=== PATIENT | male | born 1945 | race Caucasian/White ===

== ENCOUNTER 2022-04-07 17:57 | Inpatient (IN) | payer OTHER, SELFPAY ==
--- NOTE | ~2022-04-07 | XR_ITS ---
EXAMINATION: XR CHEST CLINICAL INFORMATION: 76-year-old male with dyspnea COMPARISON: None TECHNIQUE: Frontal view of the chest was obtained. FINDINGS: There is low lung volume bilaterally with mild vascular redistribution. Cardiomediastinal silhouette is normal. There is no pleural effusion or consolidation. XR/XR chest 1V IMPRESSION: Mild CHF
--- NOTE | ~2022-04-07 | XR_ITS ---
EXAMINATION: XR CHEST CLINICAL INFORMATION: NG tube placement. Covid positive. COMPARISON: 04/07/2022 TECHNIQUE: Frontal view of the chest was obtained. FINDINGS: Enteric tube extends into the stomach. Cardiac leads overlie the chest. The lungs are well expanded. There is no focal consolidation, edema, or effusion. No pneumothorax. The cardiomediastinal silhouette is within normal limits of size with a calcified aorta. No acute osseous abnormality. XR/XR chest 1V IMPRESSION: Enteric tube extending into the stomach.
--- NOTE | ~2022-04-07 | CT_ITS ---
EXAMINATION: CT ABDOMEN AND PELVIS WITHOUT CONTRAST CLINICAL INFORMATION: Vomiting COMPARISON: None TECHNIQUE: Multidetector volumetric imaging was performed from the superior aspect of the liver through the pubic symphysis. Sagittal and coronal reformatted images were obtained on the technologist's workstation. This CT examination was performed using dose optimization techniques as appropriate, variously including the following: *Automated exposure control *Adjustment of mA and/or kV according to patient size (this includes techniques or standardized protocols for targeted exams where dose is matched to indication/reason for exam; i.e. extremities or head) *Use of iterative reconstruction technique DLP: 1797 mGy-cm FINDINGS: LUNG BASES: Bibasilar atelectasis. The visualized cardiac structures are unremarkable. Bilateral gynecomastia. LIVER, GALLBLADDER, AND BILIARY TREE: The liver is normal in size, shape, and attenuation. No focal hepatic lesion or biliary ductal dilatation is present. Multiple stones layering in the gallbladder lumen. No wall thickening or inflammatory change. PANCREAS: Unremarkable. SPLEEN: Unremarkable. ADRENAL GLANDS: Unremarkable. KIDNEYS AND URETERS: The kidneys are normal in size, shape, and attenuation. No hydronephrosis, hydroureter, or calculi seen. No perinephric stranding. Excretion of contrast bilaterally. BLADDER: Contrast filled. No wall thickening. GASTROINTESTINAL TRACT: Distended stomach no wall thickening. Normal caliber small bowel. No obstruction. There is extensive colonic diverticulosis without diverticulitis. No colonic wall thickening. No free air or free fluid. There is mild stranding of the fat in the perirectal region. ABDOMINAL WALL: No significant hernia is appreciated. LYMPH NODES: No lymphadenopathy. There is appearance of a lizbeth mesentery . VASCULAR: Normal caliber aorta with moderate atherosclerotic calcification. Duplicated IVC. PELVIC VISCERA: The prostate and seminal vesicles are unremarkable. OSSEOUS STRUCTURES: No acute or suspicious osseous abnormality. Moderate degenerative changes throughout the spine. Mild degenerative changes of the hips. CT/CT abdomen pelvis wo con IMPRESSION: No bowel obstruction. The stomach is significantly distended. Cholelithiasis without evidence of cholecystitis. Appearance of a lizbeth mesentery . Typically this is not of clinical significance, but 6 month follow-up abdominal CT could be performed to evaluate for stability. Fleischner guidelines were followed.
--- NOTE | ~2022-04-07 | CT_ITS ---
EXAMINATION: CT ANGIOGRAM OF THE CHEST WITH AND WITHOUT CONTRAST (CT PULMONARY ANGIOGRAM FOR PE) CLINICAL INFORMATION: hypoxia, COVID + elevated ddimer COMPARISON: None TECHNIQUE: Prior to contrast administration, noncontrast localization images were obtained. Subsequently, multidetector volumetric imaging was performed from the thoracic inlet to below the diaphragms following the administration of 75 mL Omnipaque 350 intravenous contrast. No contrast reaction reported Sagittal, coronal, and MIP oblique sagittal reformatted images were obtained on the CT workstation, uploaded to PACS, and reviewed. This CT examination was performed using dose optimization techniques as appropriate, variously including the following: *Automated exposure control *Adjustment of mA and/or kV according to patient size (this includes techniques or standardized protocols for targeted exams where dose is matched to indication/reason for exam; i.e. extremities or head) *Use of iterative reconstruction technique Total exam dose-length product 666 mGy-cm FINDINGS: QUALITY OF STUDY/CONTRAST BOLUS: Suboptimal. PULMONARY ARTERIES: There is extensive respiratory motion artifact and contrast under filling of the segmental and subsegmental pulmonary arteries particularly to the lower lobes. No central pulmonary embolus seen. THORACIC AORTA: No aneurysm or dissection. LUNG: Patchy areas of nodular groundglass opacity are seen in the right lower lobe. Mild bibasilar atelectasis. Bilateral lower lobe bronchial wall thickening. No dense focal consolidation. PLEURA: No pleural effusion or pneumothorax. MEDIASTINUM: Borderline cardiomegaly. Three-vessel coronary artery calcification. No hilar or mediastinal lymphadenopathy. No evidence of septal bowing or right heart strain. CHEST WALL/AXILLA: Bilateral gynecomastia. No axillary or internal mammary lymphadenopathy. OSSEOUS STRUCTURES: No acute or suspicious osseous abnormality. UPPER ABDOMEN: Gallstones. No adrenal mass. Significantly distended stomach. No reflux of contrast into the hepatic veins to suggest elevated right heart pressures. CT/CT angio chest PE protocol IMPRESSION: Limited study. No central pulmonary embolus. The stomach is only partially imaged but appears significantly dilated.
--- NOTE | 2022-04-07 18:13 | ED.NAVMDI ---
HPI - Nausea/Vomiting/Diarrhea General Chief complaint: General Medical Stated complaint: Nausea Vomiting covid+ Time Seen by Provider: 04/07/22 18:13 Source: patient Mode of arrival: EMS Limitations: no limitations History of Present Illness HPI Narrative: 76 yo male with hx of anemia, alcoholism, HTN, obesity, unsteady gait, CKD, COVID + as of saturday he is vaccinated - reports vomiting since yesterday he denies chest pain/shortness of breath. He has no abdominal pain or diarrhea. He states he otherwise feels fine. EMS notes his O2 sats were 88% en route. No treatments for COVID at this time. MD elicited complaint: nausea and vomiting Onset (ago): day(s) (2) Description of vomiting: food contents, watery, bilious and other (patient possibly had coffee ground emesis per SNF but EMS is not sure and did not witness this.) Associated nausea: Yes Associated abdominal pain: No Location of pain: none Severity: mild Exacerbating factors: eating Relieving factors: none Context: sick contacts and other (dx with COVID on saturday ) Associated symptoms: loss of appetite, malaise and nausea/vomiting Treatment prior to arrival: other (zofran at SNF and with EMS) Related Data Allergies Allergy/AdvReac Type Severity Reaction Status Date / Time No Known Allergies Allergy Verified 04/07/22 18:25 Review of Systems Review of Systems: Constitutional : No Weight loss, No Fever, No Chills, pos fatigue, pos malaise ENT/Mouth : No sore throat, No Rhinorrhea Eyes: No Swelling, No Redness Cardiovascular : No Chest Pain, No SOB, NoEdema Respiratory : No Cough, No Sputum, No Wheezing Gastrointestinal : Positive Nausea, Positive Vomiting, no Diarrhea, no abdominal Pain, No Hematochezia, No Melena Genitourinary : No Dysuria, No Urinary Frequency, No Hematuria, No Urgency Musculoskeletal : No joint pain, No Myalgias, No Joint Swelling Skin : No Skin Lesions, No rash Neuro : pos Weakness, No Numbness, No Dizziness, No Headache Psych : No Anxiety/Panic, No Depression Heme/Lymph: No Bruising, No Lymphadenopathy Endocrine : No Polyuria, No Polydipsia All other systems reviewed and are negative. Gastrointestinal: Gastrointestinal: Reports nausea PMFSH Past Medical History Attestation statement: The following information was validated with the patient. Medical History Alcoholism Anemia CKD (chronic kidney disease) HTN (hypertension) Unsteady gait Social History Social History (Updated 04/07/22 @ 18:38 by Amy Durand DO) Patient Tobacco Use Status: Never used Tobacco Advance Directives: No Advance Directives Information Provided: No Physical Exam Vital Signs: Vital Signs: Last Vital Signs Temp 98.5 F 04/07/22 22:58 Pulse 77 04/07/22 22:58 Resp 16 04/07/22 22:58 BP 140/56 H 04/07/22 22:58 Pulse Ox 91 L 04/07/22 22:58 O2 Del Method 04/07/22 22:58 O2 Flow Rate 2 04/07/22 22:58 BMI result Body Mass Index 48.4 Appearance: Alert. Oriented X3. No acute distress. Eyes: Pupils equal, round and reactive to light. ENT: Pharynx normal. Neck: Normal inspection. Neck supple. CVS: Normal heart rate and rhythm. Pulses normal. Respiratory: No respiratory distress. Breath sounds diminished at the bases bilaterally Abdomen: Soft and non-tender. Obese Skin: Skin warm and dry. pale skin color. Extremities:bilateral pitting 2+ lower extremity edema. No calf ttp. Dry thickened skin on toes yellow Neuro: Oriented X 3. No motor deficit. No sensory deficit. Course Course Course Narrative: ddimer elevated CTA for PE ordered given hypoxia, obesity and COVID + IV lasix ordered - has CXR edema and peripheral edema stomach distended - CT scan ordered marked stomach distention will order NG tube given persistent NV - will need admission MDM - Nausea/Vomiting/Diarrhea MDM Narrative Medical decision making narrative: 76 yo male with hx of anemia, alcoholism, HTN, obesity, unsteady gait, CKD, COVID + here with c/o nausea and vomiting since yesterday he denies abdominal pain. He also denies CP/SOB. At this time he is hypoxic. Will obtain basic labs, cultures, lactic acid, EKG, CXR for pneumonia, ddimer/troponin. IV pepcid in case there was some mild coffee ground emesis, given hypoxia will also start on dexamethasone. Anticipate admission given hypoxia. Lab Data Result diagrams: 04/07/22 19:52 04/07/22 19:52 Labs: Lab Results 04/07/22 04/07/22 04/07/22 Range/Units 19:52 19:52 19:52 WBC 13.0 H (4.8-10.8) X10*3/uL RBC 5.83 H (4.60-5.80) X10*6/uL Hgb 16.4 (14.0-18.0) g/dl Hct 50.9 (42.0-52.0) % MCV 87.3 (80.0-98.0) fL MCH 28.1 (27.0-33.0) pg MCHC 32.2 (31.0-36.0) g/dl RDW 13.7 (11.0-16.0) % Plt Count 191 (160-400) X10*3/uL MPV 9.4 (9.4-12.4) fL Immature Gran % (Auto) 0.5 H (0.0-0.4) % Neut % (Auto) 88.3 H (45-73) % Lymph % (Auto) 3.5 L (20-40) % [place] % (Auto) 7.5 (2-11) % Eos % (Auto) 0.0 (0-4) % Baso % (Auto) 0.2 (0-2) % Lymph # (Auto) 0.5 L (1.2-4.9) X10*3/uL [place] # (Auto) 1.0 (0.1-1.2) X10*3/uL Eos # (Auto) 0.0 (0.0-0.4) X10*3/uL Baso # (Auto) 0.0 (0.0-0.2) X10*3/uL Abs Immat Gran (auto) 0.06 H (0.00-0.03) X10*3/uL Absolute Neuts (auto) 11.5 H (2.0-8.3) x10*3/uL Absolute Nucleated RBC 0.000 (0.0-0.012) X10*3/uL Nucleated RBC % (auto) 0.0 (0.0-0.2) /100WBC Smear Tech's Comments VERIFIED PT (10.0-13.1) SEC INR (0.9-1.1) D-Dimer High Sensitivty NG/ML VBG pH (7.32-7.43) VBG pCO2 mmHg VBG pO2 mmHg VBG HCO3 (22-26) mmol/L VBG O2 Saturation % VBG Base Excess mmol/L Sodium 143 (135-145) mmol/L Potassium 3.7 (3.3-5.1) mmol/L Chloride 93 L (96-108) mmol/L Carbon Dioxide 36 H (22-29) mmol/L Anion Gap 18 (12-20) BUN 17 H (9-16) mg/dL Creatinine 0.78 (0.5-1.4) mg/dL Estim Creat Clear Calc 130.8 Estimated GFR > 60 Random Glucose 172 H (60-115) mg/dL Lactic Acid (0.5-2.0) mmol/L Calcium 9.3 (8.4-10.2) mg/dL Magnesium 1.9 (1.6-2.6) mg/dL Total Bilirubin 0.6 (0.0-1.0) mg/dL Direct Bilirubin 0.3 (0.0-0.5) mg/dL AST 18 (5-37) U/L ALT 15 (0-40) U/L Alkaline Phosphatase 86 (39-117) U/L Lactate Dehydrogenase 192 (118-273) U/L Total Creatine Kinase 94 (38-174) U/L Troponin I High Sens 4.7 (<3.5-35.0) ng/L C-Reactive Protein 4.34 H (< or = 0.50) mg/dL B-Natriuretic Peptide 22 (<100) pg/mL Total Protein 7.9 (6.5-8.0) g/dL Albumin 3.9 (3.5-5.0) g/dL Lipase 24 (8-78) U/L Procalcitonin ng/mL COVID-19 ([facility]) (Negative) COVID-19 Clin Com 04/07/22 04/07/22 04/07/22 Range/Units 19:52 19:52 19:52 WBC (4.8-10.8) X10*3/uL RBC (4.60-5.80) X10*6/uL Hgb (14.0-18.0) g/dl Hct (42.0-52.0) % MCV (80.0-98.0) fL MCH (27.0-33.0) pg MCHC (31.0-36.0) g/dl RDW (11.0-16.0) % Plt Count (160-400) X10*3/uL MPV (9.4-12.4) fL Immature Gran % (Auto) (0.0-0.4) % Neut % (Auto) (45-73) % Lymph % (Auto) (20-40) % [place] % (Auto) (2-11) % Eos % (Auto) (0-4) % Baso % (Auto) (0-2) % Lymph # (Auto) (1.2-4.9) X10*3/uL [place] # (Auto) (0.1-1.2) X10*3/uL Eos # (Auto) (0.0-0.4) X10*3/uL Baso # (Auto) (0.0-0.2) X10*3/uL Abs Immat Gran (auto) (0.00-0.03) X10*3/uL Absolute Neuts (auto) (2.0-8.3) x10*3/uL Absolute Nucleated RBC (0.0-0.012) X10*3/uL Nucleated RBC % (auto) (0.0-0.2) /100WBC Smear Tech's Comments PT 11.8 (10.0-13.1) SEC INR 1.0 (0.9-1.1) D-Dimer High Sensitivty 441 NG/ML VBG pH (7.32-7.43) VBG pCO2 mmHg VBG pO2 mmHg VBG HCO3 (22-26) mmol/L VBG O2 Saturation % VBG Base Excess mmol/L Sodium (135-145) mmol/L Potassium (3.3-5.1) mmol/L Chloride (96-108) mmol/L Carbon Dioxide (22-29) mmol/L Anion Gap (12-20) BUN (9-16) mg/dL Creatinine (0.5-1.4) mg/dL Estim Creat Clear Calc Estimated GFR Random Glucose (60-115) mg/dL Lactic Acid 1.7 (0.5-2.0) mmol/L Calcium (8.4-10.2) mg/dL Magnesium (1.6-2.6) mg/dL Total Bilirubin (0.0-1.0) mg/dL Direct Bilirubin (0.0-0.5) mg/dL AST (5-37) U/L ALT (0-40) U/L Alkaline Phosphatase (39-117) U/L Lactate Dehydrogenase (118-273) U/L Total Creatine Kinase (38-174) U/L Troponin I High Sens (<3.5-35.0) ng/L C-Reactive Protein (< or = 0.50) mg/dL B-Natriuretic Peptide (<100) pg/mL Total Protein (6.5-8.0) g/dL Albumin (3.5-5.0) g/dL Lipase (8-78) U/L Procalcitonin ng/mL COVID-19 ([facility]) Positive A (Negative) COVID-19 Clin Com See Note 04/07/22 04/07/22 04/07/22 Range/Units 19:52 19:52 19:59 WBC (4.8-10.8) X10*3/uL RBC (4.60-5.80) X10*6/uL Hgb (14.0-18.0) g/dl Hct (42.0-52.0) % MCV (80.0-98.0) fL MCH (27.0-33.0) pg MCHC (31.0-36.0) g/dl RDW (11.0-16.0) % Plt Count (160-400) X10*3/uL MPV (9.4-12.4) fL Immature Gran % (Auto) (0.0-0.4) % Neut % (Auto) (45-73) % Lymph % (Auto) (20-40) % [place] % (Auto) (2-11) % Eos % (Auto) (0-4) % Baso % (Auto) (0-2) % Lymph # (Auto) (1.2-4.9) X10*3/uL [place] # (Auto) (0.1-1.2) X10*3/uL Eos # (Auto) (0.0-0.4) X10*3/uL Baso # (Auto) (0.0-0.2) X10*3/uL Abs Immat Gran (auto) (0.00-0.03) X10*3/uL Absolute Neuts (auto) (2.0-8.3) x10*3/uL Absolute Nucleated RBC (0.0-0.012) X10*3/uL Nucleated RBC % (auto) (0.0-0.2) /100WBC Smear Tech's Comments PT (10.0-13.1) SEC INR (0.9-1.1) D-Dimer High Sensitivty NG/ML VBG pH 7.46 H (7.32-7.43) VBG pCO2 62 mmHg VBG pO2 62 mmHg VBG HCO3 44 H (22-26) mmol/L VBG O2 Saturation 89.0 % VBG Base Excess 16.2 mmol/L Sodium (135-145) mmol/L Potassium (3.3-5.1) mmol/L Chloride (96-108) mmol/L Carbon Dioxide (22-29) mmol/L Anion Gap (12-20) BUN (9-16) mg/dL Creatinine (0.5-1.4) mg/dL Estim Creat Clear Calc Estimated GFR Random Glucose (60-115) mg/dL Lactic Acid (0.5-2.0) mmol/L Calcium (8.4-10.2) mg/dL Magnesium (1.6-2.6) mg/dL Total Bilirubin (0.0-1.0) mg/dL Direct Bilirubin (0.0-0.5) mg/dL AST (5-37) U/L ALT (0-40) U/L Alkaline Phosphatase (39-117) U/L Lactate Dehydrogenase (118-273) U/L Total Creatine Kinase (38-174) U/L Troponin I High Sens Cancelled (<3.5-35.0) ng/L C-Reactive Protein (< or = 0.50) mg/dL B-Natriuretic Peptide (<100) pg/mL Total Protein (6.5-8.0) g/dL Albumin (3.5-5.0) g/dL Lipase (8-78) U/L Procalcitonin 0.05 ng/mL COVID-19 ([facility]) (Negative) COVID-19 Clin Com ECG Data Attestation: I personally reviewed and interpreted this ECG as follows: ECG interpretation date: 04/07/22 ECG interpretation time: 19:23 Interpretation: Rate: 84 Rhythm: NSR [place]: normal Normal P waves. Normal SUSAN. Normal QRS complex. ST T wave : normal no JACOB qTC: normal prior studies: no acute ischemia The study has been interpreted contemporaneously by me. . Discharge Plan Discharge Clinical Impression: COVID-19, Hypoxia, CRP elevated, Vomiting, Gastric dilation Patient Disposition: Admitted As Inpatient
[2022-04-07 18:23] VITALS: BP 148/69; PULSE 84; RESP 11; TEMP 37.1; O2SAT 88; BMI 48.4
--- NOTE | 2022-04-07 18:27 | ECG_ITS ---
Test Reason : VOMITING Blood Pressure : / mmHG Vent. Rate : 084 BPM Atrial Rate : 084 BPM P-R Int : 164 ms QRS Dur : 094 ms QT Int : 388 ms P-R-T Axes : 063 071 056 degrees QTc Int : 458 ms Normal sinus rhythm Normal ECG No previous ECGs available Referred By: Amy Durand Electronically Signed By:JUNA FAIRBANKS
[2022-04-07 18:31] VITALS: O2SAT 92
[2022-04-07] MEDS: Famotidine/PF 20 MG/2 ML VIAL IVPUSH (18:46)
[2022-04-07] MEDS: dexAMETHasone sod phosphate 4 MG/ML VIAL 6 MG IVPUSH (18:46)
[2022-04-07 20:02] LABS: Venous Blood Gas Refer to POC result
[2022-04-07 20:02] LABS: Basophils Percent Auto 0.2 % (0-2); MANUAL DIFF FLAG SCAN; PLT CLUMP 1; SCAN SMEAR FLAG 1
[2022-04-07 20:04] LABS: VBG Base Excess 16.2 mmol/L; VBG HCO3 44 mmol/L (22-26); VBG pCO2 62 mmHg; VBG pH 7.46 (7.32-7.43); VBG pO2 62 mmHg
[2022-04-07 20:04] LABS: Red Blood Count 5.83 X10*6/uL (4.60-5.80)
[2022-04-07 20:09] LABS: Prothrombin Time 11.8 SEC (10.0-13.1)
[2022-04-07 20:10] LABS: COVID-19 Test Positive (Negative); Mean Corpuscular Volume 87.3 fL (80.0-98.0); Mean Platelet Volume 9.4 fL (9.4-12.4); Platelet Count 191 X10*3/uL (160-400)
[2022-04-07 20:11] LABS: D Dimer High Sensitivity 441 NG/ML
[2022-04-07 20:12] LABS: Hematocrit 50.9 % (42.0-52.0); Hemoglobin 16.4 g/dl (14.0-18.0); Imm Gran Abs Auto 0.06 X10*3/uL (0.00-0.03); Imm Gran Pct Auto 0.5 % (0.0-0.4); Lymphocytes Absolute Auto 0.5 X10*3/uL (1.2-4.9); Lymphocytes Percent Auto 3.5 % (20-40); Mean Corpuscular HGB Conc 32.2 g/dl (31.0-36.0); Mean Corpuscular Hemoglobin 28.1 pg (27.0-33.0); Monocytes Percent Auto 7.5 % (2-11); Neutrophils Absolute Auto 11.5 x10*3/uL (2.0-8.3); Neutrophils Percent Auto 88.3 % (45-73); Red Cell Distribution Width 13.7 % (11.0-16.0)
[2022-04-07 20:16] LABS: Lactic Acid 1.7 mmol/L (0.5-2.0)
[2022-04-07 20:22] LABS: Alanine Aminotransferase 15 U/L (0-40); Albumin Level 3.9 g/dL (3.5-5.0); Alkaline Phosphatase 86 U/L (39-117); Anion Gap 18 (12-20); Aspartate Amino Transferase 18 U/L (5-37); Bilirubin Direct 0.3 mg/dL (0.0-0.5); Bilirubin Total 0.6 mg/dL (0.0-1.0); Blood Urea Nitrogen 17 mg/dL (9-16); C Reactive Protein 4.34 mg/dL (< or = 0.50); Calcium 9.3 mg/dL (8.4-10.2); Carbon Dioxide 36 mmol/L (22-29); Chloride 93 mmol/L (96-108); Creatinine Clr Calc Pharmacy 130.8; Estimated Glomerular Filt Rate > 60; Glucose Random 172 mg/dL (60-115); Lactate Dehydrogenase 192 U/L (118-273); Lipase 24 U/L (8-78); Magnesium 1.9 mg/dL (1.6-2.6); Potassium 3.7 mmol/L (3.3-5.1); Sodium 143 mmol/L (135-145); Total Protein 7.9 g/dL (6.5-8.0)
[2022-04-07 20:30] LABS: B Type Natriuretic Peptide 22 pg/mL (<100); Troponin-I High Sensitivity 4.7 ng/L (<3.5-35.0)
[2022-04-07 20:37] LABS: SLIDE REVIEW VERIFIED
[2022-04-07] MEDS: iohexoL 350 MG/ML 100 ML INFUS..BTL IV (20:57)
[2022-04-07] MEDS: Metoclopramide HCl 10 MG/2 ML VIAL IVPUSH (20:58)
[2022-04-07] MEDS: diphenhydrAMINE HCL 50 MG/ML VIAL 25 MG IVPUSH (20:58)
[2022-04-07] MEDS: Furosemide 20 MG/2 ML VIAL IVPUSH (20:58)
[2022-04-07 21:01] LABS: Procalcitonin 0.05 ng/mL
[2022-04-07 22:58] VITALS: BP 140/56; PULSE 77; RESP 16; TEMP 36.9; O2SAT 91
--- NOTE | 2022-04-07 23:54 | P.HPHOSP_ITS ---
History of Present Illness Date of Service: 04/07/22 Chief Complaint: Nausea/vomiting/diarrhea 77-year-old male with a past medical history of hypertension, hyperlipidemia, CKD, anemia, alcohol abuse, anxiety, depression, BPH, history of unsteady gait/recurrent falls presented to the hospital today with a chief complaint of nausea/vomiting/diarrhea. Patient reports that for the past 1 day he has been having na usea/vomiting/diarrhea. Had multiple episodes. Denies any blood in the vomitus or stool. Denies any cough or sputum production. Denies any fevers. Denies any urinary symptoms. Mentions that he has COVID-19 vaccinated. Review of all other systems is negative except mentioned above ER course: Per ER team patient was noted to be mildly hypoxic on presentation; chest x-ray showed no acute findings; COVID-19 positive. Placed on supplemental oxygen. On CT abdomen showed severely dilated stomach; placed NG tube for decompression. Admitted for further management PMFSH Medical History Alcoholism Anemia CKD (chronic kidney disease) HTN (hypertension) Unsteady gait Pertinent family history: Reviewed Social History Household Members: Other Household Members Other:: faclity Housing: [facility] Do you presently have visiting nurse or other home services: Yes (alf per pt) Unable to assess alcohol history related to: Unknown Patient Tobacco Use Status: Never used Tobacco Current occupational status: retired Meds Allergies Allergy/AdvReac Type Severity Reaction Status Date / Time No Known Allergies Allergy Verified 04/07/22 18:25 Home Medications Medication Instructions Recorded Confirmed Last Taken Type acamprosate 333 mg tablet,delayed 2 tab PO BID 04/08/22 04/08/22 04/07/22 History release albuterol sulfate 90 mcg/actuation 2 puff inhalation Q4H PRN Wheezing 04/08/22 04/08/22 Unknown History aerosol inhaler (ProAir HFA) amlodipine 2.5 mg tablet 1 tab PO DAILY 04/08/22 04/08/22 04/07/22 History ammonium lactate 12 % lotion 1 applic topical BID 04/08/22 04/08/22 04/06/22 History aspirin 81 mg tablet,delayed 81 mg PO DAILY 04/08/22 04/08/22 04/07/22 History release atorvastatin 20 mg tablet 1 tab PO DAILY 04/08/22 04/08/22 04/07/22 History cholecalciferol (vitamin D3) 25 25 mcg PO DAILY 04/08/22 04/08/22 04/07/22 History mcg (1,000 unit) tablet diclofenac sodium 1 % topical gel 1 g topical Q6H PRN Pain 04/08/22 04/08/22 Unknown History gabapentin 600 mg tablet 1 tab PO TID 04/08/22 04/08/22 04/07/22 History loperamide 2 mg capsule 2 mg PO Q8H PRN Diarrhea 04/08/22 04/08/22 04/07/22 Hist ory ondansetron HCl 4 mg tablet 1 tab PO Q6H PRN Nausea And 04/08/22 04/08/22 04/07/22 History Vomiting oxycodone 5 mg tablet 1 tab PO BID PRN Pain 04/08/22 04/08/22 04/06/22 History polyvinyl alcohol 1.4 % eye drops 1 drp ophthalmic (eye) BID 04/08/22 04/08/22 04/07/22 History (Artificial Tears (polyvinyl alcohol)) sertraline 100 mg tablet 1 tab PO DAILY 04/08/22 04/08/22 04/07/22 History tamsulosin 0.4 mg capsule 1 cap PO BEDTIME 04/08/22 04/08/22 04/06/22 History thiamine HCl (vitamin B1) 100 mg 100 mg PO DAILY 04/08/22 04/08/22 04/07/22 History tablet trazodone 100 mg tablet 1 tab PO BEDTIME 04/08/22 04/08/22 04/07/22 History Physical Exam Vital Signs and Narrative: Vital Signs: Last Vital Signs Temp 98.5 F 04/07/22 22:58 Pulse 77 04/07/22 22:58 Resp 16 04/07/22 22:58 BP 140/56 H 04/07/22 22:58 Pulse Ox 91 L 04/07/22 22:58 O2 Del Method 04/07/22 22:58 O2 Flow Rate 2 04/07/22 22:58 BMI result Body Mass Index 48.4 Gen: Appears be in no acute distress. On supplemental oxygen. Speaks in full sentences. HEENT: NCAT, Moist mucosa. Pulmonary: Slightly diminished breath sounds CVS: Normal S1-S2 Abdomen: BS+, Soft, Nontender Extremities: Warm well perfused Neuro: Alert and awake. Results Labs CBC and Chem 7: 04/09/22 07:22 04/10/22 10:34 Labs: Laboratory Results - last 24 hr 04/07/22 04/07/22 04/07/22 19:52 19:52 19:52 MCV 87.3 MCH 28.1 MCHC 32.2 RDW 13.7 Plt Count 191 MPV 9.4 Immature Gran % (Auto) 0.5 H Neut % (Auto) 88.3 H Lymph % (Auto) 3.5 L [place] % (Auto) 7.5 Eos % (Auto) 0.0 Baso % (Auto) 0.2 Lymph # (Auto) 0.5 L [place] # (Auto) 1.0 Eos # (Auto) 0.0 Baso # (Auto) 0.0 Abs Immat Gran (auto) 0.06 H Absolute Neuts (auto) 11.5 H Absolute Nucleated RBC 0.000 Nucleated RBC % (auto) 0.0 Smear Tech's Comments VERIFIED PT INR D-Dimer High Sensitivty VBG pH VBG pCO2 VBG pO2 VBG HCO3 VBG O2 Saturation VBG Base Excess Anion Gap 18 Estim Creat Clear Calc 130.8 Estimated GFR > 60 Random Glucose 172 H Lactic Acid Calcium 9.3 Magnesium 1.9 Total Bilirubin 0.6 Direct Bilirubin 0.3 AST 18 ALT 15 Alkaline Phosphatase 86 Lactate Dehydrogenase 192 Total Creatine Kinase 94 C-Reactive Protein 4.34 H B-Natriuretic Peptide 22 Total Protein 7.9 Albumin 3.9 Lipase 24 Procalcitonin COVID-19 ([facility]) COVID-19 Clin Com 04/07/22 04/07/22 04/07/22 19:52 19:52 19:52 MCV MCH MCHC RDW Plt Count MPV Immature Gran % (Auto) Neut % (Auto) Lymph % (Auto) [place] % (Auto) Eos % (Auto) Baso % (Auto) Lymph # (Auto) [place] # (Auto) Eos # (Auto) Baso # (Auto) Abs Immat Gran (auto) Absolute Neuts (auto) Absolute Nucleated RBC Nucleated RBC % (auto) Smear Tech's Comments PT 11.8 INR 1.0 D-Dimer High Sensitivty 441 VBG pH VBG pCO2 VBG pO2 VBG HCO3 VBG O2 Saturation VBG Base Excess Anion Gap Estim Creat Clear Calc Estimated GFR Random Glucose Lactic Acid 1.7 Calcium Magnesium Total Bilirubin Direct Bilirubin AST ALT Alkaline Phosphatase Lactate Dehydrogenase Total Creatine Kinase C-Reactive Protein B-Natriuretic Peptide Total Protein Albumin Lipase Procalcitonin COVID-19 ([facility]) Positive A COVID-19 Clin Com See Note 04/07/22 04/07/22 19:52 19:59 MCV MCH MCHC RDW Plt Count MPV Immature Gran % (Auto) Neut % (Auto) Lymph % (Auto) [place] % (Auto) Eos % (Auto) Baso % (Auto) Lymph # (Auto) [place] # (Auto) Eos # (Auto) Baso # (Auto) Abs Immat Gran (auto) Absolute Neuts (auto) Absolute Nucleated RBC Nucleated RBC % (auto) Smear Tech's Comments PT INR D-Dimer High Sensitivty VBG pH 7.46 H VBG pCO2 62 VBG pO2 62 VBG HCO3 44 H VBG O2 Saturation 89.0 VBG Base Excess 16.2 Anion Gap Estim Creat Clear Calc Estimated GFR Random Glucose Lactic Acid Calcium Magnesium Total Bilirubin Direct Bilirubin AST ALT Alkaline Phosphatase Lactate Dehydrogenase Total Creatine Kinase C-Reactive Protein B-Natriuretic Peptide Total Protein Albumin Lipase Procalcitonin 0.05 COVID-19 ([facility]) COVID-19 Clin Com Imaging Radiologist's Impressions: Impressions Chest X-Ray 04/07/22 18:37 IMPRESSION: Mild CHF Chest CTA 04/07/22 20:45 IMPRESSION: Limited study. No central pulmonary embolus. The stomach is only partially imaged but appears significantly dilated. Abdomen/Pelvis CT 04/07/22 22:51 IMPRESSION: No bowel obstruction. The stomach is significantly distended. Cholelithiasis without evidence of cholecystitis. Appearance of a lizbeth mesentery . Typically this is not of clinical significance, but 6 month follow-up abdominal CT could be performed to evaluate for stability. Fleischner guidelines were followed. Assessment and Plan (1) Nausea & vomiting: Status: Acute Plan 77-year-old male with a past medical history of hypertension, hyperlipidemia, CKD, anemia, alcohol abuse, anxiety, depression, BPH, history of unsteady gait/recurrent falls presented to the hospital today with a chief complaint of nausea/vomiting/diarrhea. Nausea/vomiting/diarrhea: Likely viral gastroenteritis a. CT abdomen showed severely dilated stomach-status post NG tube placement for decompression Will also consult General surgery Hypoxia/COVID-19 positive. Placed on supplemental oxygen. Chest x-ray showed no acute findings. Will give Decadron 6 mg IV daily. Id consult. Incidental finding of Lizbeht mesentery on the CT abdomen: A wanted follow-up CT abdomen in 6 months. History of hypertension/hyperlipidemia: Continue home medications History of depression: Continue home sertraline History of BPH: Continue home Flomax History of unsteady gait/recurrent falls: Denies any recent falls. Reports he uses walker. PT/OT eventually. DVT prophylaxis: Lovenox Code status: Full code Quality Stroke Does the patient have a stroke diagnosis?: No VTE Prior VTE?: No VTE Risk Level:: Medical - moderate - high VTE Device Contraindication: Treatment Not Indicated VTE Drug Contraindication: N/A - Med Ordered
[2022-04-08] VITALS (10 sets, daily range): BP systolic 133–178; BP diastolic 59–111; PULSE 44–85; RESP 2–18; TEMP 36.4–37.4; O2SAT 88–96
[2022-04-08] MEDS: ondansetron HCL 4 MG/2 ML VIAL IVPUSH (02:40)
[2022-04-08] MEDS: Enoxaparin Sodium 40 MG/0.4 ML SYRINGE SUBCUT (02:40)
[2022-04-08] MEDS: traZODone HCL 100 MG TABLET PO (02:40)
[2022-04-08 06:54] LABS: MANUAL DIFF FLAG NO
[2022-04-08 06:59] LABS: Basophils Percent Auto 0.1 % (0-2); Hematocrit 49.2 % (42.0-52.0); Hemoglobin 15.5 g/dl (14.0-18.0); Imm Gran Abs Auto 0.02 X10*3/uL (0.00-0.03); Imm Gran Pct Auto 0.2 % (0.0-0.4); Lymphocytes Absolute Auto 0.7 X10*3/uL (1.2-4.9); Lymphocytes Percent Auto 6.5 % (20-40); Mean Corpuscular HGB Conc 31.5 g/dl (31.0-36.0); Mean Corpuscular Hemoglobin 27.9 pg (27.0-33.0); Mean Corpuscular Volume 88.6 fL (80.0-98.0); Mean Platelet Volume 9.4 fL (9.4-12.4); Monocytes Percent Auto 9.7 % (2-11); Neutrophils Absolute Auto 8.7 x10*3/uL (2.0-8.3); Neutrophils Percent Auto 83.5 % (45-73); Platelet Count 216 X10*3/uL (160-400); Red Blood Count 5.55 X10*6/uL (4.60-5.80); Red Cell Distribution Width 13.7 % (11.0-16.0); White Blood Count 10.4 X10*3/uL (4.8-10.8)
[2022-04-08 07:14] LABS: Anion Gap 17 (12-20); Blood Urea Nitrogen 18 mg/dL (9-16); Carbon Dioxide 35 mmol/L (22-29); Chloride 93 mmol/L (96-108); Creatinine Clr Calc Pharmacy 132.5; Estimated Glomerular Filt Rate > 60; Glucose Random 144 mg/dL (60-115); Sodium 141 mmol/L (135-145)
[2022-04-08 07:26] LABS: Glucose, Whole Blood 137 mg/dL (60-115)
--- NOTE | 2022-04-08 07:51 | PC.NURSE ---
Sebastian from [facility], called requesting an update on pt. Current plan of care reported to Katie. Hutton can be reached at ext [phone].
--- NOTE | 2022-04-08 08:28 | PHA.MEDREC ---
Pharmacy Consult ? Medication Reconciliation Pharmacy has completed the medication reconciliation.
[2022-04-08] MEDS: Tamsulosin HCL 0.4 MG CAPSULE PO (08:37)
[2022-04-08] MEDS: 0.9 % Sodium Chloride Flush 3 ML SYRINGE IVFLUSH (08:37)
[2022-04-08] MEDS: dexAMETHasone sod phosphate 4 MG/ML VIAL 6 MG IVPUSH (08:37)
[2022-04-08] MEDS: Sertraline HCL 100 MG TABLET PO (08:37)
[2022-04-08] MEDS: Atorvastatin Calcium 20 MG TABLET PO (08:37)
[2022-04-08] MEDS: Gabapentin 600 MG TABLET PO (08:37)
--- NOTE | 2022-04-08 08:53 | P.CONGS_ITS ---
History of Present Illness Consult details Consult date: 04/08/22 Requesting physician: Ofe Fernandez Narrative: 77-year-old male patient presenting to the emergency department with complaints of nausea, vomiting, and diarrhea. In the emergency department the patient was noted to be hypoxic requiring supplemental oxygenation. He was determined to be COVID-19 positive. His past history is significant for hypertension, hyperlipidemia, chronic kidney disease, anemia, alcohol abuse, anxiety, depression, BPH, and recurring falls. The nausea and vomiting started approximately 1 day prior to presentation. The diarrhea also started 1 day ago and was without blood. Workup in the emergency department revealed a WBC of 13.0. CT abdomen and pelvis was significant for a dilated stomach and duodenum with normal jejunum and ileum and no evidence of bowel obstruction. Denita mesentery was also identified in the perirectal region. A nasogastric tube was placed in the emergency department. Patient does report a productive cough today. Review of Systems Review of Systems: Yes all other systems are reviewed and are negative Constitutional: Constitutional: Reports body ache(s), Denies chills, Denies fever(s) and Reports frequent falls Cardiovascular: Cardiovascular: Reports Abdominal Distension, Denies chest pain, Denies palpitations and Reports dyspnea Respiratory: Respiratory: Reports cough, Reports excessive phlegm production and Reports dyspnea Gastrointestinal: Gastrointestinal: Denies abdominal pain, Reports diarrhea, Reports nausea and Reports vomiting Genitourinary: Genitourinary: Reports no additional male genitourinary complaints Neurologic: Reports frequent falls Endocrine: Endocrine: Denies palpitations PMFSH Past Medical History Medical History Alcoholism Anemia CKD (chronic kidney disease) HTN (hypertension) Unsteady gait Social History Social History Patient Tobacco Use Status: Never used Tobacco Advance Directives: No Advance Directives Information Provided: No Meds Allergies Allergy/AdvReac Type Severity Reaction Status Date / Time No Known Allergies Allergy Verified 04/07/22 18:25 Active Medications: Current Medications Acetaminophen (Acetaminophen 325 Mg Tablet) 650 mg PO Q6H PRN PRN Reason: Pain, Mild (Pain Scale 1-3) Atorvastatin Calcium (Atorvastatin Calcium 20 Mg Tablet) 20 mg PO DAILY [facility] Last Admin: 04/08/22 08:37 Dose: 20 mg Dexamethasone Sodium Phosphate (Dexamethasone Sod Phosphate 4 Mg/Ml Vial) 6 mg IVPUSH DAILY [facility] Last Admin: 04/08/22 08:37 Dose: 6 mg Dextrose (Dextrose 50 % 25 Gm/50 Ml Syringe) 25 gm IVPUSH Q15M PRN; Protocol PRN Reason: per Hypoglycemia Standing Ord. Enoxaparin Sodium (Enoxaparin Sodium 40 Mg/0.4 Ml Syringe) 40 mg SUBCUT Q24H [facility] Last Admin: 04/08/22 02:40 Dose: 40 mg Gabapentin (Gabapentin 600 Mg Tablet) 600 mg PO TID [facility] Last Admin: 04/08/22 08:37 Dose: 600 mg Glucose (Glucose Gel 15 Gm Gel..Gram.) 15 gm PO Q15M PRN; Protocol PRN Reason: per Hypoglycemia Standing Ord. Insulin Human Lispro (Insulin Lispro 100 Unit/Ml 3 Ml Vial) 0 unit SUBCUT QIDACHS [facility]; Protocol Last Admin: 04/08/22 07:54 Dose: Not Given Melatonin (Melatonin 3 Mg Tablet) 6 mg PO BEDTIME PRN PRN Reason: Insomnia Ondansetron HCl (Ondansetron Hcl 4 Mg/2 Ml Vial) 4 mg IVPUSH Q8H PRN PRN Reason: Nausea and Vomiting Last Admin: 04/08/22 02:40 Dose: 4 mg Sertraline HCl (Sertraline Hcl 100 Mg Tablet) 100 mg PO DAILY [facility] Last Admin: 04/08/22 08:37 Dose: 100 mg Sodium Chloride (0.9 % Sodium Chloride Flush 3 Ml Syringe) 3 ml IVFLUSH QSHIFT [facility] Last Admin: 04/08/22 08:37 Dose: 3 ml Tamsulosin HCl (Tamsulosin Hcl 0.4 Mg Capsule) 0.4 mg PO DAILY [facility] Last Admin: 04/08/22 08:37 Dose: 0.4 mg Trazodone HCl (Trazodone Hcl 100 Mg Tablet) 100 mg PO BEDTIME [facility] Last Admin: 04/08/22 02:40 Dose: 100 mg Home Medications Medication Instructions Recorded Confirmed Last Taken Type acamprosate 333 mg tablet,delayed 2 tab PO BID 04/08/22 04/08/22 04/07/22 History release albuterol sulfate 90 mcg/actuation 2 puff inhalation Q4H PRN Wheezing 04/08/22 04/08/22 Unknown History aerosol inhaler (ProAir HFA) amlodipine 2.5 mg tablet 1 tab PO DAILY 04/08/22 04/08/22 04/07/22 History ammonium lactate 12 % lotion 1 applic topical BID 04/08/22 04/08/22 04/06/22 History aspirin 81 mg tablet,delayed 81 mg PO DAILY 04/08/22 04/08/22 04/07/22 History release atorvastatin 20 mg tablet 1 tab PO DAILY 04/08/22 04/08/22 04/07/22 History cholecalciferol (vitamin D3) 25 25 mcg PO DAILY 04/08/22 04/08/22 04/07/22 Histo ry mcg (1,000 unit) tablet diclofenac sodium 1 % topical gel 1 g topical Q6H PRN Pain 04/08/22 04/08/22 Unknown History gabapentin 600 mg tablet 1 tab PO TID 04/08/22 04/08/22 04/07/22 History loperamide 2 mg capsule 2 mg PO Q8H PRN Diarrhea 04/08/22 04/08/22 04/07/22 History ondansetron HCl 4 mg tablet 1 tab PO Q6H PRN Nausea And 04/08/22 04/08/22 04/07/22 History Vomiting oxycodone 5 mg tablet 1 tab PO BID PRN Pain 04/08/22 04/08/22 04/06/22 History polyvinyl alcohol 1.4 % eye drops 1 drp ophthalmic (eye) BID 04/08/22 04/08/22 04/07/22 History (Artificial Tears (polyvinyl alcohol)) sertraline 100 mg tablet 1 tab PO DAILY 04/08/22 04/08/22 04/07/22 History tamsulosin 0.4 mg capsule 1 cap PO BEDTIME 04/08/22 04/08/22 04/06/22 History thiamine HCl (vitamin B1) 100 mg 100 mg PO DAILY 04/08/22 04/08/22 04/07/22 History tablet trazodone 100 mg tablet 1 tab PO BEDTIME 04/08/22 04/08/22 04/07/22 History Physical Exam Vital Signs: Vital Signs: Last Vital Signs Temp 97.5 F 04/08/22 07:54 Pulse 78 04/08/22 07:54 Resp 16 04/08/22 07:54 BP 173/85 H 04/08/22 07:54 Pulse Ox 96 04/08/22 07:54 O2 Del Method 04/08/22 07:54 O2 Flow Rate 6 04/08/22 07:54 BMI result Body Mass Index 48.4 Const: General: no acute distress and tired appearing Nutritional Appearance: obese Orientation/consciousness: patient oriented x3 HEENT: Head: Yes normocephalic and Yes atraumatic Resp: Effort & Inspection: Actively coughing and tachypneic Auscultation: rhonchi Cardio: Rate: regular rate Rhythm: regular rhythm GI: Inspection: Yes distended and Yes obesity Palpation (GI): Soft to palpation, nontender, no guarding and not rigid Percussion: Yes normal to percussion Auscultation: normal bowel sounds Skin: General skin exam: no rashes or lesions noted Neuro: General: patient oriented x3 Extrem: General: Yes normal to inspection Results Labs Result diagrams: 04/08/22 06:36 04/08/22 06:36 Labs: Abnormal lab results 04/07/22 04/07/22 04/07/22 Range/Units 19:52 19:52 19:52 WBC 13.0 H (4.8-10.8) X10*3/uL RBC 5.83 H (4.60-5.80) X10*6/uL Immature Gran % (Auto) 0.5 H (0.0-0.4) % Neut % (Auto) 88.3 H (45-73) % Lymph % (Auto) 3.5 L (20-40) % Lymph # (Auto) 0.5 L (1.2-4.9) X10*3/uL Abs Immat Gran (auto) 0.06 H (0.00-0.03) X10*3/uL Absolute Neuts (auto) 11.5 H (2.0-8.3) x10*3/uL VBG pH (7.32-7.43) VBG HCO3 (22-26) mmol/L Chloride 93 L (96-108) mmol/L Carbon Dioxide 36 H (22-29) mmol/L BUN 17 H (9-16) mg/dL POC Glucose (60-115) mg/dL Random Glucose 172 H (60-115) mg/dL C-Reactive Protein 4.34 H (< or = 0.50) mg/dL COVID-19 ([facility]) Positive A (Negative) 04/07/22 04/08/22 04/08/22 Range/Units 19:59 06:36 06:36 WBC (4.8-10.8) X10*3/uL RBC (4.60-5.80) X10*6/uL Immature Gran % (Auto) (0.0-0.4) % Neut % (Auto) 83.5 H (45-73) % Lymph % (Auto) 6.5 L (20-40) % Lymph # (Auto) 0.7 L (1.2-4.9) X10*3/uL Abs Immat Gran (auto) (0.00-0.03) X10*3/uL Absolute Neuts (auto) 8.7 H (2.0-8.3) x10*3/uL VBG pH 7.46 H (7.32-7.43) VBG HCO3 44 H (22-26) mmol/L Chloride 93 L (96-108) mmol/L Carbon Dioxide 35 H (22-29) mmol/L BUN 18 H (9-16) mg/dL POC Glucose (60-115) mg/dL Random Glucose 144 H (60-115) mg/dL C-Reactive Protein (< or = 0.50) mg/dL COVID-19 ([facility]JAL) (Negative) 04/08/22 Range/Units 07:06 WBC (4.8-10.8) X10*3/uL RBC (4.60-5.80) X10*6/uL Immature Gran % (Auto) (0.0-0.4) % Neut % (Auto) (45-73) % Lymph % (Auto) (20-40) % Lymph # (Auto) (1.2-4.9) X10*3/uL Abs Immat Gran (auto) (0.00-0.03) X10*3/uL Absolute Neuts (auto) (2.0-8.3) x10*3/uL VBG pH (7.32-7.43) VBG HCO3 (22-26) mmol/L Chloride (96-108) mmol/L Carbon Dioxide (22-29) mmol/L BUN (9-16) mg/dL POC Glucose 137 H (60-115) mg/dL Random Glucose (60-115) mg/dL C-Reactive Protein (< or = 0.50) mg/dL COVID-19 ([facility]INJAL) (Negative) Short CBC 04/07/22 04/08/22 Range/Units 19:52 06:36 WBC 13.0 H 10.4 (4.8-10.8) X10*3/uL Hgb 16.4 15.5 (14.0-18.0) g/dl Hct 50.9 49.2 (42.0-52.0) % Plt Count 191 216 (160-400) X10*3/uL BMP 04/07/22 04/08/22 19:52 06:36 Sodium 143 141 Potassium 3.7 4.0 Chloride 93 L 93 L Carbon Dioxide 36 H 35 H BUN 17 H 18 H Creatinine 0.78 0.77 Calcium 9.3 9.0 Cardiac Enzymes 04/07/22 Range/Units 19:52 Total Creatine Kinase 94 (38-174) U/L Liver Function 04/07/22 Range/Units 19:52 Total Bilirubin 0.6 (0.0-1.0) mg/dL Direct Bilirubin 0.3 (0.0-0.5) mg/dL AST 18 (5-37) U/L ALT 15 (0-40) U/L Alkaline Phosphatase 86 (39-117) U/L Albumin 3.9 (3.5-5.0) g/dL All other labs normal. Assessment and Plan (1) COVID-19: Status: Acute (2) Gastric dilation: Status: Acute (3) Vomiting: Qualifiers: Nausea presence: with nausea Vomiting type: unspecified Qualified Code(s): R11.2 - Nausea with vomiting, unspecified Status: Acute Plan 76-year-old male patient recently diagnosed with COVID-19 now with increased respiratory distress and hypoxia found to have a dilated stomach with nausea, vomiting, and diarrhea. On examination the patient is somewhat short of breath with a productive cough. Abdomen is obese but nontender to palpation. Nasogastric tube is producing bilious fluid. There is no evidence of a bowel obstruction at this time. There is mild dilation of the duodenum on CT as well as the stomach with no evidence of gastric outlet obstruction. Gastric distention appears to be related to the COVID-19 infection. Agree with nasogastric tube decompression. Will follow the NG tube output. Once the output decreases he will be placed on a clamping trial. Procedures Date of Service Date of Service: 04/08/22
--- NOTE | 2022-04-08 09:17 | PC.NURSE ---
MPt resting quietly in bed. Consumed 75% of breakfast tray. MD at bedside. Pt is now NPO. 900cc of dark black emesis emptied from gastric suctioning public aid eligibility assistant. New container placed for collection. Pt aware of plan of care.
--- NOTE | 2022-04-08 09:59 | PC.NURSE ---
Pt is currently sleeping in bed. Bilateral chest rise noted. Respiration rate 14. O2 Sat 90% on 2L. NG tube in place.
[2022-04-08 11:30] LABS: Glucose, Whole Blood 143 mg/dL (60-115)
--- NOTE | 2022-04-08 11:39 | PC.NURSE ---
Pt is resting in bed, ao x3. O2 Sat 91% on 2L NC. Respiratory rate is 16. 400 cc noted on gastric emptying container. Will continue to monitor.
--- NOTE | 2022-04-08 12:18 | HO.PM.IMPN ---
Subjective Subjective Date of Service: 04/08/22 Interval History: Patient denies abdominal pain, had breakfast this morning denies recurrent nausea vomiting, complaining of chest congestion and cough, denies fever chills, NG in place with significant gastric drainage. Review of Systems [employer] no headache no dizziness CVS no chest pain, no palpitation no urinary urgency, no frequency. Review of Systems: Yes all other systems are reviewed and are negative Physical Exam Vital Signs: Vital Signs: Last Vital Signs Temp 97.5 F 04/08/22 07:54 Pulse 78 04/08/22 07:54 Resp 16 04/08/22 07:54 BP 173/85 H 04/08/22 07:54 Pulse Ox 96 04/08/22 07:54 O2 Del Method 04/08/22 07:54 O2 Flow Rate 6 04/08/22 07:54 BMI result Body Mass Index 48.4 Const: Other: General awake alert, resting comfortably in no acute distress. Neck no JVD. CVS regular rate rhythm, Respiratory lungs clear to auscultation, no respiratory distress, no wheeze, no rhonchi. Gastrointestinal abdomen soft, distended, nontender, bowel sounds audible, no guarding , no rigidity. Extremities no edema. Neuro nonfocal , no tremors Skin no rash Psych appropriate affect Objective Data Active Medications Acetaminophen (Acetaminophen 325 Mg Tablet) 650 mg PO Q6H PRN PRN Reason: Pain, Mild (Pain Scale 1-3) Atorvastatin Calcium (Atorvastatin Calcium 20 Mg Tablet) 20 mg PO DAILY [facility] Last Admin: 04/08/22 08:37 Dose: 20 mg Documented By: EPIFANIO Dexamethasone Sodium Phosphate (Dexamethasone Sod Phosphate 4 Mg/Ml Vial) 6 mg IVPUSH DAILY [facility] Last Admin: 04/08/22 08:37 Dose: 6 mg Documented By: EPIFANIO Dextrose (Dextrose 50 % 25 Gm/50 Ml Syringe) 25 gm IVPUSH Q15M PRN; Protocol PRN Reason: per Hypoglycemia Standing Ord. Enoxaparin Sodium (Enoxaparin Sodium 40 Mg/0.4 Ml Syringe) 40 mg SUBCUT Q24H [facility] Last Admin: 04/08/22 02:40 Dose: 40 mg Documented By: DARON Gabapentin (Gabapentin 600 Mg Tablet) 600 mg PO TID [facility] Last Admin: 04/08/22 08:37 Dose: 600 mg Documented By: EPIFANIO Glucose (Glucose Gel 15 Gm Gel..Gram.) 15 gm PO Q15M PRN; Protocol PRN Reason: per Hypoglycemia Standing Ord. Insulin Human Lispro (Insulin Lispro 100 Unit/Ml 3 Ml Vial) 0 unit SUBCUT QIDACHS [facility]; Protocol Last Admin: 04/08/22 11:30 Dose: Not Given Documented By: EPIFANIO Non-Admin Reason: No Insulin Coverage Melatonin (Melatonin 3 Mg Tablet) 6 mg PO BEDTIME PRN PRN Reason: Insomnia Ondansetron HCl (Ondansetron Hcl 4 Mg/2 Ml Vial) 4 mg IVPUSH Q8H PRN PRN Reason: Nausea and Vomiting Last Admin: 04/08/22 02:40 Dose: 4 mg Documented By: DARON Sertraline HCl (Sertraline Hcl 100 Mg Tablet) 100 mg PO DAILY [facility] Last Admin: 04/08/22 08:37 Dose: 100 mg Documented By: EPIFANIO Sodium Chloride (0.9 % Sodium Chloride Flush 3 Ml Syringe) 3 ml IVFLUSH QSHIFT [facility] Last Admin: 04/08/22 08:37 Dose: 3 ml Documented By: EPIFANIO Tamsulosin HCl (Tamsulosin Hcl 0.4 Mg Capsule) 0.4 mg PO DAILY [facility] Last Admin: 04/08/22 08:37 Dose: 0.4 mg Documented By: EPIFANIO Trazodone HCl (Trazodone Hcl 100 Mg Tablet) 100 mg PO BEDTIME [facility] Last Admin: 04/08/22 02:40 Dose: 100 mg Documented By: DARON Labs CBC & Chem 7: 04/08/22 06:36 04/08/22 06:36 Labs: Laboratory Results - last 24 hr 04/07/22 04/07/22 04/07/22 19:52 19:52 19:52 MCV 87.3 MCH 28.1 MCHC 32.2 RDW 13.7 Plt Count 191 MPV 9.4 Immature Gran % (Auto) 0.5 H Neut % (Auto) 88.3 H Lymph % (Auto) 3.5 L [place] % (Auto) 7.5 Eos % (Auto) 0.0 Baso % (Auto) 0.2 Lymph # (Auto) 0.5 L [place] # (Auto) 1.0 Eos # (Auto) 0.0 Baso # (Auto) 0.0 Abs Immat Gran (auto) 0.06 H Absolute Neuts (auto) 11.5 H Absolute Nucleated RBC 0.000 Nucleated RBC % (auto) 0.0 Smear Tech's Comments VERIFIED PT INR D-Dimer High Sensitivty VBG pH VBG pCO2 VBG pO2 VBG HCO3 VBG O2 Saturation VBG Base Excess Anion Gap 18 Estim Creat Clear Calc 130.8 Estimated GFR > 60 POC Glucose Random Glucose 172 H Lactic Acid Calcium 9.3 Magnesium 1.9 Total Bilirubin 0.6 Direct Bilirubin 0.3 AST 18 ALT 15 Alkaline Phosphatase 86 Lactate Dehydrogenase 192 Total Creatine Kinase 94 C-Reactive Protein 4.34 H B-Natriuretic Peptide 22 Total Protein 7.9 Albumin 3.9 Lipase 24 Procalcitonin COVID-19 ([facility]) COVID-19 [employer] 04/07/22 04/07/22 04/07/22 19:52 19:52 19:52 MCV MCH MCHC RDW Plt Count MPV Immature Gran % (Auto) Neut % (Auto) Lymph % (Auto) [place] % (Auto) Eos % (Auto) Baso % (Auto) Lymph # (Auto) [place] # (Auto) Eos # (Auto) Baso # (Auto) Abs Immat Gran (auto) Absolute Neuts (auto) Absolute Nucleated RBC Nucleated RBC % (auto) Smear Tech's Comments PT 11.8 INR 1.0 D-Dimer High Sensitivty 441 VBG pH VBG pCO2 VBG pO2 VBG HCO3 VBG O2 Saturation VBG Base Excess Anion Gap Estim Creat Clear Calc Estimated GFR POC Glucose Random Glucose Lactic Acid 1.7 Calcium Magnesium Total Bilirubin Direct Bilirubin AST ALT Alkaline Phosphatase Lactate Dehydrogenase Total Creatine Kinase C-Reactive Protein B-Natriuretic Peptide Total Protein Albumin Lipase Procalcitonin COVID-19 ([facility]) Positive A COVID-19 [employer] See Note 04/07/22 04/07/22 04/08/22 19:52 19:59 06:36 MCV 88.6 MCH 27.9 MCHC 31.5 RDW 13.7 Plt Count 216 MPV 9.4 Immature Gran % (Auto) 0.2 Neut % (Auto) 83.5 H Lymph % (Auto) 6.5 L [place] % (Auto) 9.7 Eos % (Auto) 0.0 Baso % (Auto) 0.1 Lymph # (Auto) 0.7 L [place] # (Auto) 1.0 Eos # (Auto) 0.0 Baso # (Auto) 0.0 Abs Immat Gran (auto) 0.02 Absolute Neuts (auto) 8.7 H Absolute Nucleated RBC 0.000 Nucleated RBC % (auto) 0.0 Smear Tech's Comments PT INR D-Dimer High Sensitivty VBG pH 7.46 H VBG pCO2 62 VBG pO2 62 VBG HCO3 44 H VBG O2 Saturation 89.0 VBG Base Excess 16.2 Anion Gap Estim Creat Clear Calc Estimated GFR POC Glucose Random Glucose Lactic Acid Calcium Magnesium Total Bilirubin Direct Bilirubin AST ALT Alkaline Phosphatase Lactate Dehydrogenase Total Creatine Kinase C-Reactive Protein B-Natriuretic Peptide Total Protein Albumin Lipase Procalcitonin 0.05 COVID-19 ([facility]) COVID-19 Clin Com 04/08/22 04/08/22 04/08/22 06:36 07:06 11:27 MCV MCH MCHC RDW Plt Count MPV Immature Gran % (Auto) Neut % (Auto) Lymph % (Auto) [place] % (Auto) Eos % (Auto) Baso % (Auto) Lymph # (Auto) [place] # (Auto) Eos # (Auto) Baso # (Auto) Abs Immat Gran (auto) Absolute Neuts (auto) Absolute Nucleated RBC Nucleated RBC % (auto) Smear Tech's Comments PT INR D-Dimer High Sensitivty VBG pH VBG pCO2 VBG pO2 VBG HCO3 VBG O2 Saturation VBG Base Excess Anion Gap 17 Estim Creat Clear Calc 132.5 Estimated GFR > 60 POC Glucose 137 H 143 H Random Glucose 144 H Lactic Acid Calcium 9.0 Magnesium Total Bilirubin Direct Bilirubin AST ALT Alkaline Phosphatase Lactate Dehydrogenase Total Creatine Kinase C-Reactive Protein B-Natriuretic Peptide Total Protein Albumin Lipase Procalcitonin COVID-19 ([facility]) COVID-19 Clin Com Assessment and Plan (1) COVID-19: Status: Acute (2) Hypoxia: Status: Acute (3) Gastric dilation: Status: Acute Plan 77-year-old male with a past medical history of hypertension, hyperlipidemia, CKD, anemia, alcohol abuse, anxiety, depression, BPH, history of unsteady gait/recurrent falls presented to the hospital with a chief complaint of nausea/vomiting/diarrhea.? Nausea/vomiting/diarrhea: took breakfast no recurrent symptoms of nausea vomiting no Likely viral gastroenteritis diagnosed to have COVID.? CT abdomen showed severely dilated stomach-status post NG tube placement significant bilious output Continue NG tube/NPO/when drainage decreased will clamp NG tube Case discussed with general surgery they agree with above plan Add IV Pepcid for GI prophylaxis Acute hypoxic respiratory failure secondary to COVID-19 infection, chest x-ray shows no consolidation, continue IV Decadron day 08/28 /await ID input, add cough medication, close clinical follow-up CRP 4.34, normal liver enzymes, procalcitonin 0.05, WBC normalized Incidental finding of Denita mesentery on the CT abdomen:? Recommend repeat CT abdomen in 6 months. History of hypertension/hyperlipidemia: Continue amlodipine and Lipitor History of depression: Continue home sertraline History of BPH:? Continue home Flomax History of unsteady gait/recurrent falls: Denies any recent falls.? Reports he uses walker History of alcohol use add ciwa protocol DVT prophylaxis:? Lovenox Code status:? Full code Patient need continued inpatient hospitalization due to nausea vomiting with distended stomach NPO NG tube also on oxygen due to acute hypoxic respiratory failure Quality Stroke Does the patient have a stroke diagnosis?: No VTE Prior VTE?: No VTE Risk Level:: Medical - moderate - high VTE Device Contraindication: Treatment Not Indicated VTE Drug Contraindication: N/A - Med Ordered
--- NOTE | 2022-04-08 14:43 | PC.NURSE ---
Pt ao x 3 in bed. No apparent distress. Chest rises equal, bilateral. Respiration rate is 15. O2 sat 91% on 6L nc. NG tube in place, 800 cc of brown liquid in gastric container. Pt aware of plan of care. Will continue to monitor.
[2022-04-08 14:46] LABS: Glucose, Whole Blood 148 mg/dL (60-115)
--- NOTE | 2022-04-08 15:20 | MHC.CM.PN ---
Addendum entered by Preeti Alegre 04/08/22 16:22: DANYELLE RECEIVED A RETURN CALL FROM FABIOLA WHO REPORTS THE PT HAS BEEN A RESIDENT OF [facility] FOR A COUPLE OF YEARS. HE REPORTS HE LIVES IN [place], BUT DOES VISIT ON A REGULAR BASIS. HE SAYS THE PT DID HAVE A WALKER WHEN HE WAS DOWN BUT IT DID NOT SEEM LIKE HE GOT OUT OF BED MUCH. HE REPORTS SINCE THE PT BECAUSE LTC, THEY HAVE NOT BEEN DOING ANY THERAPY WITH HIM EVEN THROUGH THE HOPE WAS THAT THE PT WOULD LOSE WEIGHT, GAIN STRENGTH, AND RETURN TO THE COMMUNITY. FABIOLA IS HOPEFUL THAT THE PT WOULD SKILL BACK IN TO STR AT THE FACILITY AT [place]. HE SAYS THE PT WILL NOT COMPLAIN TO THE SNF TO GET THE THERAPY OR TREATMENT PLAN, BUT IF IT IS MADE FOR HIM, HE WILL DO IT. PTS MEDICARE RIGHTS WERE REVIEWED, FABIOLA INDICATED UNDERSTANDING AND PROVIDED A CORRECTED ADDRESS FOR THEM TO BE MAILED: [address] [facility] [id number] COPY OF IMM SENT TO [facility] Addendum entered by Preeti Alegre 04/08/22 16:01: [facility] HAS CONFIRMED PT IS A BED HOLD WITH THEM SHE ALSO INDICATED SHE WOULD BE FAXING A COPY OF PTS HCP Addendum entered by Preeti Alegre 04/08/22 16:00: DANYELLE ATTEMPTED TO CALL FABIOLA AGAIN, VM MESSAGE LEFT REQUESTING RETURN CALL Original Note: DANYELLE CALLED PTS SON, FABIOLA [phone] TO OBTAIN HISTORY HOWEVER HE INDICATED HE WAS ON A TRAIN AND WOULD LIKELY LOSE SERVICE ANY MOMENT. HE REQUESTED CM CALL BACK LATER TODAY OR TOMORROW AND STATED HE SHOULD HAVE CONSISTENT SERVICES IN JUST OVER 5 MINUTES. DANYELLE WILL ATTEMPT TO CALL HIM AGAIN TODAY BUT DID INFORM HIM IT MAY BE TOMORROW MORNING DANYELLE ALSO SENT A REFERRAL TO [facility] (LISTED PTS ADDRESS) TO DETERMINE IF PT IS A LTC OR STR CLIENT THERE AND SEE IF THEY HAD A HCP ON FILE
--- NOTE | 2022-04-08 16:24 | PC.NURSE ---
pt axox3, very poor bed mobility d/t body habitus, skin p[wd, nsr on monitor, ng tub ein place with significant brown output (at 900ml in vaccutainer). pt has copious amounts of thck yellow sputumn, cleansed of incontinent urine and repositioned, LS rattling loose rhonchi with moderate air movement, no skin breakdown on buttocks but sml areas of blanchable redness noted on coccyx, aware of npo status and plan for admission.
[2022-04-08 17:35] LABS: Glucose, Whole Blood 145 mg/dL (60-115)
--- NOTE | 2022-04-08 18:38 | PC.NURSE ---
Pts nc displaced, o2 sat 78%. NC and pt repostitioned. O2 sat 91% on 6L. Cough with yellow phlegm present. Will continue to monitor.
[2022-04-08] MEDS: HYDROmorphone HCl 0.5 MG/0.5 ML SYRINGE IVPUSH (22:04)
[2022-04-08] MEDS: diphenhydrAMINE HCL 50 MG/ML VIAL 25 MG IVPUSH (22:05)
--- NOTE | 2022-04-08 22:06 | PC.NURSE ---
Pt incontinent of urine, cleansed, moved to hospital bed, barrier cream applied, legs elevated. continues to have NG tube output (dark brown) and coughing up copious amounts of loose green sputumn. all po meds held per MD Figueroa. Pt is aware of plan of care, awaits room upstairs, is axox3 and able to follow commands.
[2022-04-08 23:58] LABS: Glucose, Whole Blood 154 mg/dL (60-115)
[2022-04-09] VITALS (8 sets, daily range): BP systolic 138–173; BP diastolic 58–80; PULSE 59–73; RESP 12–20; TEMP 36.1–37.1; O2SAT 91–99
[2022-04-09] MEDS: Enoxaparin Sodium 40 MG/0.4 ML SYRINGE SUBCUT (01:29)
[2022-04-09 07:37] LABS: Hematocrit 49.5 % (42.0-52.0); Hemoglobin 15.7 g/dl (14.0-18.0); Mean Corpuscular HGB Conc 31.7 g/dl (31.0-36.0); Mean Corpuscular Hemoglobin 28.5 pg (27.0-33.0); Mean Corpuscular Volume 89.8 fL (80.0-98.0); Mean Platelet Volume 9.4 fL (9.4-12.4); Platelet Count 209 X10*3/uL (160-400); Red Blood Count 5.51 X10*6/uL (4.60-5.80); Red Cell Distribution Width 13.6 % (11.0-16.0); White Blood Count 9.1 X10*3/uL (4.8-10.8)
[2022-04-09 07:42] LABS: Glucose, Whole Blood 139 mg/dL (60-115)
[2022-04-09 08:06] LABS: Anion Gap 17 (12-20); Blood Urea Nitrogen 30 mg/dL (9-16); Calcium 9.4 mg/dL (8.4-10.2); Carbon Dioxide 43 mmol/L (22-29); Chloride 90 mmol/L (96-108); Creatinine Clr Calc Pharmacy 134.3; Estimated Glomerular Filt Rate > 60; Glucose Random 142 mg/dL (60-115); Potassium 3.4 mmol/L (3.3-5.1); Sodium 147 mmol/L (135-145)
[2022-04-09] MEDS: Dextrose 5 % and 0.45 % NaCl 1,000 ML 100 ML IVCONT ×2 (09:43→19:53)
[2022-04-09] MEDS: 0.9 % Sodium Chloride Flush 3 ML SYRINGE IVFLUSH ×2 (09:44→16:00)
[2022-04-09] MEDS: Famotidine/PF 20 MG/2 ML VIAL IVPUSH (09:44)
[2022-04-09] MEDS: dexAMETHasone sod phosphate 4 MG/ML VIAL 6 MG IVPUSH (09:44)
[2022-04-09] MEDS: Gabapentin 600 MG TABLET PO ×3 (09:44→21:58)
[2022-04-09] MEDS: Sertraline HCL 100 MG TABLET PO (09:45)
[2022-04-09] MEDS: Acetaminophen 325 MG TABLET 650 MG PO (09:45)
[2022-04-09] MEDS: Tamsulosin HCL 0.4 MG CAPSULE PO (09:45)
[2022-04-09] MEDS: Atorvastatin Calcium 20 MG TABLET PO (09:45)
[2022-04-09] MEDS: amLODIPine Besylate 2.5 MG TABLET PO (09:45)
[2022-04-09] MEDS: oxyCODONE HCl Immed Release 5 MG TABLET PO ×2 (09:46→22:02)
[2022-04-09 11:36] LABS: Glucose, Whole Blood 189 mg/dL (60-115)
[2022-04-09] MEDS: Insulin Lispro 100 UNIT/ML 3 ML VIAL SUBCUT ×3 (12:28→22:02)
--- NOTE | 2022-04-09 12:59 | P.PNIM_ITS ---
Subjective Subjective Date of Service: 04/09/22 Interval History: Resting comfortably denies abdominal pain, denies nausea, no diarrhea denies fever chills no other acute issues overnight, 1800 mL output in 24 hours. Review of Systems DATA SOLUTIONS ARCHITECT no headache no dizziness CVS no chest pain, no palpitation Respiratory no cough, no shortness of breath Review of Systems: Yes all other systems are reviewed and are negative Physical Exam Vital Signs: Vital Signs: Last Vital Signs Temp 98.1 F 04/09/22 12:28 Pulse 73 04/09/22 12:28 Resp 18 04/09/22 12:28 BP 140/74 H 04/09/22 12:28 Pulse Ox 96 04/09/22 12:28 O2 Del Method 04/09/22 12:28 O2 Flow Rate 0.5 04/09/22 12:28 BMI result Body Mass Index 48.4 Const: Other: General awake aler t, resting comfort ably in no acute d istress.? Neck no JVD. CVS? regular rate rhythm, Respi ratory lungs clear to auscultation, no respiratory dis tress, no wheeze, no rhonchi. Gastro intestinal abdomen soft, distended, nontender, bowel s ounds audible, no guarding , no rigi dity. Extremities no edema. Neuro no nfocal , no tremor s Skin no rash Psy ch appropriate aff ect Objective Data Active Medications Acetaminophen (Acetaminophen 325 Mg Tablet) 650 mg PO Q6H PRN PRN Reason: Pain, Mild (Pain Scale 1-3) Last Admin: 04/09/22 09:45 Dose: 650 mg Documented By: BEBO Albuterol Sulfate (Albuterol Sulfate 90 Mcg 8 Gm Inhaler) 2 puff INHALE Q4H PRN PRN Reason: Wheezing Amlodipine Besylate (Amlodipine Besylate 2.5 Mg Tablet) 2.5 mg PO DAILY [facility]; Protocol Last Admin: 04/09/22 09:45 Dose: 2.5 mg Documented By: BRYCEEMA Atorvastatin Calcium (Atorvastatin Calcium 20 Mg Tablet) 20 mg PO DAILY [facility] Last Admin: 04/09/22 09:45 Dose: 20 mg Documented By: BRYCEEMA Dexamethasone Sodium Phosphate (Dexamethasone Sod Phosphate 4 Mg/Ml Vial) 6 mg IVPUSH DAILY [facility] Last Admin: 04/09/22 09:44 Dose: 6 mg Documented By: BEBO Dextrose (Dextrose 50 % 25 Gm/50 Ml Syringe) 25 gm IVPUSH Q15M PRN; Protocol PRN Reason: per Hypoglycemia Standing Ord. Enoxaparin Sodium (Enoxaparin Sodium 40 Mg/0.4 Ml Syringe) 40 mg SUBCUT Q24H [facility] Last Admin: 04/09/22 01:29 Dose: 40 mg Documented By: SHARON Famotidine (Famotidine/Pf 20 Mg/2 Ml Vial) 20 mg IVPUSH DAILY [facility] Last Admin: 04/09/22 09:44 Dose: 20 mg Documented By: BEBO Gabapentin (Gabapentin 600 Mg Tablet) 600 mg PO TID [facility] Last Admin: 04/09/22 09:44 Dose: 600 mg Documented By: BEBO Glucose (Glucose Gel 15 Gm Gel..Gram.) 15 gm PO Q15M PRN; Protocol PRN Reason: per Hypoglycemia Standing Ord. Hydromorphone HCl (Hydromorphone Hcl 0.5 Mg/0.5 Ml Syringe) 0.5 mg IVPUSH Q4H PRN; Protocol PRN Reason: Breakthrough Pain Last Admin: 04/08/22 22:04 Dose: 0.5 mg Documented By: LOUISA Dextrose/Sodium Chloride (D51/2ns) 1,000 mls @ 100 mls/hr IVCONT .Q10H [facility] Last Admin: 04/09/22 09:43 Dose: 100 mls/hr Documented By: BEBO Insulin Human Lispro (Insulin Lispro 100 Unit/Ml 3 Ml Vial) 0 unit SUBCUT QIDACHS [facility]; Protocol Last Admin: 04/09/22 12:28 Dose: 2 unit Documented By: BEBO Melatonin (Melatonin 3 Mg Tablet) 6 mg PO BEDTIME PRN PRN Reason: Insomnia Ondansetron HCl (Ondansetron Hcl 4 Mg/2 Ml Vial) 4 mg IVPUSH Q8H PRN PRN Reason: Nausea and Vomiting Last Admin: 04/08/22 02:40 Dose: 4 mg Documented By: DARON Oxycodone HCl (Oxycodone Hcl Immed Release 5 Mg Tablet) 5 mg PO BID PRN PRN Reason: Pain, Moderate (Pain Scale 4-6 Last Admin: 04/09/22 09:46 Dose: 5 mg Documented By: BEBO Sertraline HCl (Sertraline Hcl 100 Mg Tablet) 100 mg PO DAILY [facility] Last Admin: 04/09/22 09:45 Dose: 100 mg Documented By: BRYCEEMA Sodium Chloride (0.9 % Sodium Chloride Flush 3 Ml Syringe) 3 ml IVFLUSH QSHIFT [facility] Last Admin: 04/09/22 09:44 Dose: 3 ml Documented By: COTEMA Tamsulosin HCl (Tamsulosin Hcl 0.4 Mg Capsule) 0.4 mg PO DAILY [facility] Last Admin: 04/09/22 09:45 Dose: 0.4 mg Documented By: COTEMA Trazodone HCl (Trazodone Hcl 100 Mg Tablet) 100 mg PO BEDTIME [facility] Last Admin: 04/08/22 21:25 Dose: Not Given Documented By: LOUISA Non-Admin Reason: NPO Labs CBC & Chem 7: 04/09/22 07:22 04/09/22 07:22 Labs: Laboratory Results - last 24 hr 04/08/22 04/08/22 04/08/22 14:38 17:32 22:31 MCV MCH MCHC RDW Plt Count MPV Absolute Nucleated RBC Nucleated RBC % (auto) Anion Gap Estim Creat Clear Calc Estimated GFR POC Glucose 148 H 145 H 154 H Random Glucose Calcium 04/09/22 04/09/22 04/09/22 07:22 07:22 07:38 MCV 89.8 MCH 28.5 MCHC 31.7 RDW 13.6 Plt Count 209 MPV 9.4 Absolute Nucleated RBC 0.000 Nucleated RBC % (auto) 0.0 Anion Gap 17 Estim Creat Clear Calc 134.3 Estimated GFR > 60 POC Glucose 139 H Random Glucose 142 H Calcium 9.4 04/09/22 11:29 MCV MCH MCHC RDW Plt Count MPV Absolute Nucleated RBC Nucleated RBC % (auto) Anion Gap Estim Creat Clear Calc Estimated GFR POC Glucose 189 H Random Glucose Calcium Microbiology Microbiology Results: Microbiology 04/07/22 20:29 Blood Culture - Preliminary Blood - Venous No growth after 24 hours. 04/07/22 19:52 Blood Culture - Preliminary Blood - Venous No growth after 24 hours. Assessment and Plan (1) COVID-19: Status: Acute (2) Hypoxia: Status: Acute (3) Gastric dilation: Status: Acute Plan 77-year-old male with a past medical history of hypertension, hyperlipidemia, CKD, anemia, alcohol abuse, anxiety, depression, BPH, history of unsteady gait/recurrent falls presented to the hospital with a chief complaint of nausea/vomiting/diarrhea.? Nausea/vomiting/diarrhea: Denies nausea, no vomiting, no abdominal pain Symptoms were likely related to viral gastroenteritis diagnosed to have COVID.? CT abdomen showed severely dilated stomach-status post NG tube placement , since patient asymptomatic, and NG output improving will clamp NG and follow Continue IV Pepcid for GI prophylaxis/ IV fluids Acute hypoxic respiratory failure secondary to COVID-19 infection, chest x-ray shows no consolidation, continue IV Decadron day 2 /hypoxia improving wean oxygen continue supportive care, cough medication, close clinical follow-up, CRP 4.34, normal liver enzymes, procalcitonin 0.05, WBC normalized Morbid obesity recommend low-calorie diet exercise likely contributing to hyperglycemia and high likelihood of diabetes/EDY Hyperglycemia likely related to Decadron will check hemoglobin A1c Metabolic alkalosis ABG showed elevated pCO2, with stable pH, patient likely has underlying obstructive sleep apnea recommend outpatient pulmonology follow-up, patient is a former smoker Incidental finding of Denita mesentery on the CT abdomen:? Recommend repeat CT abdomen in 6 months. History of hypertension/hyperlipidemia: Continue amlodipine and Lipitor History of depression: Continue home sertraline History of BPH:? Continue home Flomax History of unsteady gait/recurrent falls: Denies any recent falls.? Reports he uses walker History of alcohol use add ciwa protocol DVT prophylaxis:? Lovenox Code status:? Full code Patient need continued inpatient hospitalization due to distended stomach NPO NG tube also on oxygen due to acute hypoxic respiratory failure. Quality Stroke Does the patient have a stroke diagnosis?: No VTE Prior VTE?: No VTE Risk Level:: Medical - moderate - high VTE Device Contraindication: Treatment Not Indicated VTE Drug Contraindication: N/A - Med Ordered
--- NOTE | 2022-04-09 13:27 | PC.NURSE ---
Per verbal request of Dr. Fernandez pts NG tube to left nare was removed. Pt denies pain/discomfort, denies nausea at this time. pt diet to be changed to clear liquids per provider
--- NOTE | 2022-04-09 15:41 | W.PM.IDCN ---
History of Present Illness Data of Consult Service Date: 04/09/22 Requesting physician: Ofe Fernandez Primary Care Provider: Stan Almanzar MD HPI Reason for consult: hypoxia,COVID He presents with weakness and vomiting. His COVID test is positive. He has oxygen saturation 88% on RA. He has anemia and alcohol use disorder. Review of Systems Review of Systems: Yes all other systems are reviewed and are negative [facility] Past Medical History Medical History Alcoholism Anemia CKD (chronic kidney disease) HTN (hypertension) Unsteady gait Family History Family history: reviewed and not pertinent Social History Social History Patient Tobacco Use Status: Never used Tobacco Advance Directives: No Advance Directives Information Provided: No Current occupational status: retired [employer] Allergies Allergy/AdvReac Type Severity Reaction Status Date / Time No Known Allergies Allergy Verified 04/07/22 18:25 Active Medications: Current Medications Acetaminophen (Acetaminophen 325 Mg Tablet) 650 mg PO Q6H PRN PRN Reason: Pain, Mild (Pain Scale 1-3) Last Admin: 04/09/22 09:45 Dose: 650 mg Albuterol Sulfate (Albuterol Sulfate 90 Mcg 8 Gm Inhaler) 2 puff INHALE Q4H PRN PRN Reason: Wheezing Amlodipine Besylate (Amlodipine Besylate 2.5 Mg Tablet) 2.5 mg PO DAILY [facility]; Protocol Last Admin: 04/09/22 09:45 Dose: 2.5 mg Atorvastatin Calcium (Atorvastatin Calcium 20 Mg Tablet) 20 mg PO DAILY [facility] Last Admin: 04/09/22 09:45 Dose: 20 mg Dexamethasone Sodium Phosphate (Dexamethasone Sod Phosphate 4 Mg/Ml Vial) 6 mg IVPUSH DAILY [facility] Last Admin: 04/09/22 09:44 Dose: 6 mg Dextrose (Dextrose 50 % 25 Gm/50 Ml Syringe) 25 gm IVPUSH Q15M PRN; Protocol PRN Reason: per Hypoglycemia Standing Ord. Enoxaparin Sodium (Enoxaparin Sodium 40 Mg/0.4 Ml Syringe) 40 mg SUBCUT Q24H [facility] Last Admin: 04/09/22 01:29 Dose: 40 mg Famotidine (Famotidine/Pf 20 Mg/2 Ml Vial) 20 mg IVPUSH DAILY [facility] Last Admin: 04/09/22 09:44 Dose: 20 mg Gabapentin (Gabapentin 600 Mg Tablet) 600 mg PO TID [facility] Last Admin: 04/09/22 09:44 Dose: 600 mg Glucose (Glucose Gel 15 Gm Gel..Gram.) 15 gm PO Q15M PRN; Protocol PRN Reason: per Hypoglycemia Standing Ord. Hydromorphone HCl (Hydromorphone Hcl 0.5 Mg/0.5 Ml Syringe) 0.5 mg IVPUSH Q4H PRN; Protocol PRN Reason: Breakthrough Pain Last Admin: 04/08/22 22:04 Dose: 0.5 mg Dextrose/Sodium Chloride (D51/2ns) 1,000 mls @ 100 mls/hr IVCONT .Q10H [facility] Last Admin: 04/09/22 09:43 Dose: 100 mls/hr Insulin Human Lispro (Insulin Lispro 100 Unit/Ml 3 Ml Vial) 0 unit SUBCUT QIDACHS [facility]; Protocol Last Admin: 04/09/22 12:28 Dose: 2 unit Melatonin (Melatonin 3 Mg Tablet) 6 mg PO BEDTIME PRN PRN Reason: Insomnia Ondansetron HCl (Ondansetron Hcl 4 Mg/2 Ml Vial) 4 mg IVPUSH Q8H PRN PRN Reason: Nausea and Vomiting Last Admin: 04/08/22 02:40 Dose: 4 mg Oxycodone HCl (Oxycodone Hcl Immed Release 5 Mg Tablet) 5 mg PO BID PRN PRN Reason: Pain, Moderate (Pain Scale 4-6 Last Admin: 04/09/22 09:46 Dose: 5 mg Sertraline HCl (Sertraline Hcl 100 Mg Tablet) 100 mg PO DAILY [facility] Last Admin: 04/09/22 09:45 Dose: 100 mg Sodium Chloride (0.9 % Sodium Chloride Flush 3 Ml Syringe) 3 ml IVFLUSH QSHIFT [facility] Last Admin: 04/09/22 09:44 Dose: 3 ml Tamsulosin HCl (Tamsulosin Hcl 0.4 Mg Capsule) 0.4 mg PO DAILY [facility] Last Admin: 04/09/22 09:45 Dose: 0.4 mg Trazodone HCl (Trazodone Hcl 100 Mg Tablet) 100 mg PO BEDTIME [facility] Last Admin: 04/08/22 21:25 Dose: Not Given Home Medications Medication Instructions Recorded Confirmed Last Taken Type acamprosate 333 mg tablet,delayed 2 tab PO BID 04/08/22 04/08/22 04/07/22 History release albuterol sulfate 90 mcg/actuation 2 puff inhalation Q4H PRN Wheezing 04/08/22 04/08/22 Unknown History aerosol inhaler (ProAir HFA) amlodipine 2.5 mg tablet 1 tab PO DAILY 04/08/22 04/08/22 04/07/22 History ammonium lactate 12 % lotion 1 applic topical BID 04/08/22 04/08/22 04/06/22 History aspirin 81 mg tablet,delayed 81 mg PO DAILY 04/08/22 04/08/22 04/07/22 History release atorvastatin 20 mg tablet 1 tab PO DAILY 04/08/22 04/08/22 04/07/22 History cholecalciferol (vitamin D3) 25 25 mcg PO DAILY 04/08/22 04/08/22 04/07/22 History mcg (1,000 unit) tablet diclofenac sodium 1 % topical gel 1 g topical Q6H PRN Pain 04/08/22 04/08/22 Unknown History gabapentin 600 mg tablet 1 tab PO TID 04/08/22 04/08/22 04/07/22 History loperamide 2 mg capsule 2 mg PO Q8H PRN Diarrhea 04/08/22 04/08/22 04/07/22 History ondansetron HCl 4 mg tablet 1 tab PO Q6H PRN Nausea And 04/08/22 04/08/22 04/07/22 History Vomiting oxycodone 5 mg tablet 1 tab PO BID PRN Pain 04/08/22 04/08/22 04/06/22 History polyvinyl alcohol 1.4 % eye drops 1 drp ophthalmic (eye) BID 04/08/22 04/08/22 04/07/22 History (Artificial Tears (polyvinyl alcohol)) sertraline 100 mg tablet 1 tab PO DAILY 04/08/22 04/08/22 04/07/22 History tamsulosin 0.4 mg capsule 1 cap PO BEDTIME 04/08/22 04/08/22 04/06/22 History thiamine HCl (vitamin B1) 100 mg 100 mg PO DAILY 04/08/22 04/08/22 04/07/22 History tablet trazodone 100 mg tablet 1 tab PO BEDTIME 04/08/22 04/08/22 04/07/22 History Physical Exam Vital Signs: Vital Signs: Last Vital Signs Temp 98.1 F 04/09/22 12:28 Pulse 73 04/09/22 12:28 Resp 18 04/09/22 12:28 BP 140/74 H 04/09/22 12:28 Pulse Ox 96 04/09/22 12:28 O2 Del Method 04/09/22 12:28 O2 Flow Rate 0.5 04/09/22 12:28 BMI result Body Mass Index 48.4 Const: General: cooperative HEENT: Head: Yes normal to inspection Face and sinus: Yes normal facial exam Mouth: Normal oral and palatal mucosa present Teeth and gingiva: dentition normal Eyes: General: appearance normal, both eyes and all related structures Pupils: Equal, round and reactive pupils present Resp: Effort & Inspection: normal respiratory effort Cardio: Rate: regular rate Rhythm: regular rhythm GI: Palpation (GI): Soft to palpation and nontender : General: Yes no CVA tenderness Back/Spine/Pelvis: Back: no CVA tenderness Skin: General skin exam: no rashes or lesions noted Neuro: General: moves all extremities Cranial nerves: Yes Equal, round and reactive pupils present Extrem: General: Yes normal to inspection Psych: Appearance: grossly normal Results Labs CBC & Chem 7: 04/09/22 07:22 04/09/22 07:22 Labs: Short CBC 04/09/22 Range/Units 07:22 WBC 9.1 (4.8-10.8) X10*3/uL Hgb 15.7 (14.0-18.0) g/dl Hct 49.5 (42.0-52.0) % Plt Count 209 (160-400) X10*3/uL BMP 04/09/22 07:22 Sodium 147 H Potassium 3.4 Chloride 90 L Carbon Dioxide 43 H* D BUN 30 H D Creatinine 0.76 Calcium 9.4 Microbiology Microbiology Results: Microbiology 04/07/22 20:29 Blood - Venous Blood Culture - Preliminary No growth after 24 hours. 04/07/22 19:52 Blood - Venous Blood Culture - Preliminary No growth after 24 hours. Assessment and Plan (1) COVID-19: Status: Acute He has been vaccinated and has hypoxia. He has duration unknown COVID but probable duration one week or more He has no signs of bacterial pneumonia (2) Hypoxia: Status: Acute Plan Would continue Dexamethasone for 10 days,po when po well. No Remdesivir ,not helpful since symptoms present since last week.
--- NOTE | 2022-04-09 16:40 | PC.NURSE ---
THIS CORE STACKER ASSUMED CARE OF THIS PT AT 1500, PT RESTING QUIETLY AT TIME OF ASSUMING CARE. PT DENIES CHEST PAIN, NO N/V/D. LS RHONCHI, AIR MOVEMENT MODERATE. 02 SAT 95% ON 4L N/C. IV PATENT, D5 1/2NS RUNNING AT 100 ML/HR. MEDS GIVEN DOCUMENTED. NO COMPLAINTS.
[2022-04-09 19:10] LABS: Glucose, Whole Blood 190 mg/dL (60-115)
--- NOTE | 2022-04-09 19:58 | PC.NURSE ---
report obtained from keron, patient a&ox3, denies nausea/pain, vss, school bus monitor intact, ivf running per order, call cruz within reach, will continue to monitor
--- NOTE | 2022-04-09 21:03 | PC.NURSE ---
report given, pt to be transported to floor shortly
[2022-04-09 21:38] LABS: Glucose, Whole Blood 166 mg/dL (60-115)
[2022-04-09] MEDS: traZODone HCL 100 MG TABLET PO (21:58)
[2022-04-10] MEDS: Enoxaparin Sodium 40 MG/0.4 ML SYRINGE SUBCUT (01:04)
[2022-04-10] MEDS: 0.9 % Sodium Chloride Flush 3 ML SYRINGE IVFLUSH ×3 (01:04→15:59)
[2022-04-10 07:24] VITALS: BP 150/70; PULSE 61; RESP 20; TEMP 36.2; O2SAT 97
[2022-04-10 07:26] LABS: Glucose, Whole Blood 109 mg/dL (60-115)
[2022-04-10] MEDS: Atorvastatin Calcium 20 MG TABLET PO (08:01)
[2022-04-10] MEDS: Famotidine/PF 20 MG/2 ML VIAL IVPUSH (08:01)
[2022-04-10] MEDS: dexAMETHasone sod phosphate 4 MG/ML VIAL 6 MG IVPUSH (08:01)
[2022-04-10] MEDS: Tamsulosin HCL 0.4 MG CAPSULE PO (08:02)
[2022-04-10] MEDS: amLODIPine Besylate 2.5 MG TABLET PO (08:02)
[2022-04-10] MEDS: Sertraline HCL 100 MG TABLET PO (08:02)
[2022-04-10] MEDS: Gabapentin 600 MG TABLET PO ×3 (08:02→20:09)
[2022-04-10] MEDS: oxyCODONE HCl Immed Release 5 MG TABLET PO ×2 (08:05→20:14)
[2022-04-10] MEDS: Dextrose 5 % and 0.45 % NaCl 1,000 ML 100 ML IVCONT (08:07)
[2022-04-10 11:05] VITALS: BP 113/61; PULSE 70; RESP 20; TEMP 36.3; O2SAT 93
[2022-04-10 11:15] LABS: Glucose, Whole Blood 190 mg/dL (60-115)
[2022-04-10 11:24] LABS: Anion Gap 14 (12-20); Blood Urea Nitrogen 23 mg/dL (9-16); Calcium 8.8 mg/dL (8.4-10.2); Carbon Dioxide 38 mmol/L (22-29); Chloride 88 mmol/L (96-108); Creatinine Clr Calc Pharmacy 141.7; Estimated Glomerular Filt Rate > 60; Glucose Random 197 mg/dL (60-115); Potassium 3.7 mmol/L (3.3-5.1); Sodium 136 mmol/L (135-145)
[2022-04-10] MEDS: Insulin Lispro 100 UNIT/ML 3 ML VIAL SUBCUT ×2 (12:29→15:58)
[2022-04-10 15:15] VITALS: BP 178/80; PULSE 72; RESP 18; TEMP 37.3; O2SAT 93
--- NOTE | 2022-04-10 15:18 | HO.PM.IMPN ---
Subjective Subjective Date of Service: 04/10/22 Interval History: Feeling better this morning, complaining of chest congestion, dry cough, no fevers no chills, has been on oxygen on and off in the past but not on home O2 not on CPAP, tolerating diet no abdominal pain, no nausea, no vomiting, no abdominal pain. Review of Systems [employer] no headache no dizziness CVS no chest pain, no palpitation Respiratory cough, no shortness of breath Review of Systems: Yes all other systems are reviewed and are negative Physical Exam Vital Signs: Vital Signs: Last Vital Signs Temp 99.2 F 04/10/22 15:15 Pulse 72 04/10/22 15:15 Resp 18 04/10/22 15:15 BP 178/80 H 04/10/22 15:15 Pulse Ox 93 04/10/22 15:15 O2 Del Method 04/10/22 15:15 O2 Flow Rate 2 04/10/22 15:15 BMI result Body Mass Index 48.4 Const: Other: General awake aler t, resting comfort ably in no acute d istress.? Neck no JVD. CVS? regular rate rhythm, Respi ratory lungs coars e bs, no respirato ry distress, no wh eeze, no rhonchi. Gastrointestinal a bdomen soft, diste nded, nontender, b owel sounds audibl e, no guarding , n o rigidity. Extrem ities no pitting e luis fernando. Neuro nonfoc al , no tremors Sk in no rash Psych a ppropriate affect Objective Data Active Medications Acetaminophen (Acetaminophen 325 Mg Tablet) 650 mg PO Q6H PRN PRN Reason: Pain, Mild (Pain Scale 1-3) Last Admin: 04/09/22 09:45 Dose: 650 mg Documented By: BEBO Albuterol Sulfate (Albuterol Sulfate 90 Mcg 8 Gm Inhaler) 2 puff INHALE Q4H PRN PRN Reason: Wheezing Amlodipine Besylate (Amlodipine Besylate 2.5 Mg Tablet) 2.5 mg PO DAILY [facility]; Protocol Last Admin: 04/10/22 08:02 Dose: 2.5 mg Documented By: CHAPIS Atorvastatin Calcium (Atorvastatin Calcium 20 Mg Tablet) 20 mg PO DAILY [facility] Last Admin: 04/10/22 08:01 Dose: 20 mg Documented By: CHAPIS Dexamethasone Sodium Phosphate (Dexamethasone Sod Phosphate 4 Mg/Ml Vial) 6 mg IVPUSH DAILY [facility] Last Admin: 04/10/22 08:01 Dose: 6 mg Documented By: HCAPIS Dextrose (Dextrose 50 % 25 Gm/50 Ml Syringe) 25 gm IVPUSH Q15M PRN; Protocol PRN Reason: per Hypoglycemia Standing Ord. Enoxaparin Sodium (Enoxaparin Sodium 40 Mg/0.4 Ml Syringe) 40 mg SUBCUT Q24H [facility] Last Admin: 04/10/22 01:04 Dose: 40 mg Documented By: MEGAN Famotidine (Famotidine/Pf 20 Mg/2 Ml Vial) 20 mg IVPUSH DAILY [facility] Last Admin: 04/10/22 08:01 Dose: 20 mg Documented By: CHAPIS Gabapentin (Gabapentin 600 Mg Tablet) 600 mg PO TID [facility] Last Admin: 04/10/22 08:02 Dose: 600 mg Documented By: CHAPIS Glucose (Glucose Gel 15 Gm Gel..Gram.) 15 gm PO Q15M PRN; Protocol PRN Reason: per Hypoglycemia Standing Ord. Hydromorphone HCl (Hydromorphone Hcl 0.5 Mg/0.5 Ml Syringe) 0.5 mg IVPUSH Q4H PRN; Protocol PRN Reason: Breakthrough Pain Last Admin: 04/08/22 22:04 Dose: 0.5 mg Documented By: LOUISA Insulin Human Lispro (Insulin Lispro 100 Unit/Ml 3 Ml Vial) 0 unit SUBCUT QIDACHS [facility]; Protocol Last Admin: 04/10/22 12:29 Dose: 2 unit Documented By: CHAPIS Melatonin (Melatonin 3 Mg Tablet) 6 mg PO BEDTIME PRN PRN Reason: Insomnia Ondansetron HCl (Ondansetron Hcl 4 Mg/2 Ml Vial) 4 mg IVPUSH Q8H PRN PRN Reason: Nausea and Vomiting Last Admin: 04/08/22 02:40 Dose: 4 mg Documented By: DARON Oxycodone HCl (Oxycodone Hcl Immed Release 5 Mg Tablet) 5 mg PO BID PRN PRN Reason: Pain, Moderate (Pain Scale 4-6 Last Admin: 04/10/22 08:05 Dose: 5 mg Documented By: CHAPIS Sertraline HCl (Sertraline Hcl 100 Mg Tablet) 100 mg PO DAILY [facility] Last Admin: 04/10/22 08:02 Dose: 100 mg Documented By: CHAPIS Sodium Chloride (0.9 % Sodium Chloride Flush 3 Ml Syringe) 3 ml IVFLUSH QSHIFT [facility] Last Admin: 04/10/22 08:01 Dose: 3 ml Documented By: CHAPIS Tamsulosin HCl (Tamsulosin Hcl 0.4 Mg Capsule) 0.4 mg PO DAILY [facility] Last Admin: 04/10/22 08:02 Dose: 0.4 mg Documented By: CHAPIS Trazodone HCl (Trazodone Hcl 100 Mg Tablet) 100 mg PO BEDTIME [facility] Last Admin: 04/09/22 21:58 Dose: 100 mg Documented By: SPENSER Labs CBC & Chem 7: 04/09/22 07:22 04/10/22 10:34 Labs: Laboratory Results - last 24 hr 04/09/22 04/09/22 04/10/22 18:32 21:35 07:22 Anion Gap Estim Creat Clear Calc Estimated GFR POC Glucose 190 H 166 H 109 Random Glucose Calcium 04/10/22 04/10/22 10:34 11:07 Anion Gap 14 Estim Creat Clear Calc 141.7 Estimated GFR > 60 POC Glucose 190 H Random Glucose 197 H D Calcium 8.8 D Microbiology Microbiology Results: Microbiology 04/07/22 20:29 Blood Culture - Preliminary Blood - Venous No growth after 48 hours. 04/07/22 19:52 Blood Culture - Preliminary Blood - Venous No growth after 48 hours. Assessment and Plan (1) COVID-19: Status: Acute (2) Hypoxia: Status: Acute (3) Gastric dilation: Status: Acute Plan 77-year-old male with a past medical history of hypertension, hyperlipidemia, CKD, anemia, alcohol abuse, anxiety, depression, BPH, history of unsteady gait/recurrent falls presented to the hospital with a chief complaint of nausea/vomiting/diarrhea.? Nausea/vomiting/diarrhea: All symptoms resolved Denies nausea, no vomiting, no abdominal pain Tolerated clear liquids will advance to diabetic diet Symptoms were likely related to viral gastroenteritis diagnosed to have COVID.? CT abdomen showed severely dilated stomach likely related to viral infection/gastroparesis-status post NG tube placement DC IV fluid Acute hypoxic respiratory failure secondary to COVID-19 infection, CT chest showed no PE, chest x-ray shows no consolidation, continue IV Decadron day 3/10 / wean oxygen continue supportive care, cough medication, close clinical follow-up, CRP 4.34, normal liver enzymes, procalcitonin 0.05, WBC normalized, seen by ID not a candidate for remdesivir since symptoms present for 1 week Morbid obesity recommend low-calorie diet exercise likely contributing to hyperglycemia and high likelihood of diabetes/EDY Diabetes mellitus Hyperglycemia likely related to Decadron will check hemoglobin A1c, continue insulin sliding scale blood sugar less than 200 Metabolic alkalosis ABG showed elevated pCO2, with stable pH, patient likely has underlying obstructive sleep apnea recommend outpatient pulmonology follow-up, patient is a former smoker Incidental finding of Denita mesentery on the CT abdomen:? Recommend repeat CT abdomen in 6 months. History of hypertension/hyperlipidemia: Continue amlodipine and Lipitor History of depression: Continue home sertraline History of BPH:? Continue home Flomax History of unsteady gait/recurrent falls: Denies any recent falls.? Reports he uses walker History of alcohol use add ciwa protocol DVT prophylaxis:? Lovenox Code status:? Full code Patient need continued inpatient hospitalization due to acute hypoxic respiratory failure, requiring oxygen support, distended abdomen diet being advanced. Quality Stroke Does the patient have a stroke diagnosis?: No VTE Prior VTE?: No VTE Risk Level:: Medical - moderate - high VTE Device Contraindication: Treatment Not Indicated VTE Drug Contraindication: N/A - Med Ordered
[2022-04-10 15:47] LABS: Glucose, Whole Blood 201 mg/dL (60-115)
[2022-04-10] MEDS: guaiFENesin DM 200/20/10 ML 10 ML SYRUP PO ×2 (15:58→20:09)
[2022-04-10 19:09] VITALS: BP 135/63; PULSE 66; RESP 18; TEMP 37.3; O2SAT 90
[2022-04-10 19:34] LABS: Glucose, Whole Blood 147 mg/dL (60-115)
[2022-04-10] MEDS: traZODone HCL 100 MG TABLET PO (20:09)
[2022-04-10 23:40] VITALS: BP 159/74; PULSE 61; RESP 18; TEMP 36.7; O2SAT 94
[2022-04-11] MEDS: Enoxaparin Sodium 40 MG/0.4 ML SYRINGE SUBCUT (00:26)
[2022-04-11] MEDS: 0.9 % Sodium Chloride Flush 3 ML SYRINGE IVFLUSH ×2 (00:27→08:59)
[2022-04-11 04:00] VITALS: BP 141/66; PULSE 58; RESP 20; TEMP 36.7; O2SAT 94
[2022-04-11 07:29] LABS: Glucose, Whole Blood 92 mg/dL (60-115)
[2022-04-11 08:00] VITALS: BP 132/60; PULSE 61; RESP 15; TEMP 36.7; O2SAT 94
[2022-04-11] MEDS: Famotidine/PF 20 MG/2 ML VIAL IVPUSH (08:58)
[2022-04-11] MEDS: Tamsulosin HCL 0.4 MG CAPSULE PO (08:59)
[2022-04-11] MEDS: Sertraline HCL 100 MG TABLET PO (08:59)
[2022-04-11] MEDS: guaiFENesin DM 200/20/10 ML 10 ML SYRUP PO ×3 (08:59→15:47)
[2022-04-11] MEDS: Gabapentin 600 MG TABLET PO ×2 (08:59→15:47)
[2022-04-11] MEDS: dexAMETHasone sod phosphate 4 MG/ML VIAL 6 MG IVPUSH (08:59)
[2022-04-11] MEDS: amLODIPine Besylate 2.5 MG TABLET PO (08:59)
[2022-04-11] MEDS: Atorvastatin Calcium 20 MG TABLET PO (08:59)
[2022-04-11] MEDS: oxyCODONE HCl Immed Release 5 MG TABLET PO (09:00)
--- NOTE | 2022-04-11 09:06 | MHC.CM.PN ---
Female DX AFIB PT recommends LTC. Multiple referrals have been sent out. All of the facilities have declined the patient. She does not have a sendary payor for LTC. She does not qualify for STR. Financial services working with the pt's son, to complete the [employer] application. DP LTC via BLS.
--- NOTE | 2022-04-11 10:21 | MHC.CM.PN ---
Male 76 DX Covid DP return to [facility]. A PT eval has been ordered at the request of the facility. T/W called [facility] and spoke with Nancy. She was provided an update on the discharge plan. She was notified that we are looking to see if the patient may qualify for STR. DP STR vs LTC at [facility] via BLS.
[2022-04-11 10:56] VITALS: BP 127/58; PULSE 65; RESP 15; TEMP 37.2; O2SAT 92
[2022-04-11 11:05] LABS: Glucose, Whole Blood 159 mg/dL (60-115)
[2022-04-11] MEDS: Insulin Lispro 100 UNIT/ML 3 ML VIAL SUBCUT (12:08)
--- NOTE | 2022-04-11 13:53 | P.DS_ITS ---
DS: Providers Provider Date of Service: 04/11/22 Date of admission: 04/07/22 23:52 Primary care physician: Stan Almanzar MD Consults: 04/08/22 02:23 Consult to Infectious Diseases Routine Consulting Provider: Martha Orourke Reason for consultation: covid/ hypoxia 04/08/22 02:24 Consult to General Surgery Routine Consulting Provider: Darrell Sebastian Reason for consultation: Stomach distension; NG tube placed for decompression. DS: Diagnosis Discharge Diagnosis (1) COVID-19: Status: Acute (2) Hypoxia: Status: Acute (3) Gastric dilation: Status: Acute DS: Summary Hospital Course Hospital Course: history of presenting illness Date of Service: 04/07/22 Chief Complaint: Nausea/vomiting/diarrhea 77-year-old male with a past medical history of hypertension, hyperlipidemia, CKD, anemia, alcohol abuse, anxiety, depression, BPH, history of unsteady gait/recurrent falls presented to the hospital today with a chief complaint of nausea/vomiting/diarrhea.? Patient reports that for the past 1 day he has been having nausea/vomiting/diarrhea.? Had multiple episodes.? Denies any blood in the vomitus or stool.? Denies any cough or sputum production.? Denies any fevers.? Denies any urinary symptoms.? Mentions that he has COVID-19 vaccinated.? Review of all other systems is negative except mentioned above ER course: Per ER team patient was noted to be mildly hypoxic on presentation; chest x-ray showed no acute findings; COVID-19 positive.? Placed on supplemental oxygen.? On CT abdomen showed severely dilated stomach; placed NG tube for decompression.? Admitted for further management hospital course 77-year-old male with a past medical history of hypertension, hyperlipidemia, CKD, anemia, alcohol abuse, anxiety, depression, BPH, history of unsteady gait/recurrent falls presented to the hospital with a chief complaint of nausea/vomiting/diarrhea.? Nausea/vomiting/diarrhea,All symptoms resolved, tolerating diabetic diet symptoms were likely related to viral gastroenteritis likely due to COVID, CT abdomen showed severely dilated stomach likely related to viral infection and Or gastroparesis status post NG tube placement, recommend to follow blood sugar closely and to follow low-calorie diet. Acute hypoxic respiratory failure secondary to COVID-19 infection, CT chest showed no PE, chest x-ray shows no consolidation, treated with IV Decadron and supportive care with cough medication and oxygen currently on 2 L of oxygen with stable finger oximetry recommend to continue 6 more days of by mouth Decadron, patient did not qualify for remdesivir since symptoms were present for 1 week prior to admission CRP 4.34, normal liver enzymes, procalcitonin 0.05, WBC normalized. Morbid obesity recommend low-calorie diet exercise Diabetes mellitus Hyperglycemia likely related to Decadron, recommend diabetic diet and close outpatient follow-up of blood sugars and hemoglobin A1c Metabolic alkalosis ABG showed elevated pCO2, with stable pH, likely related to chronic hypoventilation syndrome, recommend weight reduction Incidental finding of Denita mesentery on the CT abdomen:? Recommend repeat CT abdomen in 6 months, to be arranged by PCP. History of hypertension/hyperlipidemia: Continue amlodipine and Lipitor History of depression: Continue home sertraline History of BPH:? Continue home Flomax History of unsteady gait/recurrent falls: patient is bedridden for almost a year, seen by physical therapy they recommend skilled services to promote functional mobility Time Spent with Patient Time attestation: Total time spent providing and/or coordinating discharge services: Discharge coordination time: Greater than 30 minutes Quality: Safe Use of Opioids Does Pt have an Active Cancer Diagnosis on the Problem List?: No Quality: Stroke Does the patient have a stroke diagnosis?: No Physical Exam Vital Signs: Vital Signs: Last Vital Signs Temp 98.9 F 04/11/22 10:56 Pulse 65 04/11/22 10:56 Resp 15 04/11/22 10:56 BP 127/58 L 04/11/22 10:56 Pulse Ox 92 04/11/22 10:56 O2 Del Method 04/11/22 10:56 O2 Flow Rate 2.0 04/11/22 10:56 BMI result Body Mass Index 48.4 Const: Other: General awake aler t, resting comfort ably in no acute d istress.? Neck no JVD. CVS? regular rate rhythm, Respi ratory lungs clear to auscultation, no respiratory dis tress, no wheeze, no rhonchi. Gastro intestinal abdomen soft, distended, nontender, bowel s ounds audible, no guarding , no rigi dity. 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 04/07/22 19:52 Blood Culture - Preliminary Blood - Venous No growth after 48 hours. Discharge Plan Discharge Patient Disposition: er [facility] Discharge Diagnosis: acute hypoxic respiratory failure COVID-19 infection nausea vomiting diarrhea dilated stomach Referrals: Stan Almanzar MD [Primary Care Provider] - 1 Week Discharge Medications: New dextromethorphan-guaifenesin 10-100 mg/5 mL Syrup 10 ml PO QID Qty: 237 0RF Rx Instructions: take cough medication for next 3 days dexamethasone 6 mg tablet 6 mg PO DAILY Qty: 6 0RF Continued gabapentin 600 mg tablet 1 tab PO TID atorvastatin 20 mg tablet 1 tab PO DAILY ondansetron HCl 4 mg tablet 1 tab PO Q6H PRN (Reason: Nausea And Vomiting) sertraline 100 mg tablet 1 tab PO DAILY amlodipine 2.5 mg tablet 1 tab PO DAILY tamsulosin 0.4 mg capsule 1 cap PO BEDTIME trazodone 100 mg tablet 1 tab PO BEDTIME acamprosate 333 mg tablet,delayed release (DR/EC) 2 tab PO BID oxycodone 5 mg tablet 1 tab PO BID PRN (Reason: Pain) ammonium lactate 12 % lotion 1 applic topical BID Rx Instructions: to both legs loperamide 2 mg Capsule 2 mg PO Q8H PRN (Reason: Diarrhea) albuterol sulfate [ProAir HFA] 90 mcg/actuation Hfa Aerosol Inhaler 2 puff INHALATION Q4H PRN (Reason: Wheezing) diclofenac sodium 1 % gel 1 g topical Q6H PRN (Reason: Pain) polyvinyl alcohol [Artificial Tears (polyvin alc)] 1.4 % Drops 1 drp OPHTHALMIC (EYE) BID thiamine HCl (vitamin B1) 100 mg Tablet 100 mg PO DAILY aspirin 81 mg Tablet,Delayed Release (Dr/Ec) 81 mg PO DAILY cholecalciferol (vitamin D3) 25 mcg (1,000 unit) Tablet 25 mcg PO DAILY Discharge Orders: Discharge Order (Routine); Ordered 04/11/22 Ordered By: Ofe Fernandez Diet: Diabetic diet Activity on Discharge: As tolerated Stand Alone Forms: Patient Portal Discharge page Care Plan Goals: COVID-19 infection Health Concerns: COVID-19 infection take dexamethasone for 6 more days, metabolic alkalosis due to chronic hypoventilation syndrome, currently on 2 L of oxygen gradually wean to keep finger oximetry above 90, continue all home medication, physical therapy as tolerated follow blood sugar and hemoglobin A1c as outpatient low-calorie diet Plan of Treatment: follow-up with primary care physician in 1 week Assessment: as per discharge summary
[2022-04-11 15:04] VITALS: BP 143/60; PULSE 80; RESP 18; TEMP 37.3; O2SAT 94
[2022-04-11 15:59] LABS: Glucose, Whole Blood 197 mg/dL (60-115)
== END 2022-04-11 16:15 | disposition skilled nursing facility (03) | DRG 177 ==
LOC: HO.ED 22:47 → HO.EDOVER 23:57 → HO.IMC 04-09 19:50
PROVIDERS: Admitting Provider Hospitalist; Emergency Provider Emergency Medicine; PCP Family Medicine; Visit Provider Hospitalist
DX: U07.1 COVID-19 (principal); J96.01 Acute respiratory failure with hypoxia; A08.39 Other viral enteritis; Z68.42 Body mass index [BMI] 45.0-49.9, adult; E87.3 Alkalosis; F41.9 Anxiety disorder, unspecified; F32.A Depression, unspecified; N40.0 Benign prostatic hyperplasia without lower urinary tract symptoms; R73.9 Hyperglycemia, unspecified; T38.0X5A Adverse effect of glucocorticoids and synthetic analogues, initial encounter; E66.01 Morbid (severe) obesity due to excess calories; E78.5 Hyperlipidemia, unspecified; I12.9 Hypertensive chronic kidney disease with stage 1 through stage 4 chronic kidney disease, or unspecified chronic kidney disease; N18.9 Chronic kidney disease, unspecified; Z79.82 Long term (current) use of aspirin; Z79.899 Other long term (current) drug therapy
CPT/HCPCS: 36415; 71045; 71275; 74176; 80048; 80076; 82550; 82803; 82947; 83605; 83615; 83690; 83735; 83880; 84145; 84484; 85025; 85027; 85379; 85610; 86140; 87040; 87635; 93005; 96374; 96375; 97162; 99285; J1100; J1170; J1200; J1650; J1940; J2405; J2765; Q9967

== ENCOUNTER 2023-06-11 20:12 | Inpatient (IN) | payer OTHER, SELFPAY ==
--- NOTE | 2023-06-11 | ECG_ITS ---
Test Reason : REPEAT EKG Blood Pressure : / mmHG Vent. Rate : 085 BPM Atrial Rate : 000 BPM P-R Int : 000 ms QRS Dur : 086 ms QT Int : 364 ms P-R-T Axes : 000 080 051 degrees QTc Int : 433 ms Atrial fibrillation Low voltage QRS Abnormal ECG When compared with ECG of 11-JUN-2023 20:17, No significant change was found Referred By: Mainor Nicole Electronically Signed By:
--- NOTE | 2023-06-11 | ECG_ITS ---
Test Reason : RAPID AFIB Blood Pressure : / mmHG Vent. Rate : 116 BPM Atrial Rate : 000 BPM P-R Int : 000 ms QRS Dur : 088 ms QT Int : 314 ms P-R-T Axes : 000 087 054 degrees QTc Int : 436 ms Atrial fibrillation with rapid ventricular response Abnormal ECG When compared with ECG of 07-APR-2022 19:10, Atrial fibrillation has replaced Sinus rhythm Referred By: Generic ED Physician Electronically Signed By:KATLIN BONILLA MD
--- NOTE | ~2023-06-11 | XR_ITS ---
EXAMINATION: XR CHEST CLINICAL INFORMATION: New orogastric tube COMPARISON: Previous chest x-ray most recent 06/11/2020 TECHNIQUE: Frontal view of the chest was obtained. FINDINGS: New orogastric tube with tip projecting over the proximal stomach. The cardiac silhouette is enlarged but stable. Overlying pads and leads. Low lung volumes. Lungs are otherwise clear. No pleural effusion or pneumothorax. XR/XR chest 1V IMPRESSION: Orogastric tube projects over the proximal stomach.
--- NOTE | ~2023-06-11 | CT_ITS ---
EXAMINATION: CT ANGIOGRAM OF THE CHEST WITH AND WITHOUT CONTRAST (CT PULMONARY ANGIOGRAM FOR PE) CLINICAL INFORMATION: Reason for Exam acute sob ?pe COMPARISON: Chest x-ray 06/11/2023, CT 04/07/2022 TECHNIQUE: Prior to contrast administration, noncontrast localization images were obtained. Subsequently, multidetector volumetric imaging was performed from the thoracic inlet to below the diaphragms following the administration of 100 mL Omnipaque 350 intravenous contrast. Per technologist report, a repeat injection of 100 mL contrast was required due to scanner malfunction. Sagittal, coronal, and MIP oblique sagittal reformatted images were obtained on the CT workstation, uploaded to PACS, and reviewed. This CT examination was performed using dose optimization techniques as appropriate, variously including the following: *Automated exposure control *Adjustment of mA and/or kV according to patient size (this includes techniques or standardized protocols for targeted exams where dose is matched to indication/reason for exam; i.e. extremities or head) *Use of iterative reconstruction technique Total exam dose-length product 674 mGy-cm FINDINGS: QUALITY OF STUDY/CONTRAST BOLUS: Suboptimal. PULMONARY ARTERIES: No central pulmonary embolus is seen. However, assessment of much of the segmental and subsegmental vasculature is significantly limited due to respiratory motion artifact, and therefore emboli at these levels cannot be excluded. THORACIC AORTA: No evidence of aneurysm or dissection. Scattered atherosclerotic calcification. LUNG: Limited detailed evaluation due to respiratory motion artifact. Bibasilar subsegmental atelectasis. PLEURA: No pleural effusion or pneumothorax. MEDIASTINUM: The visualized thyroid gland is unremarkable. There are subcentimeter mediastinal lymph nodes within the range of normal variation. Mild cardiomegaly without pericardial effusion. CORONARY ARTERY CALCIFICATION: Present CHEST WALL/AXILLA: No axillary or internal mammary lymphadenopathy. OSSEOUS STRUCTURES: Multilevel degenerative changes in the spine. UPPER ABDOMEN: Cholelithiasis is noted. No reflux of contrast into the hepatic veins to suggest elevated right heart pressures. CT/CT angio chest PE protocol IMPRESSION: 1. No central pulmonary embolus identified. However, assessment of much of the segmental and subsegmental vasculature is significantly limited due to respiratory motion artifact, and therefore emboli at these levels cannot be excluded. 2. Mild cardiomegaly. 3. Cholelithiasis. VTE: negative.
--- NOTE | ~2023-06-11 | CT_ITS ---
EXAMINATION: CT HEAD WITHOUT CONTRAST CLINICAL INFORMATION: New onset altered mental status, atrial fibrillation COMPARISON: None available. TECHNIQUE: Contiguous axial imaging was performed from the skull base to vertex without intravenous administration of contrast. This CT examination was performed using dose optimization techniques as appropriate, variously including the following: *Automated exposure control *Adjustment of mA and/or kV according to patient size (this includes techniques or standardized protocols for targeted exams where dose is matched to indication/reason for exam; i.e. extremities or head) *Use of iterative reconstruction technique DLP: 889 mGy-cm FINDINGS: There is no evidence of acute intracranial hemorrhage or territorial infarction. No abnormal mass-effect or midline shift is seen. Fall to white matter differentiation is well preserved. No extra-axial fluid collections are identified. The ventricles are normal in size. There is mild periventricular white matter hypoattenuation consistent with chronic small vessel ischemic disease. Mild volume loss is noted. The osseous structures and soft tissues are normal. The mastoid air cells and visualized portions of the paranasal sinuses are well-aerated. CT/CT head/brain wo IV con IMPRESSION: No acute intracranial pathology. Chronic small vessel ischemic disease and volume loss.
--- NOTE | ~2023-06-11 | XR_ITS ---
EXAMINATION: XR CHEST CLINICAL INFORMATION: Atrial fibrillation COMPARISON: Previous chest x-ray March 2022 TECHNIQUE: Frontal view of the chest was obtained. FINDINGS: The cardiac silhouette is slightly enlarged but stable. There is question of pulmonary venous redistribution. The lungs are otherwise clear. Lung volumes are low. No pleural effusion or pneumothorax. Degenerative changes of the spine and right shoulder. XR/XR chest 1V IMPRESSION: Slightly enlarged cardiac silhouette and question pulmonary venous redistribution.
[2023-06-11 20:18] VITALS: BP 100/50; PULSE 162; O2SAT 94; BMI 61.7
[2023-06-11 20:21] VITALS: BP 133/57; PULSE 120; RESP 18; TEMP 36.7; O2SAT 96
--- NOTE | 2023-06-11 20:37 | ED.SOB ---
HPI - SOB/Dyspnea General Chief Complaint: Arrhythmia/Palpitations Stated Complaint: LOW O2 PER STAFF IN 50'S, NOW 94% ON 3L Time Seen by Provider: 06/11/23 20:30 Source: EMS Mode of arrival: EMS Limitations: altered mental status History of Present Illness HPI Narrative: Patient is 77 years old from snf with history of alcohol dependence in remission morbid obesity hypertension with depressive disorder comes in for acute shortness of breath with tachycardia started prior to arrival was saturating 50% at room air with frothing and obtundation patient also complained chest discomfort to the staff no fever no cough patient nonambulatory no recent fall no history of sleep apnea has oxygen but does not use it per snf staff patient is usually alert oriented and does communicate no history of substance abuse Related Data Home Medications Medication Instructions Recorded Confirmed acamprosate 333 mg tablet,delayed 2 tab PO BID 04/08/22 04/08/22 release albuterol sulfate 90 mcg/actuation 2 puff inhalation Q4H PRN Wheezing 04/08/22 04/08/22 aerosol inhaler (ProAir HFA) amlodipine 2.5 mg tablet 1 tab PO DAILY 04/08/22 04/08/22 ammonium lactate 12 % lotion 1 applic topical BID 04/08/22 04/08/22 aspirin 81 mg tablet,delayed 81 mg PO DAILY 04/08/22 04/08/22 release atorvastatin 20 mg tablet 1 tab PO DAILY 04/08/22 04/08/22 cholecalciferol (vitamin D3) 25 25 mcg PO DAILY 04/08/22 04/08/22 mcg (1,000 unit) tablet diclofenac sodium 1 % topical gel 1 g topical Q6H PRN Pain 04/08/22 04/08/22 gabapentin 600 mg tablet 1 tab PO TID 04/08/22 04/08/22 loperamide 2 mg capsule 2 mg PO Q8H PRN Diarrhea 04/08/22 04/08/22 ondansetron HCl 4 mg tablet 1 tab PO Q6H PRN Nausea And 04/08/22 04/08/22 Vomiting oxycodone 5 mg tablet 1 tab PO BID PRN Pain 04/08/22 04/08/22 polyvinyl alcohol 1.4 % eye drops 1 drp ophthalmic (eye) BID 04/08/22 04/08/22 (Artificial Tears (polyvinyl alcohol)) sertraline 100 mg tablet 1 tab PO DAILY 04/08/22 04/08/22 tamsulosin 0.4 mg capsule 1 cap PO BEDTIME 04/08/22 04/08/22 thiamine HCl (vitamin B1) 100 mg 100 mg PO DAILY 04/08/22 04/08/22 tablet trazodone 100 mg tablet 1 tab PO BEDTIME 04/08/22 04/08/22 Previous Rx's Medication Instructions Recorded dexamethasone 6 mg tablet 6 mg PO DAILY #6 tabs 04/11/22 dextromethorphan-guaifenesin 10 10 ml PO QID #237 mL 04/11/22 mg-100 mg/5 mL oral syrup Allergies Allergy/AdvReac Type Severity Reaction Status Date / Time No Known Allergies Allergy Verified 04/07/22 18:25 Review of Systems Review of Systems: Yes Unobtainable due to mental condition PMFSH Past Medical History Medical History Unsteady gait HTN (hypertension) CKD (chronic kidney disease) Alcoholism Anemia Social History Social History Household Members: Other Household Members Other:: faclity Housing: Longterm Do you presently have visiting nurse or other home services: Yes (snf per pt) Unable to assess alcohol history related to: Unknown Patient Tobacco Use Status: Never used Tobacco Advance Directives: No Advance Directives Information Provided: No Current occupational status: retired Physical Exam Vital Signs: Vital Signs: Last Vital Signs Temp 97.8 F 06/11/23 21:50 Pulse 88 06/12/23 00:59 Resp 16 06/12/23 00:33 BP 137/56 L 06/12/23 00:59 Pulse Ox 97 06/12/23 00:59 O2 Del Method BiPAP 06/12/23 00:59 O2 Flow Rate 4 06/11/23 21:50 BMI result Body Mass Index 61.7 Appearance: Lethargic obtunded easily arousable obese. No acute distress. Eyes: PERRLA, ENT: Pharynx normal. Oral Mucosa moist Neck: Normal inspection. Neck supple. CVS: Irregularly irregular tachycardia no murmur Pulses normal. Respiratory: More respiratory distress. Equal air entry bilateral, bilateral rales Abdomen: Soft and nontender. Bowel sounds are present, no mass palpable, no CVA tenderness Skin: Skin warm and dry. Normal skin color. Normal skin turgor. Extremities: Nonpitting lymphedema bilateral No calf tenderness Neuro: Oriented X 2-3. No motor deficit. No sensory deficit.No cerebellar signs , cranial nerves II-XII intact Medications Administered Generic Name Dose Route Start Last Admin Trade Name Freq PRN Reason Stop Dose Admin Diltiazem HCl 125 mg/ Sodium 125 mls @ 0 mls/hr 06/11/23 23:45 06/12/23 00:29 Chloride IVCONT 10 mg/hr .Q0M LILIANA 10 mls/hr Administration Protocol Per Protocol Discontinued Medications Generic Name Dose Route Start Last Admin Trade Name Freq PRN Reason Stop Dose Admin Apixaban 5 mg 06/11/23 23:31 06/12/23 00:30 Apixaban 5 Mg Tablet PO 06/11/23 23:32 Not Given ONCE ONE Diltiazem HCl 25 mg 06/11/23 20:37 06/11/23 20:47 Diltiazem Hcl 50 Mg/10 Ml Vial IVPUSH 06/11/23 20:38 25 mg STAT STA Administration Ceftriaxone Sodium 1 gm/ 50 mls @ 100 mls/hr 06/12/23 01:20 06/12/23 01:51 Sodium Chloride IV 06/12/23 01:49 100 mls/hr ONCE ONE Administration Iohexol 100 ml 06/12/23 00:31 06/12/23 00:31 Iohexol 350 Mg/Ml 100 Ml Infus..Btl IV 06/12/23 00:32 100 ml ONCE ONE Administration Medical Decision Making Medical Decision Making [facility] Narrative: Patient morbidly obese weighing about 400 lb came with acute shortness of breath with new onset of AFib negative for CHF or PE CT scan of the head negative for CVA heart rate controlled on Cardizem drip Eliquis started venous gas showed hypercapnia with hypoxia placements BiPAP patient is full code will admit patient to ICU for acute on chronic hypoxic hypercapnic respiratory failure with new onset AFib Differential Diagnosis Differential Diagnoses: The differential diagnosis associated with the presentation includes Pneumonia/atypical infection/COVID/CHF/ AFib/CVS/substance abuse/respiratory failure Consult Healthcare Provider Management of the patient was discussed with: Laborer/Key Man Dr. Rodríguez glove turner Lab Data [facility] Lab Attestation statement: I reviewed the patient's lab results. 06/11/23 21:17 06/11/23 21:17 Labs: Lab Results 06/11/23 06/11/23 06/11/23 Range/Units 20:45 21:17 21:23 WBC 14.8 H (4.8-10.8) X10*3/uL RBC 5.71 (4.60-5.80) X10*6/uL Hgb 14.5 (14.0-18.0) g/dl Hct 48.0 (42.0-52.0) % MCV 84.1 (80.0-98.0) fL MCH 25.4 L (27.0-33.0) pg MCHC 30.2 L (31.0-36.0) g/dl RDW 15.6 (11.0-16.0) % Plt Count 259 (160-400) X10*3/uL MPV 8.7 L (9.4-12.4) fL Immature Gran % (Auto) 0.5 H (0.0-0.4) % Neut % (Auto) 89.7 H (45-73) % Lymph % (Auto) 4.5 L (20-40) % Patrick % (Auto) 4.9 (2-11) % Eos % (Auto) 0.2 (0-4) % Baso % (Auto) 0.2 (0-2) % Lymph # (Auto) 0.7 L (1.2-4.9) X10*3/uL Patrick # (Auto) 0.7 (0.1-1.2) X10*3/uL Eos # (Auto) 0.0 (0.0-0.4) X10*3/uL Baso # (Auto) 0.0 (0.0-0.2) X10*3/uL Abs Immat Gran (auto) 0.08 H (0.00-0.03) X10*3/uL Absolute Neuts (auto) 13.3 H (2.0-8.3) x10*3/uL Absolute Nucleated RBC 0.000 (0.0-0.012) X10*3/uL Nucleated RBC % (auto) 0.0 (0.0-0.2) /100WBC PT 11.2 (11.1-13.3) SEC INR 0.9 (0.9-1.1) APTT 33.5 (26.0-36.4) SEC D-Dimer High Sensitivty 278 NG/ML VBG pH 7.21 L (7.32-7.43) VBG pCO2 83 mmHg VBG pO2 46 mmHg VBG HCO3 33 H (22-26) mmol/L VBG O2 Saturation 66.0 % VBG Base Excess 2.2 mmol/L Sodium 132 L (135-145) mmol/L Potassium 5.2 H D (3.3-5.1) mmol/L Chloride 92 L (96-108) mmol/L Carbon Dioxide 31 H (22-29) mmol/L Anion Gap 14 (12-20) BUN 10 (9-16) mg/dL Creatinine 0.75 (0.5-1.4) mg/dL Estim Creat Clear Calc 81.6 Estimated GFR > 60 Random Glucose 154 H (60-115) mg/dL Lactic Acid 1.0 (0.5-2.0) mmol/L Calcium 9.8 D (8.4-10.2) mg/dL Magnesium 1.9 (1.6-2.6) mg/dL Total Bilirubin 0.5 (0.0-1.0) mg/dL AST 17 (5-37) U/L ALT 14 (0-40) U/L Alkaline Phosphatase 98 (39-117) U/L Troponin I High Sens < 2.7 (<3.5-35.0) ng/L B-Natriuretic Peptide 57 (<100) pg/mL Total Protein 8.0 (6.5-8.0) g/dL Albumin 3.8 (3.5-5.0) g/dL Influenza Type A (PCR) NEGATIVE (Negative) Influenza Type B (PCR) NEGATIVE (Negative) RSV RNA Qual (PCR) NEGATIVE (Negative) SARS-CoV-2 RNA (RT-PCR) NEGATIVE (Negative) 06/11/23 06/11/23 Range/Units 23:49 23:52 WBC (4.8-10.8) X10*3/uL RBC (4.60-5.80) X10*6/uL Hgb (14.0-18.0) g/dl Hct (42.0-52.0) % MCV (80.0-98.0) fL MCH (27.0-33.0) pg MCHC (31.0-36.0) g/dl RDW (11.0-16.0) % Plt Count (160-400) X10*3/uL MPV (9.4-12.4) fL Immature Gran % (Auto) (0.0-0.4) % Neut % (Auto) (45-73) % Lymph % (Auto) (20-40) % Patrick % (Auto) (2-11) % Eos % (Auto) (0-4) % Baso % (Auto) (0-2) % Lymph # (Auto) (1.2-4.9) X10*3/uL Patrick # (Auto) (0.1-1.2) X10*3/uL Eos # (Auto) (0.0-0.4) X10*3/uL Baso # (Auto) (0.0-0.2) X10*3/uL Abs Immat Gran (auto) (0.00-0.03) X10*3/uL Absolute Neuts (auto) (2.0-8.3) x10*3/uL Absolute Nucleated RBC (0.0-0.012) X10*3/uL Nucleated RBC % (auto) (0.0-0.2) /100WBC PT (11.1-13.3) SEC INR (0.9-1.1) APTT (26.0-36.4) SEC D-Dimer High Sensitivty NG/ML VBG pH 7.24 L (7.32-7.43) VBG pCO2 69 mmHg VBG pO2 53 mmHg VBG HCO3 30 H (22-26) mmol/L VBG O2 Saturation 78.0 % VBG Base Excess 1.1 mmol/L Sodium (135-145) mmol/L Potassium (3.3-5.1) mmol/L Chloride (96-108) mmol/L Carbon Dioxide (22-29) mmol/L Anion Gap (12-20) BUN (9-16) mg/dL Creatinine (0.5-1.4) mg/dL Estim Creat Clear Calc Estimated GFR Random Glucose (60-115) mg/dL Lactic Acid (0.5-2.0) mmol/L Calcium (8.4-10.2) mg/dL Magnesium (1.6-2.6) mg/dL Total Bilirubin (0.0-1.0) mg/dL AST (5-37) U/L ALT (0-40) U/L Alkaline Phosphatase (39-117) U/L Troponin I High Sens 4.6 D (<3.5-35.0) ng/L B-Natriuretic Peptide (<100) pg/mL Total Protein (6.5-8.0) g/dL Albumin (3.5-5.0) g/dL Influenza Type A (PCR) (Negative) Influenza Type B (PCR) (Negative) RSV RNA Qual (PCR) (Negative) SARS-CoV-2 RNA (RT-PCR) (Negative) ABG Data Attestation ABG: I personally reviewed and interpreted this ABG as follows: Interpretation: Acute hypoxic hypercapnic Independent Interpretation I performed an independent interpretation of an: EKG Interpretation: Atrial fibrillation with ventricular rate of 116 beats per minute no acute ST-T changes, no acute ischemia Radiology Impression Discussion of test interpretation with radiology: I have reviewed the radiologist's reading. Radiologist Impression: [place] [id number] CT Scan Report Signed Patient: Pj Funes MR#: [id number] : 1945 Acct:[id number] Age/Sex: 77 / M ADM Date: 06/11/23 Loc: .ED Attending Dr: Ordering Physician: Mainor Nicole MD Date of Service: 06/12/23 Procedure(s): CT angio chest PE protocol Accession Number(s): [id number] cc: Physician,Unknown ; Mainor Nicole MD~ EXAMINATION: CT ANGIOGRAM OF THE CHEST WITH AND WITHOUT CONTRAST (CT PULMONARY ANGIOGRAM FOR PE) CLINICAL INFORMATION: Reason for Exam acute sob ?pe COMPARISON: Chest x-ray 06/11/2023, CT 04/07/2022 TECHNIQUE: Prior to contrast administration, noncontrast localization images were obtained. Subsequently, multidetector volumetric imaging was performed from the thoracic inlet to below the diaphragms following the administration of 100 mL Omnipaque 350 intravenous contrast. Per technologist report, a repeat injection of 100 mL contrast was required due to scanner malfunction. Sagittal, coronal, and MIP oblique sagittal reformatted images were obtained on the CT workstation, uploaded to PACS, and reviewed. This CT examination was performed using dose optimization techniques as appropriate, variously including the following: *Automated exposure control *Adjustment of mA and/or kV according to patient size (this includes techniques or standardized protocols for targeted exams where dose is matched to indication/reason for exam; i.e. extremities or head) *Use of iterative reconstruction technique Total exam dose-length product 674 mGy-cm FINDINGS: QUALITY OF STUDY/CONTRAST BOLUS: Suboptimal. PULMONARY ARTERIES: No central pulmonary embolus is seen. However, assessment of much of the segmental and subsegmental vasculature is significantly limited due to respiratory motion artifact, and therefore emboli at these levels cannot be excluded. THORACIC AORTA: No evidence of aneurysm or dissection. Scattered atherosclerotic calcification. LUNG: Limited detailed evaluation due to respiratory motion artifact. Bibasilar subsegmental atelectasis. PLEURA: No pleural effusion or pneumothorax. MEDIASTINUM: The visualized thyroid gland is unremarkable. There are subcentimeter mediastinal lymph nodes within the range of normal variation. Mild cardiomegaly without pericardial effusion. CORONARY ARTERY CALCIFICATION: Present CHEST WALL/AXILLA: No axillary or internal mammary lymphadenopathy. OSSEOUS STRUCTURES: Multilevel degenerative changes in the spine. UPPER ABDOMEN: Cholelithiasis is noted. No reflux of contrast into the hepatic veins to suggest elevated right heart pressures. CT/CT angio chest PE protocol IMPRESSION: 1. No central pulmonary embolus identified. However, assessment of much of the segmental and subsegmental vasculature is significantly limited due to respiratory motion artifact, and therefore emboli at these levels cannot be excluded. 2. Mild cardiomegaly. 3. Cholelithiasis. VTE: negative. Dictated By: Candido Longoria MD Signed By: <Electronically signed by Candido Longoria MD in OV> 06/12/23 0102 DD/ 0025 TD/TT: Time Study Engineer: NELLA External Record Review External record reviewed: Outpatient record Critical Care Time Critical Care Time Critical Care Time: Yes Total Critical Care Time: 70 Attestation: The patient was critically ill with a high probability of imminent or life threatening deterioration. I spent greater than 90 minutes of discontinuous time evaluating the patient,delivering critical care at the bedside, discussing and evaluating pertinent data with consultants. Critical care time does not include time spent performing separately billable procedures or teaching. Total time spent performing critical care was 70 minutes. Discharge Plan Discharge Clinical Impression: Atrial fibrillation with rapid ventricular response, Acute on chronic respiratory failure with hypoxia and hypercapnia Patient Disposition: Admitted As Inpatient
[2023-06-11] MEDS: dilTIAZem HCL 50 MG/10 ML VIAL 25 MG IVPUSH (20:47)
[2023-06-11 20:50] VITALS: PULSE 83; RESP 17
--- NOTE | 2023-06-11 20:55 | PC.NURSE ---
PT ARRIVED AT 162 AFIB 5MG DILTIAZEM GIVEN RATE WENT TO 76 , LET PROVIDER KNOW EKG ORDERED
[2023-06-11 21:24] LABS: B Type Natriuretic Peptide 57 pg/mL (<100)
[2023-06-11 21:25] LABS: Basophils Percent Auto 0.2 % (0-2); Eosinophils Percent Auto 0.2 % (0-4); Hemoglobin 14.5 g/dl (14.0-18.0); Imm Gran Abs Auto 0.08 X10*3/uL (0.00-0.03); Imm Gran Pct Auto 0.5 % (0.0-0.4); Lymphocytes Absolute Auto 0.7 X10*3/uL (1.2-4.9); Lymphocytes Percent Auto 4.5 % (20-40); Mean Corpuscular HGB Conc 30.2 g/dl (31.0-36.0); Mean Corpuscular Hemoglobin 25.4 pg (27.0-33.0); Mean Corpuscular Volume 84.1 fL (80.0-98.0); Mean Platelet Volume 8.7 fL (9.4-12.4); Monocytes Absolute Auto 0.7 X10*3/uL (0.1-1.2); Monocytes Percent Auto 4.9 % (2-11); Neutrophils Absolute Auto 13.3 x10*3/uL (2.0-8.3); Neutrophils Percent Auto 89.7 % (45-73); Platelet Count 259 X10*3/uL (160-400); Red Blood Count 5.71 X10*6/uL (4.60-5.80); Red Cell Distribution Width 15.6 % (11.0-16.0); White Blood Count 14.8 X10*3/uL (4.8-10.8)
[2023-06-11 21:29] LABS: VBG Base Excess 2.2 mmol/L; VBG HCO3 33 mmol/L (22-26); VBG pCO2 83 mmHg; VBG pH 7.21 (7.32-7.43); VBG pO2 46 mmHg
[2023-06-11 21:29] LABS: Venous Blood Gas Refer to POC result
[2023-06-11 21:41] VITALS: PULSE 94; RESP 14; O2SAT 94
[2023-06-11 21:41] LABS: Alanine Aminotransferase 14 U/L (0-40); Albumin Level 3.8 g/dL (3.5-5.0); Alkaline Phosphatase 98 U/L (39-117); Anion Gap 14 (12-20); Aspartate Amino Transferase 17 U/L (5-37); Bilirubin Total 0.5 mg/dL (0.0-1.0); Blood Urea Nitrogen 10 mg/dL (9-16); Calcium 9.8 mg/dL (8.4-10.2); Carbon Dioxide 31 mmol/L (22-29); Chloride 92 mmol/L (96-108); Creatinine Clr Calc Pharmacy 81.6; Estimated Glomerular Filt Rate > 60; Glucose Random 154 mg/dL (60-115); Magnesium 1.9 mg/dL (1.6-2.6); Potassium 5.2 mmol/L (3.3-5.1); Sodium 132 mmol/L (135-145)
[2023-06-11 21:44] LABS: INTERNATIONAL NORM RATIO 0.9 (0.9-1.1); Prothrombin Time 11.2 SEC (11.1-13.3)
[2023-06-11 21:47] LABS: Partial Thromboplastin Time 33.5 SEC (26.0-36.4)
[2023-06-11 21:50] VITALS: BP 117/86; PULSE 96; RESP 13; TEMP 36.6; O2SAT 94
[2023-06-11 21:50] LABS: Troponin-I High Sensitivity < 2.7 ng/L (<3.5-35.0)
[2023-06-11 22:11] LABS: D Dimer High Sensitivity 278 NG/ML
[2023-06-11 22:20] LABS: Influenza A PCR NEGATIVE (Negative); Influenza B PCR NEGATIVE (Negative); Resp Syncy Virus RNA Qual PCR NEGATIVE (Negative); SARS COV2 PCR INHOUSE NEGATIVE (Negative)
[2023-06-11 22:25] VITALS: BP 143/71; PULSE 90; RESP 17; O2SAT 97
[2023-06-11 23:58] LABS: Venous Blood Gas Refer to POC result
[2023-06-11 23:59] LABS: VBG Base Excess 1.1 mmol/L; VBG HCO3 30 mmol/L (22-26); VBG pCO2 69 mmHg; VBG pH 7.24 (7.32-7.43); VBG pO2 53 mmHg
[2023-06-12] VITALS (29 sets, daily range): BP systolic 96–165; BP diastolic 52–90; PULSE 75–109; RESP 11–21; TEMP 36–36.7; O2SAT 89–99; BMI 59.1
[2023-06-12] MEDS: dilTIAZem HCL 125 MG in 0.9 % Sodium Chloride 100 ML 10 MG IVCONT (00:29)
[2023-06-12] MEDS: iohexoL 350 MG/ML 100 ML INFUS..BTL IV (00:31)
--- NOTE | 2023-06-12 00:32 | PC.NURSE ---
pt unableto swallow water at this time- could not administer eliquis. let provider know
[2023-06-12 00:37] LABS: Troponin-I High Sensitivity 4.6 ng/L (<3.5-35.0)
--- NOTE | 2023-06-12 00:46 | PC.NURSE ---
attempted to call facility with no success
--- NOTE | 2023-06-12 01:12 | PC.NURSE ---
Spoke with nurse at [facility], pt normally alert and talkative. Does have order for 02 PRN however sts pt never needs it
[2023-06-12] MEDS: cefTRIAXone sodium 1 GM in 0.9 % Sodium Chloride 50 ML IV (01:51)
[2023-06-12 01:54] LABS: Appearance Urine Clear; Color Urine Yellow; Glucose Urine UA Negative (Negative); Leukocyte Esterase Urine Negative (Negative); Nitrite Urine Negative (Negative); PH 5.5 (5.0-9.0); Specific Gravity - Urine >= 1.030 (1.005-1.025); UMIC TRIGGER UACC YES; Urine Blood Small (1+) (Negative); Urine Ketones Negative (Negative); Urine Protein 100 (2+) mg/dL (Neg-Trace)
[2023-06-12 02:06] LABS: Amphetamine Screen Urine Not Detected (Not Detect); Barbiturates, Urine Not Detected (Not Detect); Benzodiazepines Screen Urine Not Detected (Not Detect); Cannabinoid Screen Urine Not Detected (Not Detect); Cocaine Screen Urine Not Detected (Not Detect); Fentanyl, urine Not Detected (Not Detect); Opiate Screen Urine Not Detected (Not Detect); Phencyclidine Screen Urine Not Detected (Not Detect)
[2023-06-12 02:12] LABS: Bacteria Urine None Seen (None Seen); RBC Urine 0-2 /HPF (0-2); WBC Urine 0-5 /HPF (0-5)
--- NOTE | 2023-06-12 02:39 | PC.NURSE ---
PT VITALS WNL, STILL LETHARGIC ON BIPAP, CT SCAN WNL, SHOWING NEG FOR PE. PT MAINTAING RATE CONTROLLED AFIB AT 70S-80S HEART RATE AT 10MG. RECIO INPLACE AND PERICARE PERFORMED DURING SHIFT. ALL IVS FLUSHED AND READY FOR ACCESS. NURSE TO NURSE REPORTS WAS CALLED TO ICU
[2023-06-12] MEDS: dilTIAZem HCL 125 MG in 0.9 % Sodium Chloride 100 ML IVCONT (03:19)
[2023-06-12 03:35] LABS: VBG HCO3 33 mmol/L (22-26); VBG pCO2 79 mmHg; VBG pH 7.22 (7.32-7.43); VBG pO2 42 mmHg
--- NOTE | 2023-06-12 04:18 | PM.CCHP ---
History of Present Illness Date of Service: 06/12/23 Attending physician on admission: Ocsar Rodríguez Chief Complaint: Acute hypercapnic respiratory failure with hypoxia Mr. Fuens is a 77-year-old male with a past medical history of hypertension, hyperlipidemia, CKD, anemia, alcohol abuse, anxiety, depression, and BPH who was sent to the emergency room from his care home facility? for shortness of breath and tachycardia. Prior to arrival his? O2 sats were in the 50s on room air with frothing and obtundation. [facility]itentiary staff also reported a complaint of chest discomfort.? On? arrival to the ED, ?the patient's blood pressure 133/57, heart rate 120,? respiratory rate 18, O2 Sat 96% on 3LNC. Laboratory data significant for? WBC 14.8,? sodium 132, potassium 5.2, chloride 92, CO2 31.? Urine specific gravity greater than 1.030, 2+ protein, 1+ blood. ? VBG showed a pH of 7.21, pCO2 83, PO2 46, HC03 33,? base excess 2.2. Imaging: XR/XR chest 1V Slightly enlarged cardiac silhouette and question pulmonary venous Redistribution. CT/CT angio chest PE protocol 1. No central pulmonary embolus identified. However, assessment of much of the segmental and subsegmental vasculature is significantly limited due to respiratory motion artifact, and therefore emboli at these levels cannot be excluded. 2. Mild cardiomegaly. 3. Cholelithiasis. CT/CT head/brain wo IV con No acute intracranial pathology. Chronic small vessel ischemic disease and volume loss. ED course: ? The patient was given diltiazem 25 mg IV push and started on a diltiazem drip.? He received apixaban 5 mg.? Ceftriaxone 1 g. ? He was placed on BiPAP.? Review of Systems Review of Systems: Yes Unobtainable due to mental condition and Unobtainable due to mental status PMFSH Past Medical History Medical History Unsteady gait HTN (hypertension) CKD (chronic kidney disease) Alcoholism Anemia Social History Social History Household Members: Other Household Members Other:: faclity Housing: Detention Do you presently have visiting nurse or other home services: Yes (detention per pt) Unable to assess alcohol history related to: Unable to respond Patient Tobacco Use Status: Never used Tobacco Use of substances other than those prescribed or required for medical reasons: Unable to respond Advance Directives: No Advance Directives Information Provided: No Do you have thoughts of harming others: None Do you have a plan to hurt others: No Plan Recently lost weight without trying: Unsure Nutrition Risks: On aspiration precautions Current occupational status: retired Meds Allergies Allergy/AdvReac Type Severity Reaction Status Date / Time No Known Allergies Allergy Verified 04/07/22 18:25 Active Medications: Current Medications Diltiazem HCl 125 mg/ Sodium (Chloride) 125 mls @ 0 mls/hr IVCONT .Q0M LILIANA; Protocol Last Admin: 06/12/23 03:19 Dose: 5 mg/hr, 5 mls/hr Home Medications Medication Instructions Recorded Confirmed Last Taken Type acamprosate 333 mg tablet,delayed 2 tab PO BID 04/08/22 04/08/22 04/07/22 History release albuterol sulfate 90 mcg/actuation 2 puff inhalation Q4H PRN Wheezing 04/08/22 04/08/22 Unknown History aerosol inhaler (ProAir HFA) amlodipine 2.5 mg tablet 1 tab PO DAILY 04/08/22 04/08/22 04/07/22 History ammonium lactate 12 % lotion 1 applic topical BID 04/08/22 04/08/22 04/06/22 History aspirin 81 mg tablet,delayed 81 mg PO DAILY 04/08/22 04/08/22 04/07/22 History release atorvastatin 20 mg tablet 1 tab PO DAILY 04/08/22 04/08/22 04/07/22 History cholecalciferol (vitamin D3) 25 25 mcg PO DAILY 04/08/22 04/08/22 04/07/22 History mcg (1,000 unit) tablet diclofenac sodium 1 % topical gel 1 g topical Q6H PRN Pain 04/08/22 04/08/22 Unknown History gabapentin 600 mg tablet 1 tab PO TID 04/08/22 04/08/22 04/07/22 History loperamide 2 mg capsule 2 mg PO Q8H PRN Diarrhea 04/08/22 04/08/22 04/07/22 History ondansetron HCl 4 mg tablet 1 tab PO Q6H PRN Nausea And 04/08/22 04/08/22 04/07/22 History Vomiting oxycodone 5 mg tablet 1 tab PO BID PRN Pain 04/08/22 04/08/22 04/06/22 History polyvinyl alcohol 1.4 % eye drops 1 drp ophthalmic (eye) BID 04/08/22 04/08/22 04/07/22 History (Artificial Tears (polyvinyl alcohol)) sertraline 100 mg tablet 1 tab PO DAILY 04/08/22 04/08/22 04/07/22 History tamsulosin 0.4 mg capsule 1 cap PO BEDTIME 04/08/22 04/08/22 04/06/22 History thiamine HCl (vitamin B1) 100 mg 100 mg PO DAILY 04/08/22 04/08/22 04/07/22 History tablet trazodone 100 mg tablet 1 tab PO BEDTIME 04/08/22 04/08/22 04/07/22 History Physical Exam Vital Signs: Vital Signs: Last Vital Signs Temp 97.3 F 06/12/23 03:00 Pulse 90 06/12/23 03:00 Resp 16 06/12/23 03:57 BP 165/70 H 06/12/23 03:00 Pulse Ox 94 06/12/23 03:00 O2 Del Method BiPAP 06/12/23 03:00 O2 Flow Rate 4 06/11/23 21:50 FiO2 40 06/12/23 03:52 BMI result Body Mass Index 61.7 Const: General: patient obtunded Nutritional Appearance: obese Orientation/consciousness: patient obtunded HEENT: Head: Yes normocephalic and Yes atraumatic General nose exam: Normal external nose present (Nares patent, septum midline, sinuses nontender bilaterally.) Neck: Neck: Yes supple (no thyromegaly, trachea midline.) Resp: Auscultation: diminished lung sounds Cardio: Jugular venous distension: no JVD Rhythm: abnormal rhythm GI: Palpation (GI): Soft to palpation (nondistended.) and nontender Skin: General skin exam: crusts, dry skin, lichenification and striae Lesions: no lesions Rashes: no rashes Wounds: no wounds Nails: yellow and thickened Neuro: General: patient obtunded Extrem: General: Yes edema and Yes venous stasis dermatitis Left upper extremity: edema Results Labs 06/11/23 21:17 06/11/23 21:17 Labs: Laboratory Results - last 24 hr 06/11/23 06/11/23 06/11/23 20:45 21:17 21:23 MCV 84.1 MCH 25.4 L MCHC 30.2 L RDW 15.6 Plt Count 259 MPV 8.7 L Immature Gran % (Auto) 0.5 H Neut % (Auto) 89.7 H Lymph % (Auto) 4.5 L [place] % (Auto) 4.9 Eos % (Auto) 0.2 Baso % (Auto) 0.2 Lymph # (Auto) 0.7 L [place] # (Auto) 0.7 Eos # (Auto) 0.0 Baso # (Auto) 0.0 Abs Immat Gran (auto) 0.08 H Absolute Neuts (auto) 13.3 H Absolute Nucleated RBC 0.000 Nucleated RBC % (auto) 0.0 PT 11.2 INR 0.9 APTT 33.5 D-Dimer High Sensitivty 278 VBG pH 7.21 L VBG pCO2 83 VBG pO2 46 VBG HCO3 33 H VBG O2 Saturation 66.0 VBG Base Excess 2.2 Anion Gap 14 Estim Creat Clear Calc 81.6 Estimated GFR > 60 Random Glucose 154 H Lactic Acid 1.0 Calcium 9.8 D Magnesium 1.9 Total Bilirubin 0.5 AST 17 ALT 14 Alkaline Phosphatase 98 B-Natriuretic Peptide 57 Total Protein 8.0 Albumin 3.8 Urine Color Urine Appearance Urine pH Ur Specific [place] Urine Protein Urine Glucose (UA) Urine Ketones Urine Blood Urine Nitrite Ur Leukocyte Esterase Urine RBC Urine WBC Ur Squamous Epith Cells Urine Bacteria Hyaline Casts Urine Opiates Screen Urine Fentanyl Screen Ur Barbiturates Screen Ur Phencyclidine Scrn Ur Amphetamines Screen U Benzodiazepines Scrn Urine Cocaine Screen U Marijuana (THC) Screen Influenza Type A (PCR) NEGATIVE Influenza Type B (PCR) NEGATIVE RSV RNA Qual (PCR) NEGATIVE SARS-CoV-2 RNA (RT-PCR) NEGATIVE 06/11/23 06/12/23 06/12/23 23:52 01:46 03:28 MCV MCH MCHC RDW Plt Count MPV Immature Gran % (Auto) Neut % (Auto) Lymph % (Auto) [place] % (Auto) Eos % (Auto) Baso % (Auto) Lymph # (Auto) [place] # (Auto) Eos # (Auto) Baso # (Auto) Abs Immat Gran (auto) Absolute Neuts (auto) Absolute Nucleated RBC Nucleated RBC % (auto) PT INR APTT D-Dimer High Sensitivty VBG pH 7.24 L 7.22 L VBG pCO2 69 79 VBG pO2 53 42 VBG HCO3 30 H 33 H VBG O2 Saturation 78.0 63.0 VBG Base Excess 1.1 2.0 Anion Gap Estim Creat Clear Calc Estimated GFR Random Glucose Lactic Acid Calcium Magnesium Total Bilirubin AST ALT Alkaline Phosphatase B-Natriuretic Peptide Total Protein Albumin Urine Color Yellow Urine Appearance Clear Urine pH 5.5 Ur Specific [place] >= 1.030 H Urine Protein 100 (2+) H Urine Glucose (UA) Negative Urine Ketones Negative Urine Blood Small (1+) H Urine Nitrite Negative Ur Leukocyte Esterase Negative Urine RBC 0-2 Urine WBC 0-5 Ur Squamous Epith Cells 3-5 Urine Bacteria None Seen Hyaline Casts 11-20 Urine Opiates Screen Not Detected Urine Fentanyl Screen Not Detected Ur Barbiturates Screen Not Detected Ur Phencyclidine Scrn Not Detected Ur Amphetamines Screen Not Detected U Benzodiazepines Scrn Not Detected Urine Cocaine Screen Not Detected U Marijuana (THC) Screen Not Detected Influenza Type A (PCR) Influenza Type B (PCR) RSV RNA Qual (PCR) SARS-CoV-2 RNA (RT-PCR) Imaging Radiologist's Impressions: Impressions Chest X-Ray 06/11/23 20:32 IMPRESSION: Slightly enlarged cardiac silhouette and question pulmonary venous redistribution. Head CT 06/11/23 22:31 IMPRESSION: No acute intracranial pathology. Chronic small vessel ischemic disease and volume loss. Chest CTA 06/12/23 00:25 IMPRESSION: 1. No central pulmonary embolus identified. However, assessment of much of the segmental and subsegmental vasculature is significantly limited due to respiratory motion artifact, and therefore emboli at these levels cannot be excluded. 2. Mild cardiomegaly. 3. Cholelithiasis. VTE: negative. Assessment and Plan (1) Acute on chronic respiratory failure with hypoxia and hypercapnia: Status: Acute (2) Atrial fibrillation with rapid ventricular response: Status: Acute (3) Hypoxia: Status: Acute Plan Assessment: 77-year-old male with a past medical history of hypertension, hyperlipidemia, CKD, anemia, alcohol abuse, anxiety, depression, and BPH admitted with new onset AFib? and acute hypercapnic respiratory failure with hypoxia. Plan: Neuro: ? Metabolic encephalopathy Cardiac: New onset AFib with RVR.? History of hypertension. Rate controlled with? diltiazem gtt.? Eliquis.? Echo? in a.m. Pulmonary: Acute respiratory failure with hypercapnia likely due to poor perfusion. Continue BiPAP. Monitor VBG. Renal: ? No acute issues. Endo:? No acute issues.? GI:? No acute issues. ID:? No acute issues. Heme/Onc:? No acute issues. Psych:? No acute issues. Prophylaxis:? Eliquis/pneumatic hoses Diet:? NPO? Time Spent With Patient Time: Total time managing care of this patient today ____ minutes.
[2023-06-12 04:27] LABS: Venous Blood Gas Refer to POC result
[2023-06-12] MEDS: acetaZOLAMIDE sodium 500 MG VIAL 250 MG IVPUSH (05:36)
[2023-06-12] MEDS: Furosemide 40 MG/4 ML VIAL IVPUSH (05:36)
[2023-06-12 05:42] LABS: Sodium Urine Random < 20.0 mmol/L
[2023-06-12] MEDS: Digoxin 0.5 MG/2 ML AMPUL 0.25 MG IVPUSH (05:42)
[2023-06-12 06:50] LABS: MANUAL DIFF FLAG NO
[2023-06-12 06:52] LABS: Basophils Percent Auto 0.2 % (0-2); Eosinophils Percent Auto 0.2 % (0-4); Hematocrit 45.4 % (42.0-52.0); Hemoglobin 13.8 g/dl (14.0-18.0); Imm Gran Abs Auto 0.04 X10*3/uL (0.00-0.03); Imm Gran Pct Auto 0.3 % (0.0-0.4); Lymphocytes Absolute Auto 0.7 X10*3/uL (1.2-4.9); Lymphocytes Percent Auto 5.8 % (20-40); Mean Corpuscular HGB Conc 30.4 g/dl (31.0-36.0); Mean Corpuscular Hemoglobin 25.5 pg (27.0-33.0); Mean Corpuscular Volume 83.9 fL (80.0-98.0); Mean Platelet Volume 8.8 fL (9.4-12.4); Monocytes Absolute Auto 1.2 X10*3/uL (0.1-1.2); Monocytes Percent Auto 9.9 % (2-11); Neutrophils Absolute Auto 10.3 x10*3/uL (2.0-8.3); Neutrophils Percent Auto 83.6 % (45-73); Platelet Count 212 X10*3/uL (160-400); Red Blood Count 5.41 X10*6/uL (4.60-5.80); Red Cell Distribution Width 15.6 % (11.0-16.0); White Blood Count 12.3 X10*3/uL (4.8-10.8)
[2023-06-12 06:53] LABS: Venous Blood Gas Refer to POC result
[2023-06-12 06:55] LABS: VBG Base Excess 5.6 mmol/L; VBG HCO3 34 mmol/L (22-26); VBG pCO2 66 mmHg; VBG pH 7.32 (7.32-7.43); VBG pO2 56 mmHg
--- NOTE | 2023-06-12 07:00 | CA_ITS ---
Transthoracic Echocardiogram Patient (Last, First, Middle): Pj Funes, Gender: Male Date of : 1945 Age: 77 Procedure Date: 06/12/2023 Procedure Type: Transthoracic Echocardiogram Location: ICU Height: 177.8 cm Weight: 186.43 kg BSA: 2.83 m2 Heart Rate: bpm BP: 107 / 67 mmHg Gold Cutter: SB Referring MD: Oscar Rodríguez MD Pump Servicer Helper: Brett Cantor MD Symptoms: CHF LV/RV fx. Study Quality: Technically Difficult ECG Rhythm: Atrial Fibrillation Conclusions: - 1. Technically poor study due to body habitus and lung artifact 2. After contrast use LV ejection fraction appears to be within normal limits with LVEF of 65-70% Findings Procedure Information Contrast agent, definity, is being given per protocol without apparent complications. The quality of the study was technically difficult. The study quality is limited by patients body habitus and lung artifact. Left Ventricle The left ventricle was not well visualized. The left ventricular systolic function is normal. The visually estimated ejection fraction is between 65 70%. Regional wall motion abnormalities can not be excluded due to suboptimal endocardial definition. Diastolic function is indeterminate on the basis of available data. Right Ventricle The right ventricle was not well visualized. Atria The left atrium was not well visualized. Interatrial shunt cannot be excluded. The right atrium was not well visualized. Aortic Valve The aortic valve was not well visualized. There is no aortic valve stenosis. Mitral Valve The mitral valve was not well visualized. Pulmonic Valve The pulmonic valve was not well visualized. Tricuspid Valve The tricuspid valve was not well visualized. Tricuspid regurgitation envelope is inadequate for calculation of right ventricular systolic pressure. Great Vessels The pulmonary artery was not well visualized. There is mild dilatation of the ascending aorta. Venous The inferior vena cava is moderately dilated. Pericardium/Pleural The pericardium was not well visualized. Prior Study Comparison No prior study available for comparison. Measurements 2D Linear Measurements LVOT Diam: 2.30 3.0+(-)1.3 cm 2D Systolic Function EF 4C: 69.40 >55% EF 2C: 74.10 >55% EF BiP: 72.20 >55% Aortic Valve AoV Pk Nir: 1.22 AoV Pk Grad: 6.00 SOHEILA: 3.78 LVOT LVOT Pk Nir: 1.11 LVOT Mn Nir: 0.75 LVOT VTI: 0.21 LVOT Pk Grad: 5.00 LVOT Mn Grad: 3.00 LVOT Diam: 2.30 LVOT Area: 4.15 Right Ventricle TVS' Nir: 16.30 Tricuspid Valve RA Press: 15.00 Great Vessels Aorta Sinus of Valsalva: 3.90 2.0-3.5 cm Ao Asc: 3.90 2.1-3.4 cm Pulmonary Valve PV Pk Nir: 0.85 Peak PV Grad: 3.00 Updated in Other Vendor System with Status of Final Brett Cantor MD electronically signed on 06/12/2023 11:16:44 AM with status of Final
--- NOTE | 2023-06-12 07:00 | PC.NURSE ---
Pt admitted to ICU at approx 0300 from ED. Upon initial assessment- pt obtunded, responds to repeated tactile stimuli, moans, does not follow commands. Afebrile. Afib on tele, HR 80-100s, cardizem gtt infusing and titrated per OCT. +3/4 BLE edema. Given Lasix 40 mg and Diamox 250 mg IVP x1 with good effect. Tolerating BiPAP well- on 18//24%. Desaturates easily with repositioning and recovers slow. NPO. Key in place, UOP as charted. No BM. Skin overall intact, blanchable redness to coccyx. Repositioned in bed q2hr, bed locked in low position.
[2023-06-12 07:07] LABS: Anion Gap 13 (12-20); Blood Urea Nitrogen 10 mg/dL (9-16); Calcium 9.4 mg/dL (8.4-10.2); Carbon Dioxide 29 mmol/L (22-29); Chloride 94 mmol/L (96-108); Creatinine Clr Calc Pharmacy 159.6; Estimated Glomerular Filt Rate > 60; Glucose Random 123 mg/dL (60-115); Potassium 4.9 mmol/L (3.3-5.1); Sodium 131 mmol/L (135-145)
--- NOTE | 2023-06-12 07:27 | PM.CCPN ---
Subjective Subjective Date of Service: 06/12/23 Interval History: 77-year-old morbidly obese male a known hypertensive who about a year ago also had COVID-19 presents with altered mental status from group home with 4+ anasarca and noted to be an acute on chronic hypercapnic respiratory failure and chest CT scan imaging failed to reveal infiltrate or pleural effusion but my bedside echo did document that LV function seem well preserved with no pericardial or primary valve disease but a prominent right ventricle with IVC dilatation indicating probably acute on chronic cor pulmonale so we a collected for noninvasive ventilation which showed brought down his acute pCO2 from the mid 80s to the mid 60s that was successful producing urine output for us and then we noticed significant hyponatremia and hyperkalemia and not impossible this could represent form of renal tubular acidosis but I can I can not rule out relative hypoadrenalism some sending off serum cortisol and thyroid function supporting him with with a BiPAP device and probably hasten his diuresis with a combination of Lasix and Diamox in this particular case CT angiography is negative for pulmonary embolism I sent a urine sodium which was less than 20 and I think that confirms my feeling about a low-flow state with appropriate ADH in all likelihood as the primary cause of the hyponatremia and maybe even to some degree besides the hypercarbia also contributing to mental status Critical Care Time (minutes): 45 Physical Exam Vital Signs: Vital Signs: Last Vital Signs Temp 97.3 F 06/12/23 03:00 Pulse 79 06/12/23 07:00 Resp 17 06/12/23 07:00 BP 107/67 06/12/23 07:00 Pulse Ox 95 06/12/23 07:00 O2 Del Method BiPAP 06/12/23 07:00 O2 Flow Rate 4 06/11/23 21:50 FiO2 30 06/12/23 07:00 BMI result Body Mass Index 59.1 marked anasarca very lethargic difficult to arouse on BiPAP but pCO2 is down to the 60s pH up to 7.32 hopefully will start to show signs of improvement 4+ anasarca lungs without adventitious sounds cardiac exam by echo showing normal LV size and function normal mitral and aortic valve but prominent right heart and and IVC distension consistent with cor pulmonale Objective Data Labs 06/12/23 06:45 06/12/23 06:45 Labs: Laboratory Results - last 24 hr 06/11/23 06/11/23 06/11/23 20:45 21:17 21:23 WBC 14.8 H RBC 5.71 Hgb 14.5 Hct 48.0 MCV 84.1 MCH 25.4 L MCHC 30.2 L RDW 15.6 Plt Count 259 MPV 8.7 L Immature Gran % (Auto) 0.5 H Neut % (Auto) 89.7 H Lymph % (Auto) 4.5 L [place] % (Auto) 4.9 Eos % (Auto) 0.2 Baso % (Auto) 0.2 Lymph # (Auto) 0.7 L [place] # (Auto) 0.7 Eos # (Auto) 0.0 Baso # (Auto) 0.0 Abs Immat Gran (auto) 0.08 H Absolute Neuts (auto) 13.3 H Absolute Nucleated RBC 0.000 Nucleated RBC % (auto) 0.0 PT 11.2 INR 0.9 APTT 33.5 D-Dimer High Sensitivty 278 VBG pH 7.21 L VBG pCO2 83 VBG pO2 46 VBG HCO3 33 H VBG O2 Saturation 66.0 VBG Base Excess 2.2 Sodium 132 L Potassium 5.2 H D Chloride 92 L Carbon Dioxide 31 H Anion Gap 14 BUN 10 Creatinine 0.75 Estim Creat Clear Calc 81.6 Estimated GFR > 60 Random Glucose 154 H Lactic Acid 1.0 Calcium 9.8 D Magnesium 1.9 Total Bilirubin 0.5 AST 17 ALT 14 Alkaline Phosphatase 98 Troponin I High Sens < 2.7 B-Natriuretic Peptide 57 Total Protein 8.0 Albumin 3.8 Urine Color Urine Appearance Urine pH Ur Specific [place] Urine Protein Urine Glucose (UA) Urine Ketones Urine Blood Urine Nitrite Ur Leukocyte Esterase Urine RBC Urine WBC Ur Squamous Epith Cells Urine Bacteria Hyaline Casts Ur Random Sodium Urine Opiates Screen Urine Fentanyl Screen Ur Barbiturates Screen Ur Phencyclidine Scrn Ur Amphetamines Screen U Benzodiazepines Scrn Urine Cocaine Screen U Marijuana (THC) Screen Influenza Type A (PCR) NEGATIVE Influenza Type B (PCR) NEGATIVE RSV RNA Qual (PCR) NEGATIVE SARS-CoV-2 RNA (RT-PCR) NEGATIVE 06/11/23 06/11/23 06/12/23 23:49 23:52 01:46 WBC RBC Hgb Hct MCV MCH MCHC RDW Plt Count MPV Immature Gran % (Auto) Neut % (Auto) Lymph % (Auto) [place] % (Auto) Eos % (Auto) Baso % (Auto) Lymph # (Auto) [place] # (Auto) Eos # (Auto) Baso # (Auto) Abs Immat Gran (auto) Absolute Neuts (auto) Absolute Nucleated RBC Nucleated RBC % (auto) PT INR APTT D-Dimer High Sensitivty VBG pH 7.24 L VBG pCO2 69 VBG pO2 53 VBG HCO3 30 H VBG O2 Saturation 78.0 VBG Base Excess 1.1 Sodium Potassium Chloride Carbon Dioxide Anion Gap BUN Creatinine Estim Creat Clear Calc Estimated GFR Random Glucose Lactic Acid Calcium Magnesium Total Bilirubin AST ALT Alkaline Phosphatase Troponin I High Sens 4.6 D B-Natriuretic Peptide Total Protein Albumin Urine Color Yellow Urine Appearance Clear Urine pH 5.5 Ur Specific [place] >= 1.030 H Urine Protein 100 (2+) H Urine Glucose (UA) Negative Urine Ketones Negative Urine Blood Small (1+) H Urine Nitrite Negative Ur Leukocyte Esterase Negative Urine RBC 0-2 Urine WBC 0-5 Ur Squamous Epith Cells 3-5 Urine Bacteria None Seen Hyaline Casts 11-20 Ur Random Sodium Urine Opiates Screen Not Detected Urine Fentanyl Screen Not Detected Ur Barbiturates Screen Not Detected Ur Phencyclidine Scrn Not Detected Ur Amphetamines Screen Not Detected U Benzodiazepines Scrn Not Detected Urine Cocaine Screen Not Detected U Marijuana (THC) Screen Not Detected Influenza Type A (PCR) Influenza Type B (PCR) RSV RNA Qual (PCR) SARS-CoV-2 RNA (RT-PCR) 06/12/23 06/12/23 06/12/23 03:28 05:23 06:45 WBC 12.3 H RBC 5.41 Hgb 13.8 L Hct 45.4 MCV 83.9 MCH 25.5 L MCHC 30.4 L RDW 15.6 Plt Count 212 MPV 8.8 L Immature Gran % (Auto) 0.3 Neut % (Auto) 83.6 H Lymph % (Auto) 5.8 L [place] % (Auto) 9.9 Eos % (Auto) 0.2 Baso % (Auto) 0.2 Lymph # (Auto) 0.7 L [place] # (Auto) 1.2 Eos # (Auto) 0.0 Baso # (Auto) 0.0 Abs Immat Gran (auto) 0.04 H Absolute Neuts (auto) 10.3 H Absolute Nucleated RBC 0.000 Nucleated RBC % (auto) 0.0 PT INR APTT D-Dimer High Sensitivty VBG pH 7.22 L VBG pCO2 79 VBG pO2 42 VBG HCO3 33 H VBG O2 Saturation 63.0 VBG Base Excess 2.0 Sodium 131 L Potassium 4.9 Chloride 94 L Carbon Dioxide 29 Anion Gap 13 BUN 10 Creatinine 0.67 Estim Creat Clear Calc 159.6 Estimated GFR > 60 Random Glucose 123 H Lactic Acid Calcium 9.4 Magnesium 2.0 Total Bilirubin AST ALT Alkaline Phosphatase Troponin I High Sens B-Natriuretic Peptide Total Protein Albumin Urine Color Urine Appearance Urine pH Ur Specific [place] Urine Protein Urine Glucose (UA) Urine Ketones Urine Blood Urine Nitrite Ur Leukocyte Esterase Urine RBC Urine WBC Ur Squamous Epith Cells Urine Bacteria Hyaline Casts Ur Random Sodium < 20.0 Urine Opiates Screen Urine Fentanyl Screen Ur Barbiturates Screen Ur Phencyclidine Scrn Ur Amphetamines Screen U Benzodiazepines Scrn Urine Cocaine Screen U Marijuana (THC) Screen Influenza Type A (PCR) Influenza Type B (PCR) RSV RNA Qual (PCR) SARS-CoV-2 RNA (RT-PCR) 06/12/23 06:48 WBC RBC Hgb Hct MCV MCH MCHC RDW Plt Count MPV Immature Gran % (Auto) Neut % (Auto) Lymph % (Auto) [place] % (Auto) Eos % (Auto) Baso % (Auto) Lymph # (Auto) [place] # (Auto) Eos # (Auto) Baso # (Auto) Abs Immat Gran (auto) Absolute Neuts (auto) Absolute Nucleated RBC Nucleated RBC % (auto) PT INR APTT D-Dimer High Sensitivty VBG pH 7.32 VBG pCO2 66 VBG pO2 56 VBG HCO3 34 H VBG O2 Saturation 85.0 VBG Base Excess 5.6 Sodium Potassium Chloride Carbon Dioxide Anion Gap BUN Creatinine Estim Creat Clear Calc Estimated GFR Random Glucose Lactic Acid Calcium Magnesium Total Bilirubin AST ALT Alkaline Phosphatase Troponin I High Sens B-Natriuretic Peptide Total Protein Albumin Urine Color Urine Appearance Urine pH Ur Specific [place] Urine Protein Urine Glucose (UA) Urine Ketones Urine Blood Urine Nitrite Ur Leukocyte Esterase Urine RBC Urine WBC Ur Squamous Epith Cells Urine Bacteria Hyaline Casts Ur Random Sodium Urine Opiates Screen Urine Fentanyl Screen Ur Barbiturates Screen Ur Phencyclidine Scrn Ur Amphetamines Screen U Benzodiazepines Scrn Urine Cocaine Screen U Marijuana (THC) Screen Influenza Type A (PCR) Influenza Type B (PCR) RSV RNA Qual (PCR) SARS-CoV-2 RNA (RT-PCR) Progress Note: A&P Assessment and plan (1) Acute on chronic respiratory failure with hypoxia and hypercapnia: Status: Acute (2) Atrial fibrillation with rapid ventricular response: Status: Acute (3) Nausea & vomiting: Status: Acute (4) COVID-19: Status: Acute (5) Hypoxia: Status: Acute (6) CRP elevated: Status: Acute (7) Cor pulmonale: Status: Acute (8) Hypertensive 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: Status: Acute (9) Encephalopathy acute: Status: Acute Plan plan is to persist with the noninvasive ventilation and will assist with combined diuretic therapy check thyroid function and serum cortisol Quality Stroke Does the patient have a stroke diagnosis?: No VTE Prior VTE?: No VTE Risk Level:: Medical - moderate - high VTE Device Contraindication: N/A - Device Ordered VTE Drug Contraindication: Treatment Not Indicated
--- NOTE | 2023-06-12 07:58 | PHA.MEDREC ---
Pharmacy Consult ? Medication Reconciliation Pharmacy has completed the medication reconciliation.MED REC COMPLETE USING LIST FROM [facility] AND [facility]
[2023-06-12] MEDS: vancomycin/NS 2,000 MG/500 ML PLAST..BAG 250 MG IV (09:23)
--- NOTE | 2023-06-12 09:36 | MHC.CM.PN ---
Pt currently admitted to ICU on BiPAP. Patient is LTC at [facility]. This CM attempted to call pts brother/HCP, Miguel, however phone number is out of service. Requested alternate phone number from facility. Also called pts son, CORA Alford. IMM delivered via telephone message. DP: Return to [facility] via BLS. CM will continue to follow.
[2023-06-12 09:48] LABS: TSH reflex Free T4 1.93 uIU/mL (0.32-4.0)
[2023-06-12 09:50] LABS: Cortisol Random 14.6 ug/dL
--- NOTE | 2023-06-12 11:45 | PC.RT ---
pt off bipap to 3 lpm etco2 n/c. Pt awake and coop, laura well. RN/MD aware.
[2023-06-12 11:50] LABS: MRSA Nasal PCR NEGATIVE (Negative); SA Nasal PCR NEGATIVE (Negative)
[2023-06-12 17:32] LABS: Glucose, Whole Blood 172 mg/dL (60-115)
[2023-06-12] MEDS: vancomycin HCL 1,500 MG in 0.9 % Sodium Chloride 500 ML 333.33 MG IV (20:12)
[2023-06-12] MEDS: Acetaminophen 325 MG TABLET 650 MG PO (20:14)
[2023-06-12] MEDS: Melatonin 3 MG TABLET 6 MG PO (20:14)
[2023-06-12 20:57] LABS: Glucose, Whole Blood 93 mg/dL (60-115)
[2023-06-13] VITALS (31 sets, daily range): BP systolic 88–161; BP diastolic 44–94; PULSE 69–147; RESP 13–31; TEMP 28.1–36.9; O2SAT 93–100; BMI 57.6
[2023-06-13 04:53] LABS: VBG Base Excess 10.7 mmol/L; VBG HCO3 38 mmol/L (22-26); VBG pCO2 63 mmHg; VBG pH 7.39 (7.32-7.43); VBG pO2 43 mmHg; Venous Blood Gas Refer to POC result
[2023-06-13 05:41] LABS: MANUAL DIFF FLAG NO
[2023-06-13 05:47] LABS: Basophils Percent Auto 0.3 % (0-2); Eosinophils Absolute Auto 0.1 X10*3/uL (0.0-0.4); Eosinophils Percent Auto 0.7 % (0-4); Hematocrit 42.3 % (42.0-52.0); Hemoglobin 12.7 g/dl (14.0-18.0); Imm Gran Abs Auto 0.06 X10*3/uL (0.00-0.03); Imm Gran Pct Auto 0.6 % (0.0-0.4); Lymphocytes Absolute Auto 0.9 X10*3/uL (1.2-4.9); Lymphocytes Percent Auto 9.6 % (20-40); Mean Corpuscular Hemoglobin 25.4 pg (27.0-33.0); Mean Corpuscular Volume 84.6 fL (80.0-98.0); Mean Platelet Volume 9.6 fL (9.4-12.4); Monocytes Percent Auto 10.3 % (2-11); Neutrophils Absolute Auto 7.5 x10*3/uL (2.0-8.3); Neutrophils Percent Auto 78.5 % (45-73); Platelet Count 229 X10*3/uL (160-400); Red Cell Distribution Width 15.2 % (11.0-16.0); White Blood Count 9.6 X10*3/uL (4.8-10.8)
[2023-06-13 06:03] LABS: Anion Gap 12 (12-20); Blood Urea Nitrogen 8 mg/dL (9-16); Calcium 8.8 mg/dL (8.4-10.2); Carbon Dioxide 31 mmol/L (22-29); Chloride 95 mmol/L (96-108); Estimated Glomerular Filt Rate > 60; Glucose Random 115 mg/dL (60-115); Magnesium 1.8 mg/dL (1.6-2.6); Phosphorus 3.1 mg/dL (2.7-4.5); Sodium 134 mmol/L (135-145)
[2023-06-13 08:18] LABS: Glucose, Whole Blood 139 mg/dL (60-115)
[2023-06-13 08:58] LABS: Estimated Average Glucose 146 mg/dL; Hemoglobin A1c % 6.7 % (<6.0)
[2023-06-13] MEDS: Furosemide 200 MG in 0.9 % Sodium Chloride 80 ML IVCONT (09:13)
--- NOTE | 2023-06-13 10:14 | P.CONCA_ITS ---
History of Present Illness History of Present Illness Date of Service: 06/13/23 Requesting physician: Oscar Rodríguez Consult reason: atrial fibrillation and congestive heart failure Chief complaint: Acute respiratory failure Narrative: I was consulted to see Edward in cardiology consultation today for atrial fibrillation what appears to be significant right heart failure with cor pulmonale. Patient admitted yesterday, brought from longterm for shortness of breath and tachycardia with marked hypoxemia. Patient was frothing and obtunded. Patient was noted to be in acute respiratory failure marked hypercarbia and subsequently was put on BiPAP therapy. Patient subsequently woke up but remains in atrial fibrillation. His atrial fibrillation is new compared to his admission from March. He has prior history of hypertension, hyperlipidemia, chronic kidney disease, alcohol abuse anxiety, morbid obesity and what appears to be most likely Pickwickian syndrome and possibly undiagnosed/untreated sleep apnea. Patient improved mental status with BiPAP therapy and reduction in CO2. Patient's BNP are within normal limits. Patient denies any palpitation irregular heartbeat of feeling of rapid heart rate. Has had progressive shortness of breath. Minimally functional mostly sedentary and then a long-term facility. He is noted to be markedly volume overloaded with significant fluid buildup in both his lower extremity and abdomen although fluid and right-sided pressure assessments are difficult given his body habitus. His CTA chest for PE protocol was negative but shows cardiomegaly. Echocardiogram done at bedside was of very poor quality but showed preserved LV ejection fraction but rest of the cardiac structures not able to be evaluated. Echocardiogram done bedside by Dr. Rodríguez showed plethoric IVC. Review of Systems 2 Constitutional: Constitutional: Reports no additional constitutional complaints Eyes: Eyes: Reports no additional eye complaints Cardiovascular: Cardiovascular: Denies chest pain, Reports leg edema, Denies lightheadedness, Denies Loss of Consciousness, Denies palpitations and Reports dyspnea Respiratory: Respiratory: Denies cough, Reports dyspnea and Denies wheezing Gastrointestinal: Gastrointestinal: Reports no additional gastrointestinal complaints Psychiatric: Psychiatric: Reports no additional psychiatric complaints Endocrine: Endocrine: Denies palpitations Allergic/Immunologic: Allergic/Immunologic: Denies wheezing PMFSH Past Medical History Medical History Unsteady gait HTN (hypertension) CKD (chronic kidney disease) Alcoholism Anemia Social History Social History Household Members: Other Household Members Other:: faclity Housing: Intermediate Do you presently have visiting nurse or other home services: Yes (longterm per pt) Unable to assess alcohol history related to: Unable to respond Patient Tobacco Use Status: Never used Tobacco Use of substances other than those prescribed or required for medical reasons: Unable to respond Currently Displaying Signs/Symptoms of Drug Intoxication Withdrawal: No Advance Directives: No Advance Directives Information Provided: No Do you have thoughts of harming others: None Do you have a plan to hurt others: No Plan Recently lost weight without trying: Unsure Nutrition Risks: On aspiration precautions service: No Current occupational status: retired Meds Allergies Allergy/AdvReac Type Severity Reaction Status Date / Time No Known Allergies Allergy Verified 04/07/22 18:25 Active Medications: Current Medications Dextrose (Dextrose 50 % 25 Gm/50 Ml Syringe) 25 gm IVPUSH Q15M PRN; Protocol PRN Reason: per Hypoglycemia Standing Ord. Glucose (Glucose Gel 15 Gm Gel..Gram.) 15 gm PO Q15M PRN; Protocol PRN Reason: per Hypoglycemia Standing Ord. Furosemide 200 mg/ Sodium (Chloride) 100 mls @ 2.5 mls/hr IVCONT .Q24H [facility] Last Admin: 06/13/23 09:13 Dose: 5 mg/hr, 2.5 mls/hr Insulin Human Lispro (Insulin Lispro 100 Unit/Ml 3 Ml Vial) 0 unit SUBCUT QIDACHS [facility]; Protocol Last Admin: 06/13/23 09:13 Dose: Not Given Home Medications Medication Instructions Recorded Confirmed Last Taken Type albuterol sulfate 90 mcg/actuation 2 puff inhalation Q4H PRN Wheezing 04/08/22 06/12/23 Unknown History aerosol inhaler (ProAir HFA) amlodipine 2.5 mg tablet 1 tab PO DAILY 04/08/22 06/12/23 04/07/22 History aspirin 81 mg tablet,delayed 81 mg PO DAILY 04/08/22 06/12/23 04/07/22 History release atorvastatin 20 mg tablet 1 tab PO DAILY 04/08/22 06/12/23 04/07/22 History cholecalciferol (vitamin D3) 25 25 mcg PO DAILY 04/08/22 06/12/23 04/07/22 History mcg (1,000 unit) tablet diclofenac sodium 1 % topical gel 1 g topical Q6H PRN Pain 04/08/22 06/12/23 Unknown History gabapentin 600 mg tablet 600 mg PO TID 04/08/22 06/12/23 04/07/22 History oxycodone 5 mg tablet 1 tab PO BID PRN Pain 04/08/22 06/12/23 04/06/22 History polyvinyl alcohol 1.4 % eye drops 1 drp ophthalmic (eye) BID 04/08/22 06/12/23 04/07/22 History (Artificial Tears (polyvinyl alcohol)) sertraline 100 mg tablet 1 tab PO DAILY 04/08/22 06/12/23 04/07/22 History tamsulosin 0.4 mg capsule 1 cap PO BEDTIME 04/08/22 06/12/23 04/06/22 History thiamine HCl (vitamin B1) 100 mg 100 mg PO DAILY 04/08/22 06/12/23 04/07/22 History tablet trazodone 100 mg tablet 1 tab PO BEDTIME 04/08/22 06/12/23 04/07/22 History carbamide peroxide 6.5 % ear drops 5 drp otic (ears) BEDTIME 06/12/23 06/12/23 06/02/23 History (Debrox) furosemide 20 mg tablet (Lasix) 20 mg PO DAILY 06/12/23 06/12/23 Unknown History hydrocortisone 1 % topical cream 1 appl topical BID PRN DRY SKIN 06/12/23 06/12/23 Unknown History AND ITCHING ipratropium 0.5 mg-albuterol 3 mg 3 ml inhalation Q4H PRN Shortness 06/12/23 06/12/23 Unknown History (2.5 mg base)/3 mL nebulization Of Breath soln Physical Exam 2 Vital Signs: Vital Signs: Last Vital Signs Temp 97.9 F 06/13/23 08:00 Pulse 107 H 06/13/23 09:00 Resp 15 06/13/23 09:00 BP 113/63 06/13/23 09:00 Pulse Ox 96 06/13/23 09:00 O2 Del Method Nasal Cannula 06/13/23 09:00 O2 Flow Rate 3 06/13/23 09:00 FiO2 24 06/12/23 21:59 BMI result Body Mass Index 57.6 Const: General: cooperative, comfortable, alert and awake Nutritional Appearance: obese morbidly obese Orientation/consciousness: patient oriented x3 HEENT: Head: Yes normocephalic and Yes atraumatic Neck: Neck: Yes trachea midline, Yes supple and Yes other (Difficult to evaluate JVD) Resp: Effort & Inspection: decreased respiratory effort Auscultation: no crackles, no wheezes and diminished lung sounds Cardio: Rate: tachycardic Rhythm: abnormal rhythm irregularly irregular Heart sounds: S1 normal heart sound present and S2 normal heart sound present GI: Inspection: Yes Abdominal panniculus present and Yes obesity A uscultation: normal bowel sounds Skin: General skin exam: no rashes or lesions noted Neuro: General: patient oriented x3 and no focal motor deficits Extrem: General: No clubbing, No cyanosis and Yes edema (Marked edema) Objective Labs and Meds 06/13/23 04:41 06/13/23 04:41 Lab results: Laboratory Results - last 24 hr 06/12/23 06/12/23 06/12/23 04:47 17:26 20:53 WBC RBC Hgb Hct MCV MCH MCHC RDW Plt Count MPV Immature Gran % (Auto) Neut % (Auto) Lymph % (Auto) [place] % (Auto) Eos % (Auto) Baso % (Auto) Lymph # (Auto) [place] # (Auto) Eos # (Auto) Baso # (Auto) Abs Immat Gran (auto) Absolute Neuts (auto) Absolute Nucleated RBC Nucleated RBC % (auto) VBG pH VBG pCO2 VBG pO2 VBG HCO3 VBG O2 Saturation VBG Base Excess Sodium Potassium Chloride Carbon Dioxide Anion Gap BUN Creatinine Estim Creat Clear Calc Estimated GFR POC Glucose 172 H 93 Random Glucose Estimat Average Glucose Hemoglobin A1c % Calcium Phosphorus Magnesium Albumin Nasal Screen MRSA (PCR) NEGATIVE Nasal S. aureus Screen NEGATIVE Nasal MRSA/S.aureus Interp SEE NOTE 06/13/23 06/13/23 06/13/23 04:41 04:47 08:15 WBC 9.6 RBC 5.00 Hgb 12.7 L Hct 42.3 MCV 84.6 MCH 25.4 L MCHC 30.0 L RDW 15.2 Plt Count 229 MPV 9.6 Immature Gran % (Auto) 0.6 H Neut % (Auto) 78.5 H Lymph % (Auto) 9.6 L [place] % (Auto) 10.3 Eos % (Auto) 0.7 Baso % (Auto) 0.3 Lymph # (Auto) 0.9 L [place] # (Auto) 1.0 Eos # (Auto) 0.1 Baso # (Auto) 0.0 Abs Immat Gran (auto) 0.06 H Absolute Neuts (auto) 7.5 Absolute Nucleated RBC 0.000 Nucleated RBC % (auto) 0.0 VBG pH 7.39 VBG pCO2 63 VBG pO2 43 VBG HCO3 38 H VBG O2 Saturation 73.0 VBG Base Excess 10.7 Sodium 134 L Potassium 4.0 Chloride 95 L Carbon Dioxide 31 H Anion Gap 12 BUN 8 L Creatinine 0.66 Estim Creat Clear Calc 162.0 Estimated GFR > 60 POC Glucose 139 H Random Glucose 115 Estimat Average Glucose 146 Hemoglobin A1c % 6.7 H Calcium 8.8 D Phosphorus 3.1 Magnesium 1.8 Albumin 3.0 L Nasal Screen MRSA (PCR) Nasal S. aureus Screen Nasal MRSA/S.aureus Interp EKG shows atrial fibrillation with rapid ventricular response with nonspecific ST T wave changes Assessment and Plan (1) Acute on chronic respiratory failure with hypoxia and hypercapnia: Status: Acute Patient presents with acute mental status changes with acute respiratory failure with hypercapnia as well as hypoxemia related to significant comorbidities with morbid obesity in on treated/undiagnosed sleep apnea with probably marked restrictive pulmonary defect related to his obesity and causing Pickwickian syndrome. Clinically improved with BiPAP therapy but refusing further BiPAP therapy. Currently on oxygen therapy with oxygenation in regular range. Markedly fluid overloaded, see below. (2) Cor pulmonale: Status: Acute Patient with cor pulmonale with significant right heart failure finding despite normal BNP which is not unusual patient with super obesity. Most likely cause for his congestive heart failure is underlying chronic untreated pulmonary restriction due to morbid obesity as well as probably untreated sleep apnea causing Pickwickian syndrome RV strain and failure, echocardiogram transthoracic being of poor quality, with superimposed atrial fibrillation which appears to be new onset. At this point time I think his heart failure syndrome better managed by managing his rhythm and reestablishing AV synchrony. However unknown duration of atrial fibrillation precludes doing synchronized cardioversion without performing a WENDY. This was discussed with him. We discuss the need for WENDY to rule out intracardiac thrombi as well as followed by if no intracardiac thrombi synchronized cardioversion. We discussed the risks, benefits, alternatives to the procedure. Given his tenuous respiratory status he will require endotracheal intubation to protect his airways as well as to perform the procedure without any respiratory complications. This was discussed with Dr. Rodríguez who is in agreement. Once patient is intubated will proceed with WENDY guided cardioversion later today. WENDY will also help with further evaluation with cardiac structure which is poorly visualized on transthoracic echocardiogram due to his body habitus. Will most likely require antiarrhythmic drug support for maintenance of rhythm. Should be fully anticoagulated prior to the procedure with Eliquis. Requires aggressive diuresis. Agree with Lasix drip at 5 mg an hour and also would consider giving Diamox. Strict intake and output chart needs to be pursued. Had a very long discussion about prognosis associated with heart failure with him. He wants to pursue aggressive treatment approach. Will continue to follow with you. Greater than 45 minutes was spent in managing his complex care. Time Spent With Patient Time: Total time managing care of this patient today ____ minutes. Procedures Date of Service Date of Service: 06/13/23
--- NOTE | 2023-06-13 10:14 | CA_ITS ---
Transesophageal Echocardiogram Patient (Last, First, Middle): Pj Funes, Gender: Male Date of : 1945 Age: 77 Procedure Date: 06/13/2023 Procedure Type: Transesophageal Echocardiogram Location: ICU Height: 177.8 cm Weight: 181.89 kg BSA: 2.81 m2 Heart Rate: bpm BP: 112 / 44 mmHg [employer] Department Chair: CYRUS Referring MD: Brett Cantor MD Health Practice Manager: Brett Cantor MD Symptoms: Pre cardioversion to rule out intracardiac thrombi Study Quality: Fair ECG Rhythm: Atrial Fibrillation Conclusions: - 1. Normal LV ejection fraction with mild LVH 2. No intracardiac thrombi are or masses of agitation 3. No intracardiac shunting 4. Normal cardiac valvular Dopplers 5. Small pericardial effusion more prominent near the right-sided chambers Findings Procedure Information Consent was obtained prior to the procedure. Pre WENDY oral cavity was checked and revealed significant overcrowding. The adult 3D probe was passed with no difficulty. Left Ventricle Normal left ventricular size and systolic function. There is mildly increased left ventricular wall thickness. The visually estimated ejection fraction is between 60-65%. Diastolic function is indeterminate on the basis of available data. Right Ventricle Mildly increased right ventricular cavity size. There is low normal right ventricular systolic function. Atria The left atrium is mildly dilated. There is lipomatous hypertrophy of the interatrial septum. There is no evidence of interatrial shunt. The left atrium was without any clots or significant smoke formation. The left atrial appendage was visualized in multiple views without any significant evidence of smoke or clots. The left atrial appendage ejection velocity was preserved. The left upper, right upper and right lower pulmonary in drain normally into the left atrium. The right atrium is moderately dilated. The right atrial cavity was free of any significant thrombus. The SVC and IVC drain normally into the right atrium. Aortic Valve There is mild thickening of the aortic valve. There is no aortic valve stenosis. There is no evidence of a mass on the aortic valve. There is no aortic valve regurgitation. Mitral Valve There is mild anterior and posterior mitral leaflet thickening. There is trace mitral valve regurgitation. There is no mitral valve stenosis. There is no mass noted on the mitral valve. Pulmonic Valve Normal pulmonic valve structure and function. There is no mass noted on the pulmonic valve. Tricuspid Valve Normal tricuspid valve structure. There is trace tricuspid valve regurgitation. Great Vessels All visible segments of the aorta are normal in size. Large plaque is seen in the descending thoracic aorta. The visualized portions of the pulmonary artery and branches are normal. Pericardium/Pleural There is a small pericardial effusion. Updated in Other Vendor System with Status of Final Brett Cantor MD electronically signed on 06/18/2023 10:06:07 AM with status of Final
[2023-06-13] MEDS: propofoL 200 MG/20 ML VIAL IVPUSH (11:23)
[2023-06-13] MEDS: Rocuronium Bromide 50 MG/5 ML VIAL 75 MG IVPUSH (11:27)
[2023-06-13] MEDS: Metoprolol Tartrate 5 MG/5 ML VIAL 2 MG IVPUSH (11:41)
[2023-06-13] MEDS: Midazolam HCl/PF 2 MG/2 ML VIAL IVPUSH ×5 (12:02→15:00)
[2023-06-13 12:15] LABS: Glucose, Whole Blood 130 mg/dL (60-115)
[2023-06-13] MEDS: propofoL 1,000 MG/100 ML VIAL 21.85 MG IVCONT ×2 (12:30→15:29)
--- NOTE | 2023-06-13 12:39 | HO.CARDIVERS ---
Cardioversion Procedure Note Cardioversion Date of Procedure: Today Ordering Provider: Myself Performing Provider: Myself Indication for Procedure: New onset atrial fibrillation with heart failure Pre-Op Diagnosis: Same Post-Op Diagnosis: Same Performed with Transesophageal Echo: Yes WENDY findings (if WENDY Performed): Dictated separately weather no clear evidence of intracardiac thrombi History: See my consult note Consent: Verbal and Written consent was obtained from the patient before starting and after performing WENDY. The patient was made aware of the risk of synchronized cardioversion including benefits and alternatives Procedure: After consent obtained, cardioversion pads were attached in AP configuration and the patient was sedated by the anesthesia team. Once adequate sedation achieved, patient was delivered 200 joules of biphasic synchronized energy in anteroposterior configuration times 2 Complications: No Impression: Unsuccessful cardioversion Recommendations: 1. Start amiodarone loading, can start with IV loading. Complete loading with 400 mg b.i.d. for 2 weeks followed by synchronized cardioversion and can be done as outpatient. For now will pursue rate control 2. Fully anticoagulated with either Lovenox or Eliquis
[2023-06-13] MEDS: Norepinephrine Bitartrate/D5W 8 MG/250 ML PLAST..BAG 17.07 MG IV (13:09)
[2023-06-13] MEDS: Amiodarone/Dextrose 150 MG/100 ML PLAST..BAG 600 MG IV (13:42)
[2023-06-13] MEDS: Enoxaparin Sodium 150 MG/ML SYRINGE SUBCUT (13:44)
[2023-06-13] MEDS: Amiodarone HCL 900 MG in 0.9 % Sodium Chloride 500 ML 34.53 MG IVCONT (14:04)
[2023-06-13] MEDS: Chlorhexidine Gluc Oral Rinse 15 ML MOUTHWASH BUCCAL ×2 (14:14→20:17)
--- NOTE | 2023-06-13 15:13 | PM.CCPN ---
Subjective Subjective Date of Service: 06/13/23 Interval History: 77-year-old morbidly obese longstanding hypertensive with atrial fibrillation at a controlled rate of unknown amount of time presented with altered mental status found to be in mostly acute but acute on chronic hypercarbic respiratory failure brought down for BiPAP brought is pCO2 down from a 80-60 he really wake and did very well at 1st refusing to cooperate with any further BiPAP and he clearly had anasarca with I would guesstimate 40-50 lb of excess 3rd space fluid on board predominant right heart failure representing acute on chronic cor pulmonale my bedside echo had indicated normal LV systolic function but clearly predominant right heart failure cardiology wanted to attempt to convert it is atrial fibrillation thinking that it would help and in order to do the transesophageal echo wanted airway protection and in a given the fact that he is and obesity/ hypoventilation as well as as well as an obstructive sleep apnea I intubated him and clearly he was a somewhat difficult airway but went very easily and transesophageal echo indicated no presence of any clot nor preamble to clot the end excellent and left atrial appendiceal function and no primary valve disease E had a trace of pericardial effusion but a very large right ventricle and right atrium so we proceeded with cardioversion which was unsuccessful and then we decided that we would leave him intubated load him with IV amiodarone and potentially try again in the morning Critical Care Time (minutes): 90 Physical Exam Vital Signs: Vital Signs: Last Vital Signs Temp 98.5 F 06/13/23 12:00 Pulse 85 06/13/23 14:31 Resp 18 06/13/23 14:00 BP 143/71 H 06/13/23 14:31 Pulse Ox 96 06/13/23 14:00 O2 Del Method Mechanical Ventil ation 06/13/23 14:00 O2 Flow Rate 3 06/13/23 11:00 FiO2 100 06/13/23 14:40 BMI result Body Mass Index 57.6 sedated and intubated doing very well diminished bilateral breath sounds LV systolic function normal but concentrically hypertrophied and just significant dilatation of right ventricle and right atrium 4+ anasarca Objective Data Labs 06/14/23 04:39 06/14/23 04:39 Labs: Laboratory Results - last 24 hr 06/12/23 06/12/23 06/13/23 17:26 20:53 04:41 WBC 9.6 RBC 5.00 Hgb 12.7 L Hct 42.3 MCV 84.6 MCH 25.4 L MCHC 30.0 L RDW 15.2 Plt Count 229 MPV 9.6 Immature Gran % (Auto) 0.6 H Neut % (Auto) 78.5 H Lymph % (Auto) 9.6 L [place] % (Auto) 10.3 Eos % (Auto) 0.7 Baso % (Auto) 0.3 Lymph # (Auto) 0.9 L [place] # (Auto) 1.0 Eos # (Auto) 0.1 Baso # (Auto) 0.0 Abs Immat Gran (auto) 0.06 H Absolute Neuts (auto) 7.5 Absolute Nucleated RBC 0.000 Nucleated RBC % (auto) 0.0 VBG pH VBG pCO2 VBG pO2 VBG HCO3 VBG O2 Saturation VBG Base Excess Sodium 134 L Potassium 4.0 Chloride 95 L Carbon Dioxide 31 H Anion Gap 12 BUN 8 L Creatinine 0.66 Estim Creat Clear Calc 162.0 Estimated GFR > 60 POC Glucose 172 H 93 Random Glucose 115 Estimat Average Glucose 146 Hemoglobin A1c % 6.7 H Calcium 8.8 D Phosphorus 3.1 Magnesium 1.8 Albumin 3.0 L 06/13/23 06/13/23 06/13/23 04:47 08:15 12:02 WBC RBC Hgb Hct MCV MCH MCHC RDW Plt Count MPV Immature Gran % (Auto) Neut % (Auto) Lymph % (Auto) [place] % (Auto) Eos % (Auto) Baso % (Auto) Lymph # (Auto) [place] # (Auto) Eos # (Auto) Baso # (Auto) Abs Immat Gran (auto) Absolute Neuts (auto) Absolute Nucleated RBC Nucleated RBC % (auto) VBG pH 7.39 VBG pCO2 63 VBG pO2 43 VBG HCO3 38 H VBG O2 Saturation 73.0 VBG Base Excess 10.7 Sodium Potassium Chloride Carbon Dioxide Anion Gap BUN Creatinine Estim Creat Clear Calc Estimated GFR POC Glucose 139 H 130 H Random Glucose Estimat Average Glucose Hemoglobin A1c % Calcium Phosphorus Magnesium Albumin Microbiology Microbiology Results: Microbiology 06/11/23 21:35 Blood - Venous Blood Culture - Preliminary No growth after 24 hours. 06/11/23 21:17 Blood - Venous Blood Culture - Preliminary No growth after 24 hours. Progress Note: A&P Assessment and plan (1) Encephalopathy acute: Status: Acute (2) Hypertensive 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: Status: Acute (3) Cor pulmonale: Status: Acute (4) Acute on chronic respiratory failure with hypoxia and hypercapnia: Status: Acute (5) Atrial fibrillation with rapid ventricular response: Status: Acute (6) Nausea & vomiting: Status: Acute (7) COVID-19: Status: Acute (8) Hypoxia: Status: Acute (9) CRP elevated: Status: Acute Plan plan is to remain intubated take advantage of the positive-pressure keep him on a 5 milligram/hour IV Lasix drip and he literally diuresed to the tune of 3-400 cc/hour max [place] out at somewhere between 5 and 6 L overnight Quality Stroke Does the patient have a stroke diagnosis?: No VTE Prior VTE?: No VTE Risk Level:: Medical - moderate - high VTE Device Contraindication: N/A - Device Ordered VTE Drug Contraindication: Treatment Not Indicated
--- NOTE | 2023-06-13 15:14 | P.PCNCC_ITS ---
Procedures Date of Service Date of Service: 06/13/23 Intubation Intubation Comments: massively obese individual with obstructive sleep apnea and difficult airway that I and intubated electively after discussion with the patient and agreement for preparation for transesophageal ECHO with considered risk of aspiration and lack of airway protection utilized a 4. Blade and a glide scope support and a 7.5 endotracheal tube with excellent visualization of vocal cords and the position confirmed with good bilateral breath sounds no no sounds over the abdomen and and excellent end- tidal CO2 response and chest x-ray confirmation Consent for Procedure: Elective - informed consent obtained Time out performed: Yes Sedative: propofol Paralytic: rocuronium Laryngoscope: fiber optic video scope ET tube size: 7.5 ET tube uncuffed: No Tube secured depth (cm): 24 Tube secured location: lips Tube placement confirmation: visualized tube passing through cords, equal breath sounds bilaterally, no breath sounds over epigastrium and confirmation by capnometry Patient tolerated procedure: well and no complications Intubation complications: none
--- NOTE | 2023-06-13 15:19 | MHC.CM.PN ---
Pt continuing care in ICU: presently on ventilatory support with a plan for extubation on 06/14. D/C plan is for a return to [facility] where pt is a resident. BLS transport. CM to follow.
[2023-06-13 17:07] LABS: Glucose, Whole Blood 117 mg/dL (60-115)
[2023-06-13] MEDS: propofoL 1,000 MG/100 ML VIAL 32.78 MG IVCONT ×3 (18:40→23:30)
--- NOTE | 2023-06-13 19:21 | PC.NURSE ---
Assumed care at 07:00. Patient was originally alert and oriented x4, forgetful, poor short term memory, otherwise reports being bedbound at baseline living at rehab. Able to move all extremities to command and assists with bed mobility also with assistance of 3. Patient was seen by cardiology and started on lasix gtt, had 1.3 L output and is -2.9 this admission per I&O. Patient consented for WENDY and cardioversion. Was intubated at 11:30 after induction with 75 mg of IVP rocuronium and had incremental doses of IVP propofol. Patient has been in afib, rate mostly controlled, but some non-sustained rates of 130-140, especially during procedure, and 2 mg IVP metoprolol given per MD. Patient with 2 attempts of cardioversion without effect. Patient loaded with amiodarone and on continuous infusion, started at 14:00, due to have dose reduction per emar at 20:00, and oncoming nurse is following up. Patient awoke after procedure and followed commands and DOMINGUEZ and MD and RT aware, and due to impending procedure tomorrow, planned to remain intubated overnight, started on propofol gtt per MD, attempted to keep doserate at 20 mcg/kg/min, frequent vent desynchronny with high peak pressures of 40 cm H2O and coughing required IVP versed order per MD and administered PRN frequently per emar, and doserate of propofol increased to 30 mcg/kg/min. Patient had low BPs during procedure with MAP of 50-53, recovered spontaneously, then required levophed start for low BP soon after, max dose was 0.05, was titrated down by 0.01 mcg/kg/min as per MD. Patient continues to be in afib with controlled rate. Edematous, BLE with +4 pitting edema, sacral edema +2, BUE edema. Patient with dim LS and distant heartsounds. Was on 4LPM before intubation. Copious oral secretions, clear. Small amount of thin clear inline secretions. Started therapeutic lovenox today. Patient with #7.5 ETT, 25 cm gene. Patient with AC settings rt18; TV 450; FiO2 50%; Peep 5; Te 7-8 L/min; Peak pressures 26 - 40 cm H2O. EtCO2 in 30's mmHg. NPO. Large semi-formed stool gregory/brown today incontinent. Key for fluid management/diruesis.
[2023-06-13 20:15] LABS: Glucose, Whole Blood 122 mg/dL (60-115)
[2023-06-13] MEDS: acetaZOLAMIDE sodium 500 MG VIAL 250 MG IVPUSH (20:16)
[2023-06-14] VITALS (35 sets, daily range): BP systolic 104–165; BP diastolic 58–93; PULSE 44–105; RESP 13–25; TEMP 34.7–37.1; O2SAT 91–100; BMI 55.4
[2023-06-14] MEDS: Enoxaparin Sodium 150 MG/ML SYRINGE SUBCUT ×2 (01:00→12:36)
[2023-06-14] MEDS: propofoL 1,000 MG/100 ML VIAL 32.78 MG IVCONT ×3 (02:22→08:11)
[2023-06-14 04:46] LABS: VBG Base Excess 9.4 mmol/L; VBG HCO3 31 mmol/L (22-26); VBG pCO2 33 mmHg; VBG pH 7.58 (7.32-7.43); VBG pO2 73 mmHg
[2023-06-14 04:58] LABS: MANUAL DIFF FLAG NO
[2023-06-14 04:59] LABS: Basophils Percent Auto 0.3 % (0-2); Eosinophils Absolute Auto 0.1 X10*3/uL (0.0-0.4); Eosinophils Percent Auto 1.3 % (0-4); Hematocrit 42.2 % (42.0-52.0); Hemoglobin 13.5 g/dl (14.0-18.0); Imm Gran Abs Auto 0.03 X10*3/uL (0.00-0.03); Imm Gran Pct Auto 0.3 % (0.0-0.4); Lymphocytes Absolute Auto 1.1 X10*3/uL (1.2-4.9); Lymphocytes Percent Auto 11.6 % (20-40); Mean Corpuscular Hemoglobin 26.1 pg (27.0-33.0); Mean Corpuscular Volume 81.6 fL (80.0-98.0); Mean Platelet Volume 9.4 fL (9.4-12.4); Monocytes Absolute Auto 0.8 X10*3/uL (0.1-1.2); Monocytes Percent Auto 8.9 % (2-11); Neutrophils Absolute Auto 7.2 x10*3/uL (2.0-8.3); Neutrophils Percent Auto 77.6 % (45-73); Platelet Count 231 X10*3/uL (160-400); Red Blood Count 5.17 X10*6/uL (4.60-5.80); Red Cell Distribution Width 15.5 % (11.0-16.0); White Blood Count 9.3 X10*3/uL (4.8-10.8)
[2023-06-14 04:59] LABS: Venous Blood Gas Refer to POC result
[2023-06-14 05:15] LABS: Albumin Level 3.2 g/dL (3.5-5.0); Anion Gap 16 (12-20); Blood Urea Nitrogen 8 mg/dL (9-16); Calcium 8.7 mg/dL (8.4-10.2); Carbon Dioxide 26 mmol/L (22-29); Chloride 98 mmol/L (96-108); Creatinine Clr Calc Pharmacy 150.4; Estimated Glomerular Filt Rate > 60; Glucose Random 124 mg/dL (60-115); Magnesium 1.7 mg/dL (1.6-2.6); Phosphorus 1.5 mg/dL (2.7-4.5); Potassium 2.7 mmol/L (3.3-5.1); Sodium 137 mmol/L (135-145)
[2023-06-14] MEDS: Potassium Chloride/H20 10 MEQ/100 ML PIGGYBACK 100 MEQ IV ×2 (06:06→07:20)
[2023-06-14] MEDS: Potassium Phosphate/NS 15 MMOL/250 ML PLAST..BAG 62.5 MMOL IV ×2 (07:23→12:14)
[2023-06-14 07:24] LABS: Glucose, Whole Blood 114 mg/dL (60-115)
[2023-06-14] MEDS: Furosemide 200 MG in 0.9 % Sodium Chloride 80 ML IVCONT (08:19)
[2023-06-14] MEDS: Chlorhexidine Gluc Oral Rinse 15 ML MOUTHWASH BUCCAL (08:22)
[2023-06-14] MEDS: Potassium Chloride Packet 20 MEQ PACKET 40 MEQ OG-TUBE (08:23)
[2023-06-14 12:01] LABS: Glucose, Whole Blood 113 mg/dL (60-115)
--- NOTE | 2023-06-14 12:10 | PM.PNCARD ---
Subjective Subjective Date of Service: 06/14/23 Principal diagnosis: atrial fibrillation, heart failure. Interval history: Patient remains in atrial fibrillation with controlled ventricular response. Has diuresed about 6 L overnight. Oxygenation stable. Blood pressure is stable. Failed cardioversion yesterday Review of Systems Review of Systems Yes unobtainable due to endotracheal tube Physical Exam Vital Signs: Last Vital Signs Temp 98.8 F 06/14/23 12:00 Pulse 100 06/14/23 12:00 Resp 19 06/14/23 12:00 BP 158/89 H 06/14/23 12:00 Pulse Ox 94 06/14/23 12:00 O2 Del Method Mechanical Ventilation 06/14/23 12:00 O2 Flow Rate 3 06/13/23 11:00 FiO2 40 06/14/23 12:00 BMI result Body Mass Index 55.4 Const General: cooperative, comfortable, alert and awake Nutritional Appearance: obese morbidly obese Orientation/consciousness: patient oriented x3 HEENT Head: Yes normocephalic and Yes atraumatic Neck Neck: Yes trachea midline, Yes supple and Yes other (Difficult to evaluate JVD) Resp Effort & Inspection: decreased respiratory effort Auscultation: no crackles, no wheezes and diminished lung sounds Cardio Rate: tachycardic Rhythm: abnormal rhythm irregularly irregular Heart sounds: S1 normal heart sound present and S2 normal heart sound present GI Inspection: Yes Abdominal panniculus present and Yes obesity Auscultation: normal bowel sounds Skin General skin exam: no rashes or lesions noted Neuro General: patient oriented x3 and no focal motor deficits Extrem General: No clubbing, No cyanosis and Yes edema (Marked edema) Objective Labs and Meds 06/14/23 04:39 06/14/23 04:39 Lab results: Laboratory Results - last 24 hr 06/13/23 06/13/23 06/13/23 12:02 16:59 20:12 WBC RBC Hgb Hct MCV MCH MCHC RDW Plt Count MPV Immature Gran % (Auto) Neut % (Auto) Lymph % (Auto) [place] % (Auto) Eos % (Auto) Baso % (Auto) Lymph # (Auto) [place] # (Auto) Eos # (Auto) Baso # (Auto) Abs Immat Gran (auto) Absolute Neuts (auto) Absolute Nucleated RBC Nucleated RBC % (auto) VBG pH VBG pCO2 VBG pO2 VBG HCO3 VBG O2 Saturation VBG Base Excess Sodium Potassium Chloride Carbon Dioxide Anion Gap BUN Creatinine Estim Creat Clear Calc Estimated GFR POC Glucose 130 H 117 H 122 H Random Glucose Calcium Phosphorus Magnesium Albumin 06/14/23 06/14/23 06/14/23 04:39 04:40 07:20 WBC 9.3 RBC 5.17 Hgb 13.5 L Hct 42.2 MCV 81.6 MCH 26.1 L MCHC 32.0 RDW 15.5 Plt Count 231 MPV 9.4 Immature Gran % (Auto) 0.3 Neut % (Auto) 77.6 H Lymph % (Auto) 11.6 L [place] % (Auto) 8.9 Eos % (Auto) 1.3 Baso % (Auto) 0.3 Lymph # (Auto) 1.1 L [place] # (Auto) 0.8 Eos # (Auto) 0.1 Baso # (Auto) 0.0 Abs Immat Gran (auto) 0.03 Absolute Neuts (auto) 7.2 Absolute Nucleated RBC 0.000 Nucleated RBC % (auto) 0.0 VBG pH 7.58 H VBG pCO2 33 VBG pO2 73 VBG HCO3 31 H VBG O2 Saturation 96.0 VBG Base Excess 9.4 Sodium 137 Potassium 2.7 L D Chloride 98 Carbon Dioxide 26 Anion Gap 16 BUN 8 L Creatinine 0.70 Estim Creat Clear Calc 150.4 Estimated GFR > 60 POC Glucose 114 Random Glucose 124 H Calcium 8.7 Phosphorus 1.5 L Magnesium 1.7 Albumin 3.2 L 06/14/23 11:55 WBC RBC Hgb Hct MCV MCH MCHC RDW Plt Count MPV Immature Gran % (Auto) Neut % (Auto) Lymph % (Auto) [place] % (Auto) Eos % (Auto) Baso % (Auto) Lymph # (Auto) [place] # (Auto) Eos # (Auto) Baso # (Auto) Abs Immat Gran (auto) Absolute Neuts (auto) Absolute Nucleated RBC Nucleated RBC % (auto) VBG pH VBG pCO2 VBG pO2 VBG HCO3 VBG O2 Saturation VBG Base Excess Sodium Potassium Chloride Carbon Dioxide Anion Gap BUN Creatinine Estim Creat Clear Calc Estimated GFR POC Glucose 113 Random Glucose Calcium Phosphorus Magnesium Albumin Progress Note: A&P Assessment and plan (1) Cor pulmonale: Status: Acute Assessment and Plan: cor pulmonale with significant right heart failure. Diuresing well currently. Continue IV Lasix and IV Diamox. Continue supportive care. Most likely cause for his right ventricular /right heart failure his morbid obesity with Pickwickian syndrome and/or untreated / undiagnosed sleep apnea. Continue supportive care and plan to bring him on of mechanical ventilation. In the long run at nighttime would consider empiric CPAP therapy for now. Strict intake and output chart needs to be pursued. Continue to follow electrolytes. Potassium is significantly low and should be aggressively repleted. Consider adding spironolactone 25 mg to his regimen for heart failure as well as for hypokalemia As well as hypertension. (2) Atrial fibrillation with rapid ventricular response: Status: Acute Assessment and Plan: Atrial fibrillation rapid ventricular response, failed synchronized cardioversion yesterday. I think given his structural abnormality likelihood of immediate successful below. I would consider switching him to oral amiodarone loading 400 mg b.i.d. for 2 weeks followed by synchronized cardioversion which can be done as an outpatient. can also use metoprolol for rate control. Continue with full oral anticoagulation. Time Spent With Patient Time: Total time managing care of this patient today ____ minutes. Progress Note: Quality Stroke Does the patient have a stroke diagnosis?: No Procedures Date of Service Date of Service: 06/14/23
[2023-06-14] MEDS: Amiodarone HCL 900 MG in 0.9 % Sodium Chloride 500 ML 17.27 MG IVCONT (12:15)
[2023-06-14] MEDS: dexmedeTOMIDidine HCL/NS 400 MCG/100 ML INFUS..BTL 21.89 MCG IVCONT (12:30)
--- NOTE | 2023-06-14 15:47 | MHC.CM.PN ---
EMR REVIEWED. PT REMAINS IN ICU AND NOT MEDICALLY CLEARED FOR DC BACK TO [facility] OR/TRANSFER TO MEDICAL FLOOR. CM WILL CONTINUE TO FOLLOW FOR ANY CHANGE IN DC PLAN/NEEDS.
--- NOTE | 2023-06-14 16:01 | PM.CCPN ---
Subjective Subjective Date of Service: 06/14/23 Interval History: 77-year-old morbidly obese individual with obesity hypoventilation and obstructive sleep apnea untreated atrial fibrillation persistent for unknown amount of time acute on chronic cor pulmonale reflecting acute on chronic hypercarbic respiratory failure who failed cardioversion x1 but was eligible and he is now anticoagulated and we started IV loading of amiodarone he was intubated overnight and diuresed almost all 11 L of fluid and we just successfully extubated him and he looks excellent feels good and I have discussed with him nocturnal BiPAP as part of his therapy but I am stopping his Lasix drip right now Critical Care Time (minutes): 45 Physical Exam Vital Signs: Vital Signs: Last Vital Signs Temp 98.8 F 06/14/23 12:00 Pulse 66 06/14/23 15:00 Resp 17 06/14/23 15:00 BP 104/58 L 06/14/23 15:00 Pulse Ox 97 06/14/23 15:00 O2 Del Method Mechanical Ventil ation 06/14/23 15:00 O2 Flow Rate 3 06/13/23 11:00 FiO2 40 06/14/23 15:49 BMI result Body Mass Index 55.4 awake alert good cognitive function good bilateral carotid upstrokes no neck vein distension diminished bilateral breath sounds abdomen benign no organomegaly Objective Data Labs 06/14/23 04:39 06/14/23 04:39 Labs: Laboratory Results - last 24 hr 06/13/23 06/13/23 06/14/23 16:59 20:12 04:39 WBC 9.3 RBC 5.17 Hgb 13.5 L Hct 42.2 MCV 81.6 MCH 26.1 L MCHC 32.0 RDW 15.5 Plt Count 231 MPV 9.4 Immature Gran % (Auto) 0.3 Neut % (Auto) 77.6 H Lymph % (Auto) 11.6 L [place] % (Auto) 8.9 Eos % (Auto) 1.3 Baso % (Auto) 0.3 Lymph # (Auto) 1.1 L [place] # (Auto) 0.8 Eos # (Auto) 0.1 Baso # (Auto) 0.0 Abs Immat Gran (auto) 0.03 Absolute Neuts (auto) 7.2 Absolute Nucleated RBC 0.000 Nucleated RBC % (auto) 0.0 VBG pH VBG pCO2 VBG pO2 VBG HCO3 VBG O2 Saturation VBG Base Excess Sodium 137 Potassium 2.7 L D Chloride 98 Carbon Dioxide 26 Anion Gap 16 BUN 8 L Creatinine 0.70 Estim Creat Clear Calc 150.4 Estimated GFR > 60 POC Glucose 117 H 122 H Random Glucose 124 H Calcium 8.7 Phosphorus 1.5 L Magnesium 1.7 Albumin 3.2 L 06/14/23 06/14/23 06/14/23 04:40 07:20 11:55 WBC RBC Hgb Hct MCV MCH MCHC RDW Plt Count MPV Immature Gran % (Auto) Neut % (Auto) Lymph % (Auto) [place] % (Auto) Eos % (Auto) Baso % (Auto) Lymph # (Auto) [place] # (Auto) Eos # (Auto) Baso # (Auto) Abs Immat Gran (auto) Absolute Neuts (auto) Absolute Nucleated RBC Nucleated RBC % (auto) VBG pH 7.58 H VBG pCO2 33 VBG pO2 73 VBG HCO3 31 H VBG O2 Saturation 96.0 VBG Base Excess 9.4 Sodium Potassium Chloride Carbon Dioxide Anion Gap BUN Creatinine Estim Creat Clear Calc Estimated GFR POC Glucose 114 113 Random Glucose Calcium Phosphorus Magnesium Albumin Microbiology Microbiology Results: Microbiology 06/11/23 21:35 Blood - Venous Blood Culture - Preliminary No growth after 48 hours. 06/11/23 21:17 Blood - Venous Blood Culture - Preliminary No growth after 48 hours. Progress Note: A&P Assessment and plan (1) Encephalopathy acute: Status: Acute (2) Hypertensive 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: Status: Acute (3) Cor pulmonale: Status: Acute (4) Acute on chronic respiratory failure with hypoxia and hypercapnia: Status: Acute (5) Atrial fibrillation with rapid ventricular response: Status: Acute (6) Nausea & vomiting: Status: Acute (7) COVID-19: Status: Acute (8) Hypoxia: Status: Acute (9) CRP elevated: Status: Acute Plan we proved the benefits of positive pressure ventilation clinically of course improving cardiac output overall but basically primarily unloading right ventricular function and in conjunction with the Lasix drip we started the process of reducing all that 3rd space volume and this considerably more guesstimate at 20-30 lb at at a minimum but he is convinced I hope of the need for nocturnal BiPAP and that is going to be the plan and we could start him on some form of maintenance diuretic combination Quality Stroke Does the patient have a stroke diagnosis?: No VTE Prior VTE?: No VTE Risk Level:: Medical - moderate - high VTE Device Contraindication: N/A - Device Ordered VTE Drug Contraindication: Treatment Not Indicated
[2023-06-14 18:04] LABS: Glucose, Whole Blood 120 mg/dL (60-115)
[2023-06-14] MEDS: Acetaminophen 325 MG TABLET 650 MG PO (21:39)
[2023-06-14] MEDS: Melatonin 3 MG TABLET 6 MG PO (21:41)
[2023-06-14 22:12] LABS: Glucose, Whole Blood 118 mg/dL (60-115)
--- NOTE | 2023-06-14 23:54 | PC.RT ---
Pt refusing Bipap at this time; spent extensive amount of time with patient re-adjusting mask, settings and explaining benefits of NIV. MD and RN aware
[2023-06-15] VITALS (21 sets, daily range): BP systolic 108–150; BP diastolic 43–83; PULSE 81–123; RESP 14–24; TEMP 34.7–36.8; O2SAT 93–98; BMI 55.6
[2023-06-15] MEDS: Enoxaparin Sodium 150 MG/ML SYRINGE SUBCUT (02:46)
[2023-06-15 04:46] LABS: VBG HCO3 28 mmol/L (22-26); VBG pCO2 41 mmHg; VBG pH 7.44 (7.32-7.43); VBG pO2 52 mmHg
[2023-06-15 04:48] LABS: Venous Blood Gas Refer to POC result
[2023-06-15 04:58] LABS: MANUAL DIFF FLAG NO
[2023-06-15 05:03] LABS: Basophils Percent Auto 0.3 % (0-2); Eosinophils Absolute Auto 0.2 X10*3/uL (0.0-0.4); Eosinophils Percent Auto 1.5 % (0-4); Hematocrit 43.5 % (42.0-52.0); Hemoglobin 13.9 g/dl (14.0-18.0); Imm Gran Abs Auto 0.04 X10*3/uL (0.00-0.03); Imm Gran Pct Auto 0.3 % (0.0-0.4); Lymphocytes Absolute Auto 1.1 X10*3/uL (1.2-4.9); Lymphocytes Percent Auto 9.4 % (20-40); Mean Corpuscular Hemoglobin 25.7 pg (27.0-33.0); Mean Corpuscular Volume 80.4 fL (80.0-98.0); Mean Platelet Volume 9.2 fL (9.4-12.4); Monocytes Absolute Auto 0.8 X10*3/uL (0.1-1.2); Monocytes Percent Auto 6.7 % (2-11); Neutrophils Absolute Auto 9.6 x10*3/uL (2.0-8.3); Neutrophils Percent Auto 81.8 % (45-73); Platelet Count 247 X10*3/uL (160-400); Red Blood Count 5.41 X10*6/uL (4.60-5.80); Red Cell Distribution Width 15.8 % (11.0-16.0); White Blood Count 11.7 X10*3/uL (4.8-10.8)
[2023-06-15 05:21] LABS: Albumin Level 3.4 g/dL (3.5-5.0); Anion Gap 16 (12-20); Blood Urea Nitrogen 9 mg/dL (9-16); Carbon Dioxide 25 mmol/L (22-29); Chloride 99 mmol/L (96-108); Creatinine Clr Calc Pharmacy 163.1; Estimated Glomerular Filt Rate > 60; Glucose Random 110 mg/dL (60-115); Magnesium 1.8 mg/dL (1.6-2.6); Phosphorus 3.1 mg/dL (2.7-4.5); Potassium 3.4 mmol/L (3.3-5.1); Sodium 137 mmol/L (135-145)
[2023-06-15] MEDS: Potassium Chloride Packet 20 MEQ PACKET PO (06:09)
--- NOTE | 2023-06-15 06:38 | PM.CCPN ---
Subjective Subjective Date of Service: 06/15/23 Interval History: 77-year-old morbidly obese man who apparently has had longstanding obesity/ hypoventilation as well as obstructive sleep apnea untreated for years secondary cor pulmonale and he is a hypertensive so there is been some degree of left ventricular disease as well but has preserved left ventricular systolic function but diminished diastolic reserve and is predominant failing organisms right heart and he has got significant right ventricular right atrial dilatation and he failed and it an attempted cardioversion of his persistent atrial fibrillation there was no atrial thrombus of there is no contraindication to cardioversion but were now loading with amiodarone and after 3-4 weeks of anticoagulation he will have another outpatient attempt at conversion but for now the main treatment of his predominant right heart dysfunction really should be BiPAP which he is currently refusing the positive intrathoracic pressure is part of that therapy but failing that if he remains at least on nasal high-flow for now keeps his pCO2 more comfortably down in the 40s that too will have a vasodilating influence on the right ventricle and I would keep him on the amiodarone for now but if he fails cardioversion I would discontinue amiodarone and just pursue rate control of his AFib and for the sake of right ventricular reserve I would prefer digoxin as that agent he also needs at least to start with a diuretic regimen orally probably combined to include a loop diuretic of your choice and his potassium tolerates spironolactone and then may be intermittently he could have either a thiazide such as metolazone or Diamox depending on the level of his serum bicarb in it in having kept the intubation for 24 hours on him combined with a 5 milligram/hour Lasix drip he managed to unload 5 L for a total of 7 L which it which I believe is not even half of his reservoir but at least we made some headway Critical Care Time (minutes): 30 Physical Exam Vital Signs: Vital Signs: Last Vital Signs Temp 98.0 F 06/15/23 04:00 Pulse 86 06/15/23 06:00 Resp 17 06/15/23 06:00 BP 121/79 06/15/23 06:00 Pulse Ox 97 06/15/23 06:00 O2 Del Method High Flow Nasal C annula 06/15/23 06:00 O2 Flow Rate 40 06/15/23 06:00 FiO2 30 06/15/23 06:00 BMI result Body Mass Index 55.6 alert with good cognitive function no respiratory distress he did beautifully on the nasal high-flow the high-flow being the servin to keeping his pCO2 in the low to mid 40s he had a small overnight negative intake and output balance and he was off the Lasix drip since yesterday afternoon when we had an easy successful extubation lungs with diminished bilateral breath sounds no adventitious sounds and no significant work of breathing cardiac indicating no neck vein distension with good bilateral carotid upstrokes quiet precordium no gallops abdomen soft no organomegaly still with 4+ anasarca Objective Data Labs 06/15/23 04:40 06/15/23 04:40 Labs: Laboratory Results - last 24 hr 06/14/23 06/14/23 06/14/23 07:20 11:55 17:52 WBC RBC Hgb Hct MCV MCH MCHC RDW Plt Count MPV Immature Gran % (Auto) Neut % (Auto) Lymph % (Auto) [place] % (Auto) Eos % (Auto) Baso % (Auto) Lymph # (Auto) [place] # (Auto) Eos # (Auto) Baso # (Auto) Abs Immat Gran (auto) Absolute Neuts (auto) Absolute Nucleated RBC Nucleated RBC % (auto) VBG pH VBG pCO2 VBG pO2 VBG HCO3 VBG O2 Saturation VBG Base Excess Sodium Potassium Chloride Carbon Dioxide Anion Gap BUN Creatinine Estim Creat Clear Calc Estimated GFR POC Glucose 114 113 120 H Random Glucose Calcium Phosphorus Magnesium Albumin 06/14/23 06/15/23 06/15/23 22:07 04:39 04:40 WBC 11.7 H RBC 5.41 Hgb 13.9 L Hct 43.5 MCV 80.4 MCH 25.7 L MCHC 32.0 RDW 15.8 Plt Count 247 MPV 9.2 L Immature Gran % (Auto) 0.3 Neut % (Auto) 81.8 H Lymph % (Auto) 9.4 L [place] % (Auto) 6.7 Eos % (Auto) 1.5 Baso % (Auto) 0.3 Lymph # (Auto) 1.1 L [place] # (Auto) 0.8 Eos # (Auto) 0.2 Baso # (Auto) 0.0 Abs Immat Gran (auto) 0.04 H Absolute Neuts (auto) 9.6 H Absolute Nucleated RBC 0.000 Nucleated RBC % (auto) 0.0 VBG pH 7.44 H VBG pCO2 41 VBG pO2 52 VBG HCO3 28 H VBG O2 Saturation 83.0 VBG Base Excess 4.0 Sodium 137 Potassium 3.4 D Chloride 99 Carbon Dioxide 25 Anion Gap 16 BUN 9 Creatinine 0.63 Estim Creat Clear Calc 163.1 Estimated GFR > 60 POC Glucose 118 H Random Glucose 110 Calcium 9.0 Phosphorus 3.1 Magnesium 1.8 Albumin 3.4 L Microbiology Microbiology Results: Microbiology 06/11/23 21:35 Blood - Venous Blood Culture - Preliminary No growth after 48 hours. 06/11/23 21:17 Blood - Venous Blood Culture - Preliminary No growth after 48 hours. Progress Note: A&P Assessment and plan (1) Encephalopathy acute: Status: Acute (2) Hypertensive 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: Status: Acute (3) Cor pulmonale: Status: Acute (4) Acute on chronic respiratory failure with hypoxia and hypercapnia: Status: Acute (5) Atrial fibrillation with rapid ventricular response: Status: Acute (6) Nausea & vomiting: Status: Acute (7) COVID-19: Status: Acute (8) Hypoxia: Status: Acute (9) CRP elevated: Status: Acute Plan so for this gentleman with obesity hypoventilation and obstructive sleep apnea all we asked of him was to do nocturnal BiPAP which she is refusing at the very least nasal high-flow set up for control of his pCO2 and continuing to load him now for for the balance of 2 more weeks with oral amiodarone at 200 mg t.i.d. and then converting to a maintenance of 200 once a day and then if he fails outpatient cardioversion I would do simple rate control with digoxin preferably to preserve his right ventricular reserve start a combination oral maintenance diuretic therapy and he probably should remain on anticoagulation between his persistent atrial fibrillation and his sedentary existence and for that I have him on apixaban 5 mg b.i.d. Quality Stroke Does the patient have a stroke diagnosis?: No VTE Prior VTE?: No VTE Risk Level:: Medical - moderate - high VTE Device Contraindication: N/A - Device Ordered VTE Drug Contraindication: Treatment Not Indicated
[2023-06-15] MEDS: Apixaban 5 MG TABLET PO ×2 (08:11→20:13)
[2023-06-15] MEDS: Amiodarone HCL 200 MG TABLET PO ×3 (08:11→20:13)
--- NOTE | 2023-06-15 09:15 | P.PNIM_ITS ---
Subjective Subjective Date of Service: 06/15/23 Interval History: neck pain Physical Exam 2 Vital Signs: Vital Signs: Last Vital Signs Temp 97.9 F 06/15/23 08:00 Pulse 103 H 06/15/23 09:00 Resp 15 06/15/23 08:00 BP 121/56 L 06/15/23 09:00 Pulse Ox 97 06/15/23 09:00 O2 Del Method High Flow Nasal C annula, Trach Stephen ar 06/15/23 09:00 O2 Flow Rate 40 06/15/23 09:00 FiO2 30 06/15/23 09:00 BMI result Body Mass Index 55.6 awake alert good cognitive function good bilateral carotid upstrokes no neck vein distension diminished bilateral breath sounds abdomen benign no organomegaly Objective Data Active Medications Amiodarone HCl (Amiodarone Hcl 200 Mg Tablet) 200 mg PO TID [facility] Last Admin: 06/15/23 08:11 Dose: 200 mg Documented By: AMANDA Apixaban (Apixaban 5 Mg Tablet) 5 mg PO BID [facility] Last Admin: 06/15/23 08:11 Dose: 5 mg Documented By: AMANDA Dextrose (Dextrose 50 % 25 Gm/50 Ml Syringe) 25 gm IVPUSH Q15M PRN; Protocol PRN Reason: per Hypoglycemia Standing Ord. Glucose (Glucose Gel 15 Gm Gel..Gram.) 15 gm PO Q15M PRN; Protocol PRN Reason: per Hypoglycemia Standing Ord. Insulin Human Lispro (Insulin Lispro 100 Unit/Ml 3 Ml Vial) 0 unit SUBCUT QIDACHS [facility]; Protocol Last Admin: 06/15/23 07:20 Dose: Not Given Documented By: AMANDA Non-Admin Reason: No Insulin Coverage Midazolam HCl (Midazolam Hcl/Pf 2 Mg/2 Ml Vial) 2 mg IVPUSH Q15M PRN PRN Reason: Ventilator synchrony Last Admin: 06/13/23 15:00 Dose: 2 mg Documented By: ALIYA Labs 06/15/23 04:40 06/15/23 04:40 Labs: Laboratory Results - last 24 hr 06/14/23 06/14/23 06/14/23 11:55 17:52 22:07 MCV MCH MCHC RDW Plt Count MPV Immature Gran % (Auto) Neut % (Auto) Lymph % (Auto) [place] % (Auto) Eos % (Auto) Baso % (Auto) Lymph # (Auto) [place] # (Auto) Eos # (Auto) Baso # (Auto) Abs Immat Gran (auto) Absolute Neuts (auto) Absolute Nucleated RBC Nucleated RBC % (auto) VBG pH VBG pCO2 VBG pO2 VBG HCO3 VBG O2 Saturation VBG Base Excess Anion Gap Estim Creat Clear Calc Estimated GFR POC Glucose 113 120 H 118 H Random Glucose Calcium Phosphorus Magnesium Albumin 06/15/23 06/15/23 04:39 04:40 MCV 80.4 MCH 25.7 L MCHC 32.0 RDW 15.8 Plt Count 247 MPV 9.2 L Immature Gran % (Auto) 0.3 Neut % (Auto) 81.8 H Lymph % (Auto) 9.[address] [place] % (Auto) 6.7 Eos % (Auto) 1.5 Baso % (Auto) 0.3 Lymph # (Auto) 1.[address] [place] # (Auto) 0.8 Eos # (Auto) 0.2 Baso # (Auto) 0.0 Abs Immat Gran (auto) 0.04 H Absolute Neuts (auto) 9.6 H Absolute Nucleated RBC 0.000 Nucleated RBC % (auto) 0.0 VBG pH 7.44 H VBG pCO2 41 VBG pO2 52 VBG HCO3 28 H VBG O2 Saturation 83.0 VBG Base Excess 4.0 Anion Gap 16 Estim Creat Clear Calc 163.1 Estimated GFR > 60 POC Glucose Random Glucose 110 Calcium 9.0 Phosphorus 3.1 Magnesium 1.8 Albumin 3.4 L Assessment and Plan (1) Encephalopathy acute: Status: Acute Plan 77-year-old male with a past medical history of hypertension, hyperlipidemia, CKD, anemia, alcohol abuse, anxiety, depression, and BPH who was sent to the emergency room from his custodial facility? for shortness of breath and tachycardia. found to be in new onset rapid afib, chf, and hypoxic and hypercapneic, admitted to icu for bipap, diuresed, attempted cardioversion. now on high flow, heart rate improved but still in afib. downgraded to medical floor Acute metabolic encephalopathy due to acute hypoxic and hypercapnic respiratory failure Due to obesity hypoventilation, acute on chronic right-sided CHF Mental status improving, Now on high-flow Continue Lasix drip and Diamox Needs BiPAP at night New onset atrial fibrillation with rapid ventricular response Amiodarone load, apixaban Cardiology following Jeff/cardioversion unsuccessful Morbid obesity Weight loss recommended full code reason for continued hospitalization:iv diuresis Time Spent With Patient Time: Total time managing care of this patient today ____ minutes. Quality Stroke Does the patient have a stroke diagnosis?: No VTE Prior VTE?: No VTE Risk Level:: Medical - moderate - high VTE Device Contraindication: N/A - Device Ordered VTE Drug Contraindication: Treatment Not Indicated
--- NOTE | 2023-06-15 09:20 | P.PNCA_ITS ---
Subjective Subjective Date of Service: 06/15/23 Principal diagnosis: atrial fibrillation, heart failure. Interval history: Patient extubated yesterday. Taken of IV Lasix drip. Diuresis is tepid. Still requiring high-flow oxygen. As per the nurse refuse BiPAP overnight. Remains in atrial fibrillation with controlled ventricular response. Blood pressure is stable. Kidney functions are stable. Review of Systems Constitutional: Reports no additional constitutional complaints Cardiovascular: Denies chest pain, Denies lightheadedness, Denies Loss of Consciousness, Denies palpitations and Reports dyspnea Respiratory: Reports dyspnea Musculoskeletal: Reports no additional musculoskeletal complaints Reports system reviewed and no additional complaints, except as documented Endocrine: Denies palpitations Physical Exam Vital Signs: Last Vital Signs Temp 97.9 F 06/15/23 08:00 Pulse 103 H 06/15/23 09:00 Resp 15 06/15/23 08:00 BP 121/56 L 06/15/23 09:00 Pulse Ox 97 06/15/23 09:00 O2 Del Method High Flow Nasal Cannula, Trach Collar 06/15/23 09:00 O2 Flow Rate 40 06/15/23 09:00 FiO2 30 06/15/23 09:00 BMI result Body Mass Index 55.6 Const General: cooperative and comfortable Nutritional Appearance: obese morbidly obese Orientation/consciousness: patient oriented x3 Neck Neck: Yes trachea midline, Yes supple and Yes other ( Difficult to evaluate JVD) Cardio Rhythm: abnormal rhythm irregularly irregular Heart sounds: S1 normal heart sound present, S2 normal heart sound present, no click, no gallops and no murmurs Neuro General: patient oriented x3 Extrem General: No clubbing, No cyanosis and Yes edema ( significant edema) Objective Labs and Meds 06/15/23 04:40 06/15/23 04:40 Lab results: Laboratory Results - last 24 hr 06/14/23 06/14/23 06/14/23 11:55 17:52 22:07 WBC RBC Hgb Hct MCV MCH MCHC RDW Plt Count MPV Immature Gran % (Auto) Neut % (Auto) Lymph % (Auto) [place] % (Auto) Eos % (Auto) Baso % (Auto) Lymph # (Auto) [place] # (Auto) Eos # (Auto) Baso # (Auto) Abs Immat Gran (auto) Absolute Neuts (auto) Absolute Nucleated RBC Nucleated RBC % (auto) VBG pH VBG pCO2 VBG pO2 VBG HCO3 VBG O2 Saturation VBG Base Excess Sodium Potassium Chloride Carbon Dioxide Anion Gap BUN Creatinine Estim Creat Clear Calc Estimated GFR POC Glucose 113 120 H 118 H Random Glucose Calcium Phosphorus Magnesium Albumin 06/15/23 06/15/23 04:39 04:40 WBC 11.7 H RBC 5.41 Hgb 13.9 L Hct 43.5 MCV 80.4 MCH 25.7 L MCHC 32.0 RDW 15.8 Plt Count 247 MPV 9.2 L Immature Gran % (Auto) 0.3 Neut % (Auto) 81.8 H Lymph % (Auto) 9.4 L [place] % (Auto) 6.7 Eos % (Auto) 1.5 Baso % (Auto) 0.3 Lymph # (Auto) 1.1 L [place] # (Auto) 0.8 Eos # (Auto) 0.2 Baso # (Auto) 0.0 Abs Immat Gran (auto) 0.04 H Absolute Neuts (auto) 9.6 H Absolute Nucleated RBC 0.000 Nucleated RBC % (auto) 0.0 VBG pH 7.44 H VBG pCO2 41 VBG pO2 52 VBG HCO3 28 H VBG O2 Saturation 83.0 VBG Base Excess 4.0 Sodium 137 Potassium 3.4 D Chloride 99 Carbon Dioxide 25 Anion Gap 16 BUN 9 Creatinine 0.63 Estim Creat Clear Calc 163.1 Estimated GFR > 60 POC Glucose Random Glucose 110 Calcium 9.0 Phosphorus 3.1 Magnesium 1.8 Albumin 3.4 L Imaging Radiologist's impression: Impressions Chest X-Ray 06/14/23 08:01 IMPRESSION: Orogastric tube projects over the proximal stomach. Progress Note: A&P Assessment and plan (1) Cor pulmonale: Status: Acute Assessment and Plan: patient with marked obesity with significant restrictive pulmonary disorder with possibly underlying significant sleep apnea causing cor pulmonale with continued significant fluid overload. Continue IV Lasix drip and monitor strict intake and output. Also consider Diamox. Continue monitor renal function and replace electrolytes as needed. Continue rate control with atrial fibrillation. Out of bed to chair incentive spirometry. Strongly advised patient to use BiPAP at nighttime to improve his pulmonary capacity as well as to prevent obstructive physiology. May require oxygen therapy on a chronic basis. (2) Atrial fibrillation with rapid ventricular response: Status: Acute Assessment and Plan: Atrial fibrillation with controlled ventricular response. Continue amiodarone at 400 mg b.i.d. for loading for total of 2 weeks followed by 200 mg daily. Also can use metoprolol for rate control. Continue rate control approach. Continue full oral anticoagulation with Eliquis. Once fully loaded with amiodarone will bring him as an outpatient for synchronized cardioversion 1 more time if possible otherwise long-term will only need to pursue rate control approach. Will follow with you. Time Spent With Patient Time: Total time managing care of this patient today ____ minutes. Progress Note: Quality Stroke Does the patient have a stroke diagnosis?: No Procedures Date of Service Date of Service: 06/15/23
[2023-06-15] MEDS: Digoxin 0.25 MG TABLET PO (09:43)
[2023-06-15] MEDS: Acetaminophen 325 MG TABLET 650 MG PO ×2 (09:43→20:41)
[2023-06-15 11:51] LABS: Glucose, Whole Blood 125 mg/dL (60-115)
--- NOTE | 2023-06-15 16:49 | PC.NURSE ---
Assumed care of patient trnsfered from [facility] at 14:45pm. Patient is alert and oriented to self, place, time and event. Patient sp02 90% on high flow setting 35% 30L. Patient bed alarm on, bed in lowest position.
[2023-06-15] MEDS: Furosemide 200 MG in 0.9 % Sodium Chloride 80 ML IVCONT (17:00)
[2023-06-15 18:16] LABS: Glucose, Whole Blood 154 mg/dL (60-115)
[2023-06-15] MEDS: acetaZOLAMIDE 250 MG TABLET PO (20:13)
[2023-06-15 20:31] LABS: Glucose, Whole Blood 106 mg/dL (60-115)
[2023-06-15] MEDS: oxyCODONE HCl Immed Release 5 MG TABLET PO (20:41)
[2023-06-16] VITALS (9 sets, daily range): BP systolic 131–164; BP diastolic 67–89; PULSE 81–97; RESP 18–22; TEMP 36.3–37.1; O2SAT 94–99; BMI 56.0
[2023-06-16 07:34] LABS: Glucose, Whole Blood 126 mg/dL (60-115)
[2023-06-16] MEDS: Amiodarone HCL 200 MG TABLET PO ×3 (08:33→20:15)
[2023-06-16] MEDS: Apixaban 5 MG TABLET PO ×2 (08:33→20:15)
[2023-06-16] MEDS: acetaZOLAMIDE 250 MG TABLET PO ×2 (08:33→20:14)
[2023-06-16] MEDS: oxyCODONE HCl Immed Release 5 MG TABLET PO ×3 (08:35→20:15)
[2023-06-16] MEDS: Acetaminophen 325 MG TABLET 650 MG PO ×3 (08:58→20:14)
--- NOTE | 2023-06-16 09:36 | P.PNIM_ITS ---
Subjective Subjective Date of Service: 06/16/23 Interval History: more alert Physical Exam 2 Vital Signs: Vital Signs: Last Vital Signs Temp 97.8 F 06/16/23 07:24 Pulse 87 06/16/23 07:24 Resp 20 06/16/23 07:38 BP 164/80 H 06/16/23 07:24 Pulse Ox 99 06/16/23 07:24 O2 Del Method High Flow Nasal C annula 06/16/23 07:24 O2 Flow Rate 40 06/16/23 07:24 FiO2 35 06/16/23 07:24 BMI result Body Mass Index 55.6 Const: General: cooperative and comfortable Nutritional Appearance: obese morbidly obese Orientation/consciousness: patient oriented x3 Neck: Neck: Yes trachea midline, Yes supple and Yes other ( Difficult to evaluate JVD) Cardio: Rhythm: abnormal rhythm irregularly irregular Heart sounds: S1 normal heart sound present, S2 normal heart sound present, no click, no gallops and no murmurs Neuro: General: patient oriented x3 Extrem: General: No clubbing, No cyanosis and Yes edema ( significant edema) Objective Data Active Medications Acetaminophen (Acetaminophen 325 Mg Tablet) 650 mg PO Q6H PRN PRN Reason: Pain, Mild (Pain Scale 1-3) Last Admin: 06/16/23 08:58 Dose: 650 mg Documented By: LAXMI Acetazolamide (Acetazolamide 250 Mg Tablet) 250 mg PO BID [facility] Last Admin: 06/16/23 08:33 Dose: 250 mg Documented By: DWIGHT Amiodarone HCl (Amiodarone Hcl 200 Mg Tablet) 200 mg PO TID [facility] Last Admin: 06/16/23 08:33 Dose: 200 mg Documented By: DWIGHT Apixaban (Apixaban 5 Mg Tablet) 5 mg PO BID [facility] Last Admin: 06/16/23 08:33 Dose: 5 mg Documented By: DWIGHT Dextrose (Dextrose 50 % 25 Gm/50 Ml Syringe) 25 gm IVPUSH Q15M PRN; Protocol PRN Reason: per Hypoglycemia Standing Ord. Glucose (Glucose Gel 15 Gm Gel..Gram.) 15 gm PO Q15M PRN; Protocol PRN Reason: per Hypoglycemia Standing Ord. Furosemide 200 mg/ Sodium (Chloride) 100 mls @ 2.5 mls/hr IVCONT .Q24H [facility] Last Admin: 06/15/23 17:00 Dose: 5 mg/hr, 2.5 mls/hr Documented By: DWIGHT Insulin Human Lispro (Insulin Lispro 100 Unit/Ml 3 Ml Vial) 0 unit SUBCUT QIDACHS [facility]; Protocol Last Admin: 06/16/23 07:36 Dose: Not Given Documented By: DWIGHT Non-Admin Reason: No Insulin Coverage Midazolam HCl (Midazolam Hcl/Pf 2 Mg/2 Ml Vial) 2 mg IVPUSH Q15M PRN PRN Reason: Ventilator synchrony Last Admin: 06/13/23 15:00 Dose: 2 mg Documented By: ALIYA Oxycodone HCl (Oxycodone Hcl Immed Release 5 Mg Tablet) 5 mg PO Q6H PRN PRN Reason: Pain, Moderate(Pain Scale 4-6) Last Admin: 06/16/23 08:35 Dose: 5 mg Documented By: DWIGHT Labs 06/15/23 04:40 06/15/23 04:40 Labs: Laboratory Results - last 24 hr 06/15/23 06/15/23 06/15/23 11:47 18:01 20:27 POC Glucose 125 H 154 H 106 06/16/23 07:26 POC Glucose 126 H Assessment and Plan (1) Encephalopathy acute: Status: Acute Plan 77-year-old male with a past medical history of hypertension, hyperlipidemia, CKD, anemia, alcohol abuse, anxiety, depression, and BPH who was sent to the emergency room from his shelter facility? for shortness of breath and tachycardia. found to be in new onset rapid afib, chf, and hypoxic and hypercapneic, admitted to icu for bipap, diuresed, attempted cardioversion. now on high flow, heart rate improved but still in afib. downgraded to medical floor Acute metabolic encephalopathy due to acute hypoxic and hypercapnic respiratory failure Due to obesity hypoventilation, acute on chronic right-sided CHF Mental status much improved Continue Lasix drip and Diamox BiPAP at night New onset atrial fibrillation with rapid ventricular response Amiodarone load, apixaban Cardiology following Jeff/cardioversion unsuccessful Morbid obesity Weight loss recommended full code reason for continued hospitalization:iv diuresis Time Spent With Patient Time: Total time managing care of this patient today ____ minutes. Quality Stroke Does the patient have a stroke diagnosis?: No VTE Prior VTE?: No VTE Risk Level:: Medical - moderate - high VTE Device Contraindication: N/A - Device Ordered VTE Drug Contraindication: Treatment Not Indicated
[2023-06-16 11:39] LABS: Glucose, Whole Blood 146 mg/dL (60-115)
[2023-06-16] MEDS: Furosemide 200 MG in 0.9 % Sodium Chloride 80 ML IVCONT (16:40)
[2023-06-16 17:07] LABS: Glucose, Whole Blood 134 mg/dL (60-115)
[2023-06-16 20:53] LABS: Glucose, Whole Blood 148 mg/dL (60-115)
[2023-06-16 21:22] LABS: Hematocrit 44.8 % (42.0-52.0); Hemoglobin 14.2 g/dl (14.0-18.0); Mean Corpuscular HGB Conc 31.7 g/dl (31.0-36.0); Mean Corpuscular Hemoglobin 25.5 pg (27.0-33.0); Mean Corpuscular Volume 80.4 fL (80.0-98.0); Mean Platelet Volume 8.6 fL (9.4-12.4); Platelet Count 272 X10*3/uL (160-400); Red Blood Count 5.57 X10*6/uL (4.60-5.80); Red Cell Distribution Width 15.9 % (11.0-16.0); White Blood Count 13.5 X10*3/uL (4.8-10.8)
[2023-06-16 21:33] LABS: Anion Gap 14 (12-20); Blood Urea Nitrogen 12 mg/dL (9-16); Calcium 9.3 mg/dL (8.4-10.2); Carbon Dioxide 29 mmol/L (22-29); Chloride 96 mmol/L (96-108); Creatinine Clr Calc Pharmacy 116.2; Estimated Glomerular Filt Rate > 60; Glucose Fasting 143 mg/dL (60-99); Potassium 3.5 mmol/L (3.3-5.1); Sodium 135 mmol/L (135-145)
[2023-06-17] MEDS: oxyCODONE HCl Immed Release 5 MG TABLET PO ×4 (02:01→18:29)
[2023-06-17] MEDS: Acetaminophen 325 MG TABLET 650 MG PO ×4 (02:01→21:14)
[2023-06-17 06:00] VITALS: BMI 55.6
[2023-06-17 06:34] LABS: Hematocrit 46.3 % (42.0-52.0); Hemoglobin 14.7 g/dl (14.0-18.0); Mean Corpuscular HGB Conc 31.7 g/dl (31.0-36.0); Mean Corpuscular Hemoglobin 25.5 pg (27.0-33.0); Mean Corpuscular Volume 80.4 fL (80.0-98.0); Mean Platelet Volume 8.9 fL (9.4-12.4); Platelet Count 246 X10*3/uL (160-400); Red Blood Count 5.76 X10*6/uL (4.60-5.80); Red Cell Distribution Width 15.9 % (11.0-16.0); White Blood Count 12.6 X10*3/uL (4.8-10.8)
[2023-06-17 06:53] LABS: Anion Gap 16 (12-20); Blood Urea Nitrogen 12 mg/dL (9-16); Calcium 9.5 mg/dL (8.4-10.2); Carbon Dioxide 27 mmol/L (22-29); Chloride 96 mmol/L (96-108); Creatinine Clr Calc Pharmacy 127.2; Estimated Glomerular Filt Rate > 60; Glucose Fasting 121 mg/dL (60-99); Magnesium 1.9 mg/dL (1.6-2.6); Potassium 3.4 mmol/L (3.3-5.1); Sodium 136 mmol/L (135-145)
[2023-06-17 07:22] LABS: Glucose, Whole Blood 115 mg/dL (60-115)
[2023-06-17 07:44] VITALS: BP 138/73; PULSE 88; RESP 16; TEMP 36.1; O2SAT 97
[2023-06-17] MEDS: acetaZOLAMIDE 250 MG TABLET PO ×2 (08:42→21:13)
[2023-06-17] MEDS: Amiodarone HCL 200 MG TABLET PO ×3 (08:42→21:13)
[2023-06-17] MEDS: Apixaban 5 MG TABLET PO ×2 (08:42→21:13)
--- NOTE | 2023-06-17 08:47 | HO.PM.IMPN ---
Subjective Subjective Date of Service: 06/17/23 Interval History: improving Physical Exam Vital Signs: Vital Signs: Last Vital Signs Temp 97.0 F 06/17/23 07:44 Pulse 88 06/17/23 07:44 Resp 16 06/17/23 07:44 BP 138/73 06/17/23 07:44 Pulse Ox 97 06/17/23 07:44 O2 Del Method Room Air 06/17/23 07:44 O2 Flow Rate 4 06/16/23 11:56 FiO2 35 06/16/23 11:17 BMI result Body Mass Index 55.6 Const: General: cooperative and comfortable Nutritional Appearance: obese morbidly obese Orientation/consciousness: patient oriented x3 Neck: Neck: Yes trachea midline, Yes supple and Yes other ( Difficult to evaluate JVD) Cardio: Rhythm: abnormal rhythm irregularly irregular Heart sounds: S1 normal heart sound present, S2 normal heart sound present, no click, no gallops and no murmurs Neuro: General: patient oriented x3 Extrem: General: No clubbing, No cyanosis and Yes edema ( significant edema) Objective Data Active Medications Acetaminophen (Acetaminophen 325 Mg Tablet) 650 mg PO Q6H PRN PRN Reason: Pain, Mild (Pain Scale 1-3) Last Admin: 06/17/23 02:01 Dose: 650 mg Documented By: ELIDIA Acetazolamide (Acetazolamide 250 Mg Tablet) 250 mg PO BID [facility] Last Admin: 06/17/23 08:42 Dose: 250 mg Documented By: NOLA Amiodarone HCl (Amiodarone Hcl 200 Mg Tablet) 200 mg PO TID [facility] Last Admin: 06/17/23 08:42 Dose: 200 mg Documented By: NOLA Apixaban (Apixaban 5 Mg Tablet) 5 mg PO BID [facility] Last Admin: 06/17/23 08:42 Dose: 5 mg Documented By: NOLA Dextrose (Dextrose 50 % 25 Gm/50 Ml Syringe) 25 gm IVPUSH Q15M PRN; Protocol PRN Reason: per Hypoglycemia Standing Ord. Glucose (Glucose Gel 15 Gm Gel..Gram.) 15 gm PO Q15M PRN; Protocol PRN Reason: per Hypoglycemia Standing Ord. Furosemide 200 mg/ Sodium (Chloride) 100 mls @ 2.5 mls/hr IVCONT .Q24H [facility] Last Admin: 06/16/23 16:40 Dose: 5 mg/hr, 2.5 mls/hr Documented By: DWIGHT Insulin Human Lispro (Insulin Lispro 100 Unit/Ml 3 Ml Vial) 0 unit SUBCUT [facility]; Protocol Last Admin: 06/17/23 08:42 Dose: Not Given Documented By: NOLA Non-Admin Reason: No Insulin Coverage Midazolam HCl (Midazolam Hcl/Pf 2 Mg/2 Ml Vial) 2 mg IVPUSH Q15M PRN PRN Reason: Ventilator synchrony Last Admin: 06/13/23 15:00 Dose: 2 mg Documented By: ALIYA Oxycodone HCl (Oxycodone Hcl Immed Release 5 Mg Tablet) 5 mg PO Q6H PRN PRN Reason: Pain, Moderate(Pain Scale 4-6) Last Admin: 06/17/23 02:01 Dose: 5 mg Documented By: ELIDIA Labs 06/17/23 06:26 06/17/23 06:26 Labs: Laboratory Results - last 24 hr 06/16/23 06/16/23 06/16/23 11:21 17:03 20:42 MCV MCH MCHC RDW Plt Count MPV Absolute Nucleated RBC Nucleated RBC % (auto) Anion Gap Estim Creat Clear Calc Estimated GFR POC Glucose 146 H 134 H 148 H Fasting Glucose Calcium Magnesium 06/16/23 06/17/23 06/17/23 21:12 06:26 07:19 MCV 80.4 80.4 MCH 25.5 L 25.5 L MCHC 31.7 31.7 RDW 15.9 15.9 Plt Count 272 246 MPV 8.6 L 8.9 L Absolute Nucleated RBC 0.000 0.000 Nucleated RBC % (auto) 0.0 0.0 Anion Gap 14 16 Estim Creat Clear Calc 116.2 127.2 Estimated GFR > 60 > 60 POC Glucose 115 Fasting Glucose 143 H 121 H Calcium 9.3 9.5 Magnesium 1.9 Microbiology Microbiology Results: Microbiology 06/11/23 21:35 Blood Culture - Final Blood - Venous No growth after 5 days. 06/11/23 21:17 Blood Culture - Final Blood - Venous No growth after 5 days. Assessment and Plan (1) Encephalopathy acute: Status: Acute Plan 77-year-old male with a past medical history of hypertension, hyperlipidemia, CKD, anemia, alcohol abuse, anxiety, depression, and BPH who was sent to the emergency room from his [facility] facility? for shortness of breath and tachycardia. found to be in new onset rapid afib, chf, and hypoxic and hypercapneic, admitted to icu for bipap, diuresed, attempted cardioversion. now on high flow, heart rate improved but still in afib. downgraded to medical floor Acute metabolic encephalopathy due to acute hypoxic and hypercapnic respiratory failure Due to obesity hypoventilation, acute on chronic right-sided CHF Mental status much improved, now on room air Continue Lasix drip and Diamox BiPAP at night sleep study New onset atrial fibrillation with rapid ventricular response Amiodarone load, apixaban Cardiology following Jeff/cardioversion unsuccessful Morbid obesity Weight loss recommended full code reason for continued hospitalization:iv diuresis Time Spent With Patient Time: Total time managing care of this patient today ____ minutes. Quality Stroke Does the patient have a stroke diagnosis?: No VTE Prior VTE?: No VTE Risk Level:: Medical - moderate - high VTE Device Contraindication: N/A - Device Ordered VTE Drug Contraindication: Treatment Not Indicated
--- NOTE | 2023-06-17 10:10 | PM.PNCARD ---
Subjective Subjective Date of Service: 06/17/23 Principal diagnosis: atrial fibrillation, heart failure. Interval history: Seen and examined at bedside. -2161 ml. On Lasix gtt. Physical Exam Vital Signs: Last Vital Signs Temp 97.0 F 06/17/23 07:44 Pulse 88 06/17/23 07:44 Resp 16 06/17/23 07:44 BP 138/73 06/17/23 07:44 Pulse Ox 97 06/17/23 07:44 O2 Del Method Room Air 06/17/23 07:44 O2 Flow Rate 4 06/16/23 11:56 FiO2 35 06/16/23 11:17 BMI result Body Mass Index 55.6 GENERAL APPEARANCE: in no acute distress, Morbidly obese. SKIN: no suspicious lesions, warm and dry. HEART: no murmurs, irregular rate and rhythm. LUNGS: clear to auscultation bilaterally. ABDOMEN: soft, nontender. EXTREMITIES: 1-2+ edema. PERIPHERAL PULSES: equal. NEUROLOGIC: No gross deficits, AAO X 3 Objective Labs and Meds 06/17/23 06:26 06/17/23 06:26 Lab results: Laboratory Results - last 24 hr 06/16/23 06/16/23 06/16/23 11:21 17:03 20:42 WBC RBC Hgb Hct MCV MCH MCHC RDW Plt Count MPV Absolute Nucleated RBC Nucleated RBC % (auto) Sodium Potassium Chloride Carbon Dioxide Anion Gap BUN Creatinine Estim Creat Clear Calc Estimated GFR POC Glucose 146 H 134 H 148 H Fasting Glucose Calcium Magnesium 06/16/23 06/17/23 06/17/23 21:12 06:26 07:19 WBC 13.5 H 12.6 H RBC 5.57 5.76 Hgb 14.2 14.7 Hct 44.8 46.3 MCV 80.4 80.4 MCH 25.5 L 25.5 L MCHC 31.7 31.7 RDW 15.9 15.9 Plt Count 272 246 MPV 8.6 L 8.9 L Absolute Nucleated RBC 0.000 0.000 Nucleated RBC % (auto) 0.0 0.0 Sodium 135 136 Potassium 3.5 3.4 Chloride 96 96 Carbon Dioxide 29 27 Anion Gap 14 16 BUN 12 12 Creatinine 0.89 0.81 Estim Creat Clear Calc 116.2 127.2 Estimated GFR > 60 > 60 POC Glucose 115 Fasting Glucose 143 H 121 H Calcium 9.3 9.5 Magnesium 1.9 Progress Note: A&P Assessment and plan (1) Cor pulmonale: Status: Acute (2) Atrial fibrillation with rapid ventricular response: Status: Acute Plan 77-year-old male with morbid obesity, Afib and RHF. Diuresing. Still appears to be volume overloaded. He has morbid obesity and clinical exam is challenging. Continue IV diuretics. HR is 90s with amiodarone. Would continue the load. We will follow along. Time Spent With Patient Time: Total time managing care of this patient today ____ minutes. Progress Note: Quality Stroke Does the patient have a stroke diagnosis?: No Procedures Date of Service Date of Service: 06/17/23
--- NOTE | 2023-06-17 10:13 | MHC.CM.PN ---
Per ROUNDS discussion, Patient is not yet medically cleared for dc (IV Lasix); returning to LTC @ SNF is the goal. CM will follow.
[2023-06-17 11:25] LABS: Glucose, Whole Blood 131 mg/dL (60-115)
[2023-06-17 11:53] VITALS: BP 134/75; PULSE 87; RESP 18; TEMP 36.9; O2SAT 95
[2023-06-17 15:22] VITALS: BP 139/79; PULSE 89; RESP 18; TEMP 36.7; O2SAT 95
[2023-06-17 16:23] LABS: Glucose, Whole Blood 118 mg/dL (60-115)
[2023-06-17] MEDS: Furosemide 200 MG in 0.9 % Sodium Chloride 80 ML IVCONT (18:28)
[2023-06-17 19:24] VITALS: BP 132/67; PULSE 84; RESP 18; TEMP 36.7; O2SAT 95
[2023-06-17 20:15] LABS: Glucose, Whole Blood 154 mg/dL (60-115)
[2023-06-17] MEDS: Insulin Lispro 100 UNIT/ML 3 ML VIAL SUBCUT (21:14)
--- NOTE | 2023-06-17 22:34 | PC.RT ---
Pt placed on overnight sleep study on room air.
[2023-06-17 23:17] VITALS: BP 123/59; PULSE 89; RESP 18; TEMP 36.7; O2SAT 93
[2023-06-18] MEDS: oxyCODONE HCl Immed Release 5 MG TABLET PO ×4 (00:29→18:54)
[2023-06-18 03:14] VITALS: BP 126/68; PULSE 83; RESP 18; TEMP 36.7; O2SAT 93
[2023-06-18] MEDS: Acetaminophen 325 MG TABLET 650 MG PO ×4 (03:15→22:55)
[2023-06-18 05:14] VITALS: BMI 55.6
[2023-06-18 06:38] LABS: Hematocrit 47.4 % (42.0-52.0); Hemoglobin 15.1 g/dl (14.0-18.0); Mean Corpuscular HGB Conc 31.9 g/dl (31.0-36.0); Mean Corpuscular Hemoglobin 25.7 pg (27.0-33.0); Mean Corpuscular Volume 80.7 fL (80.0-98.0); Mean Platelet Volume 9.5 fL (9.4-12.4); Platelet Count 278 X10*3/uL (160-400); Red Blood Count 5.87 X10*6/uL (4.60-5.80); White Blood Count 12.4 X10*3/uL (4.8-10.8)
[2023-06-18 07:01] LABS: Anion Gap 15 (12-20); Blood Urea Nitrogen 14 mg/dL (9-16); Calcium 9.6 mg/dL (8.4-10.2); Carbon Dioxide 28 mmol/L (22-29); Chloride 95 mmol/L (96-108); Creatinine Clr Calc Pharmacy 137.4; Estimated Glomerular Filt Rate > 60; Glucose Fasting 121 mg/dL (60-99); Magnesium 1.9 mg/dL (1.6-2.6); Potassium 3.1 mmol/L (3.3-5.1); Sodium 135 mmol/L (135-145)
[2023-06-18 07:02] LABS: B Type Natriuretic Peptide 30 pg/mL (<100)
[2023-06-18 07:39] VITALS: BP 132/87; PULSE 87; RESP 24; TEMP 36.9; O2SAT 93
[2023-06-18 07:47] LABS: Glucose, Whole Blood 126 mg/dL (60-115)
[2023-06-18] MEDS: Amiodarone HCL 200 MG TABLET PO ×3 (08:50→21:16)
[2023-06-18] MEDS: Apixaban 5 MG TABLET PO ×2 (08:50→21:16)
[2023-06-18] MEDS: acetaZOLAMIDE 250 MG TABLET PO ×2 (08:51→21:16)
[2023-06-18 10:51] VITALS: BP 128/64; PULSE 90; RESP 20; TEMP 36.4; O2SAT 95
--- NOTE | 2023-06-18 11:07 | P.PNIM_ITS ---
Subjective Subjective Date of Service: 06/18/23 Interval History: improving Physical Exam 2 Vital Signs: Vital Signs: Last Vital Signs Temp 97.6 F 06/18/23 10:51 Pulse 90 06/18/23 10:51 Resp 20 06/18/23 10:51 BP 128/64 06/18/23 10:51 Pulse Ox 95 06/18/23 10:51 O2 Del Method Room Air 06/18/23 10:51 O2 Flow Rate 4 06/16/23 11:56 FiO2 35 06/16/23 11:17 BMI result Body Mass Index 55.6 GENERAL APPEARANCE: in no acute distress, Morbidly obese. SKIN: no suspicious lesions, warm and dry. HEART: no murmurs, irregular rate and rhythm. LUNGS: clear to auscultation bilaterally. ABDOMEN: soft, nontender. EXTREMITIES: 1-2+ edema. PERIPHERAL PULSES: equal. NEUROLOGIC: No gross deficits, AAO X 3 Objective Data Active Medications Acetaminophen (Acetaminophen 325 Mg Tablet) 650 mg PO Q6H PRN PRN Reason: Pain, Mild (Pain Scale 1-3) Last Admin: 06/18/23 11:00 Dose: 650 mg Documented By: GUSTABO Acetazolamide (Acetazolamide 250 Mg Tablet) 250 mg PO BID [facility] Last Admin: 06/18/23 08:51 Dose: 250 mg Documented By: GUSTABO Amiodarone HCl (Amiodarone Hcl 200 Mg Tablet) 200 mg PO TID [facility] Last Admin: 06/18/23 08:50 Dose: 200 mg Documented By: GUSTABO Apixaban (Apixaban 5 Mg Tablet) 5 mg PO BID [facility] Last Admin: 06/18/23 08:50 Dose: 5 mg Documented By: GUSTABO Dextrose (Dextrose 50 % 25 Gm/50 Ml Syringe) 25 gm IVPUSH Q15M PRN; Protocol PRN Reason: per Hypoglycemia Standing Ord. Glucose (Glucose Gel 15 Gm Gel..Gram.) 15 gm PO Q15M PRN; Protocol PRN Reason: per Hypoglycemia Standing Ord. Furosemide 200 mg/ Sodium (Chloride) 100 mls @ 2.5 mls/hr IVCONT .Q24H [facility] Last Admin: 06/17/23 18:28 Dose: 5 mg/hr, 2.5 mls/hr Documented By: HO.GUILMAT Insulin Human Lispro (Insulin Lispro 100 Unit/Ml 3 Ml Vial) 0 unit SUBCUT QIDACHLevar [facility]; Protocol Last Admin: 06/18/23 08:02 Dose: Not Given Documented By: GUSTABO Non-Admin Reason: No Insulin Coverage Midazolam HCl (Midazolam Hcl/Pf 2 Mg/2 Ml Vial) 2 mg IVPUSH Q15M PRN PRN Reason: Ventilator synchrony Last Admin: 06/13/23 15:00 Dose: 2 mg Documented By: ALIYA Oxycodone HCl (Oxycodone Hcl Immed Release 5 Mg Tablet) 5 mg PO Q6H PRN PRN Reason: Pain, Moderate(Pain Scale 4-6) Last Admin: 06/18/23 06:33 Dose: 5 mg Documented By: LIBBY Labs 06/18/23 05:39 06/18/23 05:39 Labs: Laboratory Results - last 24 hr 06/17/23 06/17/23 06/17/23 11:22 16:19 20:12 MCV MCH MCHC RDW Plt Count MPV Absolute Nucleated RBC Nucleated RBC % (auto) Anion Gap Estim Creat Clear Calc Estimated GFR POC Glucose 131 H 118 H 154 H Fasting Glucose Calcium Magnesium B-Natriuretic Peptide 06/18/23 06/18/23 05:39 07:44 MCV 80.7 MCH 25.7 L MCHC 31.9 RDW 16.0 Plt Count 278 MPV 9.5 Absolute Nucleated RBC 0.000 Nucleated RBC % (auto) 0.0 Anion Gap 15 Estim Creat Clear Calc 137.4 Estimated GFR > 60 POC Glucose 126 H Fasting Glucose 121 H Calcium 9.6 Magnesium 1.9 B-Natriuretic Peptide 30 Assessment and Plan (1) Encephalopathy acute: Status: Acute Plan 77-year-old male with a past medical history of hypertension, hyperlipidemia, CKD, anemia, alcohol abuse, anxiety, depression, and BPH who was sent to the emergency room from his custodial facility? for shortness of breath and tachycardia. found to be in new onset rapid afib, chf, and hypoxic and hypercapneic, admitted to icu for bipap, diuresed, attempted cardioversion. heart rate improved but still in afib. downgraded to medical floor Acute metabolic encephalopathy due to acute hypoxic and hypercapnic respiratory failure Due to obesity hypoventilation, acute on chronic right-sided CHF Mental status much improved, now on room air Continue Lasix drip and Diamox, monitor labs closely for signs of hypovolemia BiPAP at night sleep study performed 06/17-, follow up report New onset atrial fibrillation with rapid ventricular response Amiodarone load (end 06/28/23 then maintenance), apixaban Cardiology following Jeff/cardioversion unsuccessful Morbid obesity Weight loss recommended debility will put in for PT eval full code reason for continued hospitalization:iv diuresis Time Spent With Patient Time: Total time managing care of this patient today ____ minutes. Quality Stroke Does the patient have a stroke diagnosis?: No VTE Prior VTE?: No VTE Risk Level:: Medical - moderate - high VTE Device Contraindication: N/A - Device Ordered VTE Drug Contraindication: Treatment Not Indicated
[2023-06-18 11:43] LABS: Glucose, Whole Blood 128 mg/dL (60-115)
--- NOTE | 2023-06-18 12:07 | PM.PNCARD ---
Subjective Subjective Date of Service: 06/18/23 Principal diagnosis: atrial fibrillation, heart failure. Interval history: Seen examined at bedside. On Lasix drip. Hypokalemic. Physical Exam Vital Signs: Last Vital Signs Temp 97.6 F 06/18/23 10:51 Pulse 90 06/18/23 10:51 Resp 20 06/18/23 10:51 BP 128/64 06/18/23 10:51 Pulse Ox 95 06/18/23 10:51 O2 Del Method Room Air 06/18/23 10:51 O2 Flow Rate 4 06/16/23 11:56 FiO2 35 06/16/23 11:17 BMI result Body Mass Index 55.6 GENERAL APPEARANCE: in no acute distress, Morbidly obese. SKIN: no suspicious lesions, warm and dry. HEART: no murmurs, irregular rate and rhythm. No obvious JVD. LUNGS: clear to auscultation bilaterally. ABDOMEN: soft, nontender. EXTREMITIES: 1-2+ edema. PERIPHERAL PULSES: equal. NEUROLOGIC: No gross deficits, AAO X 3 Objective Labs and Meds 06/18/23 05:39 06/18/23 05:39 Lab results: Laboratory Results - last 24 hr 06/17/23 06/17/23 06/18/23 16:19 20:12 05:39 WBC 12.4 H RBC 5.87 H Hgb 15.1 Hct 47.4 MCV 80.7 MCH 25.7 L MCHC 31.9 RDW 16.0 Plt Count 278 MPV 9.5 Absolute Nucleated RBC 0.000 Nucleated RBC % (auto) 0.0 Sodium 135 Potassium 3.1 L Chloride 95 L Carbon Dioxide 28 Anion Gap 15 BUN 14 Creatinine 0.75 Estim Creat Clear Calc 137.4 Estimated GFR > 60 POC Glucose 118 H 154 H Fasting Glucose 121 H Calcium 9.6 Magnesium 1.9 B-Natriuretic Peptide 30 06/18/23 06/18/23 07:44 10:57 WBC RBC Hgb Hct MCV MCH MCHC RDW Plt Count MPV Absolute Nucleated RBC Nucleated RBC % (auto) Sodium Potassium Chloride Carbon Dioxide Anion Gap BUN Creatinine Estim Creat Clear Calc Estimated GFR POC Glucose 126 H 128 H Fasting Glucose Calcium Magnesium B-Natriuretic Peptide Progress Note: A&P Assessment and plan (1) Atrial fibrillation with rapid ventricular response: Status: Acute (2) Cor pulmonale: Status: Acute Plan 77-year-old gentleman with morbid obesity, right heart failure and atrial fibrillation. He underwent WENDY cardioversion which was unsuccessful. He has been started on amiodarone since then. On Lasix drip currently. Physical examination is quite challenging given his body habitus. I do not see any obvious JVD. His creatinine and BUN has been stable. I had a discussion with hospitalist service and we have decided to continue Lasix drip for now. Monitor potassium and replete. Start spironolactone 25 mg daily. We will follow along with you. Thank you for allowing me to participate in the care of your patient. Please feel free to contact me if you have any questions. Time Spent With Patient Time: Total time managing care of this patient today ____ minutes. Progress Note: Quality Stroke Does the patient have a stroke diagnosis?: No Procedures Date of Service Date of Service: 06/18/23
[2023-06-18] MEDS: Spironolactone 25 MG TABLET PO (12:40)
[2023-06-18 15:00] VITALS: BP 125/72; PULSE 82; RESP 20; TEMP 36.7; O2SAT 94
[2023-06-18] MEDS: Furosemide 200 MG in 0.9 % Sodium Chloride 80 ML IVCONT (16:45)
[2023-06-18] MEDS: Insulin Lispro 100 UNIT/ML 3 ML VIAL SUBCUT ×2 (16:54→21:16)
[2023-06-18 16:58] LABS: Glucose, Whole Blood 162 mg/dL (60-115)
[2023-06-18 19:25] VITALS: BP 147/70; PULSE 87; RESP 22; TEMP 37.4; O2SAT 94
[2023-06-18 20:12] LABS: Glucose, Whole Blood 156 mg/dL (60-115)
[2023-06-19] VITALS: BP 134/74; PULSE 70; RESP 16; TEMP 36.9; O2SAT 96
--- NOTE | 2023-06-19 00:08 | PC.RT ---
Pt refusing CPAP
[2023-06-19] MEDS: oxyCODONE HCl Immed Release 5 MG TABLET PO ×2 (01:36→10:24)
[2023-06-19 04:00] VITALS: BP 124/80; PULSE 77; RESP 18; TEMP 36.3; O2SAT 97
[2023-06-19 05:42] VITALS: BMI 53.3
[2023-06-19 07:04] LABS: Hematocrit 46.4 % (42.0-52.0); Hemoglobin 14.9 g/dl (14.0-18.0); Mean Corpuscular HGB Conc 32.1 g/dl (31.0-36.0); Mean Corpuscular Hemoglobin 25.8 pg (27.0-33.0); Mean Corpuscular Volume 80.4 fL (80.0-98.0); Mean Platelet Volume 9.2 fL (9.4-12.4); Platelet Count 292 X10*3/uL (160-400); Red Blood Count 5.77 X10*6/uL (4.60-5.80); Red Cell Distribution Width 15.8 % (11.0-16.0); White Blood Count 12.4 X10*3/uL (4.8-10.8)
[2023-06-19 07:21] LABS: Anion Gap 15 (12-20); Blood Urea Nitrogen 16 mg/dL (9-16); Calcium 9.6 mg/dL (8.4-10.2); Carbon Dioxide 27 mmol/L (22-29); Chloride 95 mmol/L (96-108); Creatinine Clr Calc Pharmacy 122.4; Estimated Glomerular Filt Rate > 60; Glucose Fasting 123 mg/dL (60-99); Potassium 3.2 mmol/L (3.3-5.1); Sodium 134 mmol/L (135-145)
[2023-06-19 07:22] VITALS: BP 127/71; PULSE 77; RESP 18; TEMP 36.2; O2SAT 94
[2023-06-19 07:34] LABS: Glucose, Whole Blood 138 mg/dL (60-115)
[2023-06-19] MEDS: acetaZOLAMIDE 250 MG TABLET PO (07:59)
[2023-06-19] MEDS: Amiodarone HCL 200 MG TABLET PO ×2 (07:59→14:52)
[2023-06-19] MEDS: Apixaban 5 MG TABLET PO (07:59)
[2023-06-19] MEDS: Spironolactone 25 MG TABLET PO (07:59)
[2023-06-19] MEDS: Potassium Chloride Packet 20 MEQ PACKET 40 MEQ PO (08:30)
--- NOTE | 2023-06-19 10:30 | MHC.CM.PN ---
Per ROUNDS discussion, Patient will be medically cleared for dc today to return to LTC. Patient will return to LTC at [facility] today at 1PM, via [facility]. CM left a detailed message for Son/Prashanth @ [phone], informing him of the dc plan and addressing the IMM.
[2023-06-19 11:06] VITALS: BP 180/90; PULSE 94; RESP 18; TEMP 36.1; O2SAT 94
[2023-06-19 11:22] LABS: Glucose, Whole Blood 149 mg/dL (60-115)
--- NOTE | 2023-06-19 11:56 | P.DS_ITS ---
DS: Providers Provider Date of Service: 06/19/23 Date of admission: 06/12/23 01:43 Primary care physician: Spring Licona MD Consults: 06/13/23 08:20 Consult to Cardiology Routine Consulting Provider: [facility] Reason for consultation: new afib, chf DS: Diagnosis Discharge Diagnosis (1) Atrial fibrillation with rapid ventricular response: Status: Acute (2) Cor pulmonale: Status: Acute (3) Hypertensive 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: Status: Acute (4) Encephalopathy acute: Status: Acute (5) Acute on chronic respiratory failure with hypoxia and hypercapnia: Status: Acute DS: Summary Hospital Course Hospital Course: Admission note HPI Mr. Funes is a 77-year-old male with a past medical history of hypertension, hyperlipidemia, CKD, anemia, alcohol abuse, anxiety, depression, and BPH who was [facility] the emergency [facility]? for shortness of breath and tachycardia. Prior to arrival his? O2 sats were in the 50s on room air with frothing and obtundation. [facility] staff also reported a complaint of chest discomfort.? On? arrival to the ED, ?the patient's blood pressure 133/57, heart rate 120,? respiratory rate 18, O2 Sat 96% on 3LNC. Laboratory data significant for? WBC 14.8,? sodium 132, potassium 5.2, chloride 92, CO2 31.? Urine specific gravity greater than 1.030, 2+ protein, 1+ blood. ? VBG showed a pH of 7.21, pCO2 83, PO2 46, HC03 33,? base excess 2.2. The patient was given diltiazem 25 mg IV push and started on a diltiazem drip.? He received apixaban 5 mg.? Ceftriaxone 1 g. ? He was placed on BiPAP.? Hospital course Admitted for acute metabolic encephalopathy due to acute hypoxic and hypercapnic respiratory failure Due to obesity hypoventilation, acute on chronic right-sided CHF requiring admission to ICU and placement on BiPAP with good response over the course of hospital stay. Mental status much improved and weaned down to room air. Treated with Lasix drip and Diamox with good response. BiPAP at night. sleep study performed with recommendations New onset atrial fibrillation with rapid ventricular response. Amiodarone loaded and started on maintenance dose, apixaban as he was followed by Cardiology who tried WENDY with cardioversion but was unsuccessful. rate controlled at time of discharge. Morbid obesity. Weight loss recommended. Hypokalemia replaced. Discontinue Aspirin for now Start Eliquis 5 mg twice daily Amiodarone 200 mg daily Start Spironolactone and Diamox Increase Lasix to 40 mg daily Follow with cardiology as outpatient. Time Attestation Discharge coordination time: Greater than 30 minutes Quality: Safe Use of Opioids Does Pt have an Active Cancer Diagnosis on the Problem List?: No Quality: Stroke Does the patient have a stroke diagnosis?: No Physical Exam 2 Vital Signs: Vital Signs: Last Vital Signs Temp 97.0 F 06/19/23 11:06 Pulse 94 06/19/23 11:06 Resp 18 06/19/23 11:06 BP 180/90 H 06/19/23 11:06 Pulse Ox 94 06/19/23 11:06 O2 Del Method Room Air 06/19/23 11:06 O2 Flow Rate 4 06/16/23 11:56 FiO2 35 06/16/23 11:17 BMI result Body Mass Index 53.3 Const: Other: Constitutional : Awake, interactive, not in distress Neck : Normal inspection, Supple Cardiovascular : RRR, no JVP, no lower extremity edema Respiratory : good bilateral air entry, no crackles, wheezes or rhonchi Gastrointestinal: soft, lax, Normal bowel sounds, Non tender Skin : Warm, Dry Neurological : Alert & oriented to self and place, No focal deficit DS: Data Data Completed and Pending Labs on day of discharge: Laboratory Results - last 24 hr 06/18/23 06/18/23 06/19/23 16:15 20:05 06:27 WBC 12.4 H RBC 5.77 Hgb 14.9 Hct 46.4 MCV 80.4 MCH 25.8 L MCHC 32.1 RDW 15.8 Plt Count 292 MPV 9.2 L Absolute Nucleated RBC 0.000 Nucleated RBC % (auto) 0.0 Sodium 134 L Potassium 3.2 L Chloride 95 L Carbon Dioxide 27 Anion Gap 15 BUN 16 Creatinine 0.82 Estim Creat Clear Calc 122.4 Estimated GFR > 60 POC Glucose 162 H 156 H Fasting Glucose 123 H Calcium 9.6 06/19/23 06/19/23 07:20 11:08 WBC RBC Hgb Hct MCV MCH MCHC RDW Plt Count MPV Absolute Nucleated RBC Nucleated RBC % (auto) Sodium Potassium Chloride Carbon Dioxide Anion Gap BUN Creatinine Estim Creat Clear Calc Estimated GFR POC Glucose 138 H 149 H Fasting Glucose Calcium Imaging Chest x-ray: Radiologist's impression: ITS Impressions Chest X-Ray 06/11/23 20:32 IMPRESSION: Slightly enlarged cardiac silhouette and question pulmonary venous redistribution. Head CT 06/11/23 22:31 IMPRESSION: No acute intracranial pathology. Chronic small vessel ischemic disease and volume loss. Chest CTA 06/12/23 00:25 IMPRESSION: 1. No central pulmonary embolus identified. However, assessment of much of the segmental and subsegmental vasculature is significantly limited due to respiratory motion artifact, and therefore emboli at these levels cannot be excluded. 2. Mild cardiomegaly. 3. Cholelithiasis. VTE: negative. Chest X-Ray 06/14/23 08:01 IMPRESSION: Orogastric tube projects over the proximal stomach. Discharge Plan Discharge Anticipated Discharge Date/Time: 06/19/23 11:34 Patient Disposition: [facility] Discharge Diagnosis: Heart failure exacerbation Referrals: Spring Licona MD [Primary Care Provider] - 1 Week Discharge Medications: New Eliquis 5 mg Tablet 5 mg PO BID Qty: 60 0RF amiodarone 200 mg Tablet 200 mg PO TID Qty: 30 0RF acetazolamide 250 mg Tablet 250 mg PO BID Qty: 60 0RF spironolactone 25 mg Tablet 25 mg PO DAILY Qty: 30 0RF Protocol: Hold for SBP< HOLD for SBP < : 90 furosemide 40 mg tablet 40 mg PO QAM Qty: 30 0RF Continued gabapentin 600 mg tablet 600 mg PO TID atorvastatin 20 mg tablet 1 tab PO DAILY sertraline 100 mg tablet 1 tab PO DAILY amlodipine 2.5 mg tablet 1 tab PO DAILY tamsulosin 0.4 mg capsule 1 cap PO BEDTIME trazodone 100 mg tablet 1 tab PO BEDTIME albuterol sulfate [ProAir HFA] 90 mcg/actuation Hfa Aerosol Inhaler 2 puff INHALATION Q4H PRN (Reason: Wheezing) diclofenac sodium 1 % gel 1 g topical Q6H PRN (Reason: Pain) Protocol: Apply to: Apply to: BOTH KNEES polyvinyl alcohol [Artificial Tears (polyvin alc)] 1.4 % Drops 1 drp OPHTHALMIC (EYE) BID thiamine HCl (vitamin B1) 100 mg Tablet 100 mg PO DAILY cholecalciferol (vitamin D3) 25 mcg (1,000 unit) Tablet 25 mcg PO DAILY ipratropium-albuterol 0.5 mg-3 mg(2.5 mg base)/3 mL Solution For Nebulization 3 ml INHALATION Q4H PRN (Reason: Shortness Of Breath) Debrox 6.5 % Drops 5 drp OTIC (EARS) BEDTIME Rx Instructions: TAKE FOR 6 DAYS PER MONTH STARTING ON THE AND ENDING ON THE OF EACH MONTH hydrocortisone 1 % Cream 1 appl TOPICAL BID PRN (Reason: DRY SKIN AND ITCHING) oxycodone 5 mg tablet 1 tab PO BID PRN (Reason: Pain) Qty: 10 0RF Rx Instructions: DOSES MUST BE GIVEN AT LEAST 6 HOURS APART Discontinued aspirin 81 mg Tablet,Delayed Release (Dr/Ec) 81 mg PO DAILY furosemide [Lasix] 20 mg Tablet 20 mg PO DAILY Discharge Orders: Discharge Order (Routine); Ordered 06/19/23 Ordered By: Shanta Wayne Diet: Low salt diet Activity on Discharge: As tolerated Stand Alone Forms: Patient Portal Discharge page Care Plan Goals: Read below Health Concerns: Read below Plan of Treatment: Read below Assessment: admitted for treatment of heart failure exacerbation and atrial fibrillation of new onset. 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 Discontinue Aspirin for now Start Eliquis 5 mg twice daily Amiodarone 200 mg daily Start Spironolactone and Diamox Increase Lasix to 40 mg daily Follow with cardiology as outpatient.
[2023-06-19 12:53] VITALS: BP 144/72
[2023-06-19] MEDS: Acetaminophen 325 MG TABLET 650 MG PO (14:52)
== END 2023-06-19 15:07 | disposition skilled nursing facility (03) | DRG 291 ==
LOC: HO.ED 06-12 01:40 → HO.EDOVER 06-12 01:49 → HO.ICU 06-12 02:17 → HO.IMC 06-15 15:05
PROVIDERS: Internal Medicine; Internal Medicine Cardiovascular Disease; Admitting Provider Nurse Practitioner Family; Emergency Provider Internal Medicine; PCP Internal Medicine; Visit Provider Student in an Organized Health Care Education/Training Program
DX: I11.0 Hypertensive heart disease with heart failure (principal); G93.41 Metabolic encephalopathy; J96.21 Acute and chronic respiratory failure with hypoxia; J96.22 Acute and chronic respiratory failure with hypercapnia; E66.2 Morbid (severe) obesity with alveolar hypoventilation; Z68.43 Body mass index [BMI] 50.0-59.9, adult; I48.91 Unspecified atrial fibrillation; E87.5 Hyperkalemia; I50.813 Acute on chronic right heart failure; I27.81 Cor pulmonale (chronic); F11.21 Opioid dependence, in remission; I87.303 Chronic venous hypertension (idiopathic) without complications of bilateral lower extremity; I50.82 Biventricular heart failure; Z71.3 Dietary counseling and surveillance; Z20.822 Contact with and (suspected) exposure to COVID-19; Z91.199 Patient's noncompliance with other medical treatment and regimen due to unspecified reason; Z79.899 Other long term (current) drug therapy
CPT/HCPCS: 0241U; 36415; 70450; 71045; 71275; 80048; 80053; 80307; 81001; 82040; 82533; 82803; 82947; 83036; 83605; 83735; 83880; 84100; 84300; 84443; 84484; 85025; 85027; 85379; 85610; 85730; 87040; 87640; 87641; 93005; 93306; 94002; 94003; 94799; 95806; 99285; C1758; J0282; J0283; J0696; J1160; J1650; J1940; J2250; J3370; J3371; Q9967

== ENCOUNTER 2023-06-12 01:43 | Outpatient (BNV) | payer OTHER, SELFPAY | END 2023-06-12 07:00 | PROVIDERS: Admitting Provider Nurse Practitioner Family; Emergency Provider Internal Medicine; Visit Provider Internal Medicine Cardiovascular Disease | DX: I48.91 Unspecified atrial fibrillation (principal) | CPT/HCPCS: 93306 ==

== ENCOUNTER 2023-06-12 01:43 | Outpatient (BNV) | payer OTHER, SELFPAY | END 2023-06-13 10:14 | PROVIDERS: Admitting Provider Nurse Practitioner Family; Emergency Provider Internal Medicine; PCP Internal Medicine; Visit Provider Internal Medicine Cardiovascular Disease | DX: I31.39 Other pericardial effusion (noninflammatory) (principal); I35.8 Other nonrheumatic aortic valve disorders | CPT/HCPCS: 93312; 93320; 93325 ==

== ENCOUNTER 2023-06-12 01:43 | Outpatient (BNV) | payer OTHER, SELFPAY | END 2023-06-17 08:47 | PROVIDERS: Admitting Provider Nurse Practitioner Family; Emergency Provider Internal Medicine; PCP Internal Medicine; Visit Provider Internal Medicine | DX: G47.10 Hypersomnia, unspecified (principal); J96.21 Acute and chronic respiratory failure with hypoxia | CPT/HCPCS: 95806 ==

== ENCOUNTER → 2023-06-12 01:43 | Outpatient (BNV) | payer OTHER, SELFPAY | PROVIDERS: Admitting Provider Nurse Practitioner Family; Emergency Provider Internal Medicine; PCP Internal Medicine; Visit Provider Internal Medicine Cardiovascular Disease | DX: J96.21 Acute and chronic respiratory failure with hypoxia (principal); J96.22 Acute and chronic respiratory failure with hypercapnia; I27.81 Cor pulmonale (chronic); I48.91 Unspecified atrial fibrillation | CPT/HCPCS: 92960; 99223; 99232; 99233 ==

== ENCOUNTER → 2023-06-12 01:43 | Outpatient (BNV) | payer OTHER, SELFPAY | PROVIDERS: Admitting Provider Nurse Practitioner Family; Emergency Provider Internal Medicine; Visit Provider Internal Medicine Cardiovascular Disease | DX: J96.21 Acute and chronic respiratory failure with hypoxia (principal); J96.22 Acute and chronic respiratory failure with hypercapnia | CPT/HCPCS: 31500; 99291 ==

== ENCOUNTER → 2023-06-12 01:43 | Outpatient (BNV) | payer OTHER, SELFPAY | PROVIDERS: Admitting Provider Nurse Practitioner Family; Emergency Provider Internal Medicine; PCP Internal Medicine; Visit Provider Internal Medicine | DX: I48.91 Unspecified atrial fibrillation (principal); I27.81 Cor pulmonale (chronic); I11.0 Hypertensive heart disease with heart failure; I50.82 Biventricular heart failure; G93.40 Encephalopathy, unspecified; J96.21 Acute and chronic respiratory failure with hypoxia; J96.22 Acute and chronic respiratory failure with hypercapnia | CPT/HCPCS: 99233; 99239 ==

== ENCOUNTER 2023-07-17 19:27 | Emergency (ER) | payer OTHER, SELFPAY ==
--- NOTE | ~2023-07-17 | XR_ITS ---
EXAMINATION: XR CHEST CLINICAL INFORMATION: Dyspnea COMPARISON: Previous chest x-rays most recent 06/14/2023 TECHNIQUE: Frontal view of the chest was obtained. FINDINGS: The cardiac silhouette is enlarged but stable. Hilar and mediastinal contours are unremarkable. The lung volumes are low. There is crowding of the central bronchovascular markings. Low lung volumes. The lungs are otherwise clear. No pleural effusion or pneumothorax. Degenerative changes of the spine and right shoulder. XR/XR chest 1V IMPRESSION: No evidence for acute disease in the chest. Stable enlargement of the cardiac silhouette and low lung volumes.
--- NOTE | 2023-07-17 19:37 | ECG_ITS ---
Test Reason : DYSPNEA Blood Pressure : / mmHG Vent. Rate : 104 BPM Atrial Rate : 187 BPM P-R Int : 000 ms QRS Dur : 098 ms QT Int : 308 ms P-R-T Axes : 000 092 063 degrees QTc Int : 405 ms Atrial fibrillation Poor data quality RSR' or QR pattern in V1 suggests right ventricular conduction delay Nonspecific ST abnormality Rightward axis Abnormal ECG When compared with ECG of 11-JUN-2023 20:17, No significant changes seen Referred By: Generic ED Physician Electronically Signed By:KATLIN BONILLA MD
[2023-07-17 19:41] VITALS: BP 131/67; BP 132/88; PULSE 103; PULSE 82; RESP 20; O2SAT 92; BMI 55.2
[2023-07-17 19:46] VITALS: BP 131/67; PULSE 103; RESP 20; TEMP 36.8; O2SAT 92
--- NOTE | 2023-07-17 19:48 | PC.NURSE ---
Pt presents to ED via AMS form [facility]. EMS reported pt was having difficulty breathing and got a duoneb at [facility]. EMS found oxygen in high 80's/low90's on 4 LPM O2 via NC. EMS gave a duoneb and pt O2 went up to 95%. Pt has been denying difficulty breathing or pain anywhere. No audible wheezez, equal rise and fall. Pt is A&Ox4, GCS 15, with cool, dry skin. Pt has hx of COPD. Pt has been admitted at this hospital for difficulty breathing in the past. Pt was transferred to [facility], IV placed in the right AC, labs drawn, EKG being obtained at this time. Pt waiting ED provider at this time.
[2023-07-17 20:00] VITALS: BP 141/63; PULSE 87; TEMP 37.1; O2SAT 94
[2023-07-17 20:07] LABS: MANUAL DIFF FLAG NO
[2023-07-17 20:09] LABS: Basophils Percent Auto 0.4 % (0-2); Eosinophils Absolute Auto 0.1 X10*3/uL (0.0-0.4); Eosinophils Percent Auto 0.6 % (0-4); Hematocrit 48.9 % (42.0-52.0); Hemoglobin 14.6 g/dl (14.0-18.0); Imm Gran Abs Auto 0.06 X10*3/uL (0.00-0.03); Imm Gran Pct Auto 0.6 % (0.0-0.4); Lymphocytes Percent Auto 9.6 % (20-40); Mean Corpuscular HGB Conc 29.9 g/dl (31.0-36.0); Mean Platelet Volume 9.1 fL (9.4-12.4); Monocytes Absolute Auto 0.7 X10*3/uL (0.1-1.2); Monocytes Percent Auto 6.2 % (2-11); Neutrophils Absolute Auto 8.9 x10*3/uL (2.0-8.3); Neutrophils Percent Auto 82.6 % (45-73); Platelet Count 265 X10*3/uL (160-400); Red Blood Count 5.62 X10*6/uL (4.60-5.80); Red Cell Distribution Width 15.7 % (11.0-16.0); White Blood Count 10.8 X10*3/uL (4.8-10.8)
[2023-07-17 20:24] LABS: Anion Gap 12 (12-20); Blood Urea Nitrogen 16 mg/dL (9-16); Calcium 9.7 mg/dL (8.4-10.2); Carbon Dioxide 36 mmol/L (22-29); Chloride 97 mmol/L (96-108); Creatinine Clr Calc Pharmacy 132.5; Estimated Glomerular Filt Rate > 60; Glucose Random 198 mg/dL (60-115); Potassium 4.5 mmol/L (3.3-5.1); Sodium 140 mmol/L (135-145)
--- NOTE | 2023-07-17 22:25 | ED_ITS ---
HPI - SOB/Dyspnea General Chief Complaint: Dyspnea Stated Complaint: Shortness of breath Time Seen by Provider: 07/17/23 21:42 Source: patient, EMS and other Mode of arrival: EMS History of Present Illness HPI Narrative: This is a 77-year-old male who is brought in from a long-term care facility via EMS and staff there was concerned that his oxygen was found in the high 80s/low 90s. Patient is on oxygen at baseline and once he was placed on oxygen according to EMS it increased to 95%. Patient denies shortness of breath or chest pain and denies any recent sore throat or cough. Related Data Home Medications Medication Instructions Recorded Confirmed albuterol sulfate 90 mcg/actuation 2 puff inhalation Q4H PRN Wheezing 04/08/22 06/12/23 aerosol inhaler (ProAir HFA) amlodipine 2.5 mg tablet 1 tab PO DAILY 04/08/22 06/12/23 atorvastatin 20 mg tablet 1 tab PO DAILY 04/08/22 06/12/23 cholecalciferol (vitamin D3) 25 25 mcg PO DAILY 04/08/22 06/12/23 mcg (1,000 unit) tablet diclofenac sodium 1 % topical gel 1 g topical Q6H PRN Pain 04/08/22 06/12/23 gabapentin 600 mg tablet 600 mg PO TID 04/08/22 06/12/23 polyvinyl alcohol 1.4 % eye drops 1 drp ophthalmic (eye) BID 04/08/22 06/12/23 (Artificial Tears (polyvinyl alcohol)) sertraline 100 mg tablet 1 tab PO DAILY 04/08/22 06/12/23 tamsulosin 0.4 mg capsule 1 cap PO BEDTIME 04/08/22 06/12/23 thiamine HCl (vitamin B1) 100 mg 100 mg PO DAILY 04/08/22 06/12/23 tablet trazodone 100 mg tablet 1 tab PO BEDTIME 04/08/22 06/12/23 carbamide peroxide 6.5 % ear drops 5 drp otic (ears) BEDTIME 06/12/23 06/12/23 (Debrox) hydrocortisone 1 % topical cream 1 appl topical BID PRN DRY SKIN 06/12/23 06/12/23 AND ITCHING ipratropium 0.5 mg-albuterol 3 mg 3 ml inhalation Q4H PRN Shortness 06/12/23 06/12/23 (2.5 mg base)/3 mL nebulization Of Breath soln Previous Rx's Medication Instructions Recorded acetazolamide 250 mg tablet 250 mg PO BID #60 tabs 06/19/23 amiodarone 200 mg tablet 200 mg PO TID #30 tabs 06/19/23 apixaban 5 mg tablet (Eliquis) 5 mg PO BID #60 tabs 06/19/23 furosemide 40 mg tablet 40 mg PO QAM #30 tabs 06/19/23 oxycodone 5 mg tablet 1 tab PO BID PRN Pain #10 tabs 06/19/23 spironolactone 25 mg tablet 25 mg PO DAILY #30 tabs 06/19/23 Allergies Allergy/AdvReac Type Severity Reaction Status Date / Time No Known Allergies Allergy Verified 04/07/22 18:25 Review of Systems 2 Review of Systems: Pertinent positives and negatives as stated in HPI [facility] Past Medical History Source: nursing notes reviewed Medical History Hypertensive 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 Cor pulmonale Atrial fibrillation with rapid ventricular response Unsteady gait HTN (hypertension) CKD (chronic kidney disease) Alcoholism Anemia Social History Social History Household Members: Other Household Members Other:: faclity Housing: Detention Do you presently have visiting nurse or other home services: Yes ([facility] pt) Unable to assess alcohol history related to: Unable to respond Patient Tobacco Use Status: Never used Tobacco Smoked in Last 30 Days: No Use of substances other than those prescribed or required for medical reasons: No Advance Directives: Yes Advance Directives on File: Yes Advance Directives Date on File: 04/08/22 service: No Current occupational status: retired Physical Exam 2 Vital Signs: Vital Signs: Last Vital Signs Temp 98.7 F 07/17/23 20:00 Pulse 87 07/17/23 20:00 Resp 20 07/17/23 19:46 BP 141/63 H 07/17/23 20:00 Pulse Ox 94 07/17/23 20:00 O2 Del Method Nasal Cannula 07/17/23 20:00 O2 Flow Rate 4 07/17/23 20:00 Oxygen Flow Rate 4 07/17/23 19:41 BMI result Body Mass Index 55.2 VITAL SIGNS: Reviewed. GENERAL: Elevated BMI, Well developed, well nourished, in no acute distress. HEAD: Normocephalic/atraumatic EYES: PERRLA, EOMI EARS: Ext canals without abnormality NOSE: Nares patent bilateral OROPHARYNX: no oral lesions noted, posterior pharynx clear NECK: Supple, no adenopathy LUNGS: Normal breath sounds. No adventitious sounds or accessory muscle use. SpO2<94> on 2 L via nasal cannula CARDIOVASCULAR: Regular rate and rhythm without noted murmurs, no JVD or lower extremity edema. ABDOMEN: Soft, non-tender, non-distended with bowel sounds. MUSCULOSKELETAL: No tenderness, deformities, or effusions noted on gross inspection. EXTREMITIES: No cyanosis, clubbing, there is chronic lower extremity edema that is nonpitting in nature there is no erythema or induration noted, there is poor foot care. SKIN: Inspection of the skin reveals no rashes NEUROLOGIC: Alert and oriented x 3. Strength and sensation to light touch were grossly intact x 4. Medical Decision Making Medical Decision Making [facility] Narrative: 2145: 77-year-old male with history and clinical presentation, DDX: Not compliant with supplemental oxygen, will evaluate for infection to include pneumonia, will evaluate for COVID/influenza, low clinical suspicion for CHF. Reviewed all investigations and hematologic indices are negative for leukocytosis but there is a chronic left shift, there is no anemia or thrombocytopenia. Chemistry indices are grossly within normal limits without evidence of LEELEE there is no electrolyte derangements. High sensitivity troponin is chronically detectable without acute changes on EKG and there is no evidence acute CHF exacerbation. Viral testing is negative for COVID/influenza. Chest x-ray negative for infiltrate or venous congestion and otherwise my interpretation is in agreement with radiology's impression. My interpretation is patient was not on his prescribed oxygen supplementation and developed mild hypoxia which has since resolved on supplemental oxygen. There is no evidence to suggest acute infection/viral infection, CHF or ACS. He is otherwise discharged back to the facility with strict instructions that they use his supplemental oxygen. Differential Diagnosis Differential Diagnoses: The differential diagnosis associated with the presentation includes Please see the discussion above Admission/Observation Consideration of admission/observation: Escalation of care including admission/observation considered Please see the discussion above Lab Data [facility] Lab Attestation statement: I reviewed the patient's lab results. Please see the discussion above 07/17/23 19:51 07/17/23 19:51 Labs: Lab Results 07/17/23 07/17/23 Range/Units 19:51 23:22 WBC 10.8 (4.8-10.8) X10*3/uL RBC 5.62 (4.60-5.80) X10*6/uL Hgb 14.6 (14.0-18.0) g/dl Hct 48.9 (42.0-52.0) % MCV 87.0 (80.0-98.0) fL MCH 26.0 L (27.0-33.0) pg MCHC 29.9 L (31.0-36.0) g/dl RDW 15.7 (11.0-16.0) % Plt Count 265 (160-400) X10*3/uL MPV 9.1 L (9.4-12.4) fL Immature Gran % (Auto) 0.6 H (0.0-0.4) % Neut % (Auto) 82.6 H (45-73) % Lymph % (Auto) 9.6 L (20-40) % [place] % (Auto) 6.2 (2-11) % Eos % (Auto) 0.6 (0-4) % Baso % (Auto) 0.4 (0-2) % Lymph # (Auto) 1.0 L (1.2-4.9) X10*3/uL [place] # (Auto) 0.7 (0.1-1.2) X10*3/uL Eos # (Auto) 0.1 (0.0-0.4) X10*3/uL Baso # (Auto) 0.0 (0.0-0.2) X10*3/uL Abs Immat Gran (auto) 0.06 H (0.00-0.03) X10*3/uL Absolute Neuts (auto) 8.9 H (2.0-8.3) x10*3/uL Absolute Nucleated RBC 0.000 (0.0-0.012) X10*3/uL Nucleated RBC % (auto) 0.0 (0.0-0.2) /100WBC Sodium 140 (135-145) mmol/L Potassium 4.5 D (3.3-5.1) mmol/L Chloride 97 (96-108) mmol/L Carbon Dioxide 36 H (22-29) mmol/L Anion Gap 12 (12-20) BUN 16 (9-16) mg/dL Creatinine 0.82 (0.5-1.4) mg/dL Estim Creat Clear Calc 132.5 Estimated GFR > 60 Random Glucose 198 H (60-115) mg/dL Calcium 9.7 (8.4-10.2) mg/dL Troponin I High Sens 4.0 (<3.5-35.0) ng/L B-Natriuretic Peptide 62 (<100) pg/mL COVID-19 (KINJAL) Negative (Negative) COVID-19 Clin Com See Note Influenza Type A (DULCE) Negative (Negative) Influenza Type B (DULCE) Negative (Negative) Influenza A & B Note See Note Independent Interpretation I performed an independent interpretation of an: EKG Interpretation: Atrial fibrillation, HR-102, no STEMI, QRS/QTC is within normal limits. Radiology Impression Discussion of test interpretation with radiology: I have reviewed the radiologist's reading. Radiologist Impression: Please see the discussion above External Record Review External record reviewed: Outpatient record, Prior outpatient labs and Prior outpatient radiology Chronic Conditions Patient?s care impacted by: Hypertension and Other Chronic anticoagulation Critical Care Time Critical Care Time Critical Care Time: Yes Total Critical Care Time: 30 Attestation: I personally attest to this time spent taking care of the patient. Discharge Plan Discharge Clinical Impression: Hypoxemia Patient Disposition: Xfer Other Instructions: Hypoxia (ED), Using Oxygen at Home (ED) Additional Instructions: 1. Resume all home medications as prescribed. 2. If patient has supplemental oxygen ordered please use it as prescribed. 3. Patient will need to follow-up with his primary care doctor 1st thing in the morning for re-evaluation further outpatient management. Possible discussion regarding evaluation for EDY(obstructive sleep apnea) Prescriptions: No Action gabapentin 600 mg tablet 600 mg PO TID atorvastatin 20 mg tablet 1 tab PO DAILY sertraline 100 mg tablet 1 tab PO DAILY amlodipine 2.5 mg tablet 1 tab PO DAILY tamsulosin 0.4 mg capsule 1 cap PO BEDTIME trazodone 100 mg tablet 1 tab PO BEDTIME albuterol sulfate [ProAir HFA] 90 mcg/actuation Hfa Aerosol Inhaler 2 puff INHALATION Q4H PRN (Reason: Wheezing) diclofenac sodium 1 % gel 1 g topical Q6H PRN (Reason: Pain) Protocol: Apply to: Apply to: BOTH KNEES polyvinyl alcohol [Artificial Tears (polyvin alc)] 1.4 % Drops 1 drp OPHTHALMIC (EYE) BID thiamine HCl (vitamin B1) 100 mg Tablet 100 mg PO DAILY cholecalciferol (vitamin D3) 25 mcg (1,000 unit) Tablet 25 mcg PO DAILY ipratropium-albuterol 0.5 mg-3 mg(2.5 mg base)/3 mL Solution For Nebulization 3 ml INHALATION Q4H PRN (Reason: Shortness Of Breath) Debrox 6.5 % Drops 5 drp OTIC (EARS) BEDTIME Rx Instructions: TAKE FOR 6 DAYS PER MONTH STARTING ON THE AND ENDING ON THE OF EACH MONTH hydrocortisone 1 % Cream 1 appl TOPICAL BID PRN (Reason: DRY SKIN AND ITCHING) Eliquis 5 mg Tablet 5 mg PO BID Qty: 60 0RF amiodarone 200 mg Tablet 200 mg PO TID Qty: 30 0RF acetazolamide 250 mg Tablet 250 mg PO BID Qty: 60 0RF spironolactone 25 mg Tablet 25 mg PO DAILY Qty: 30 0RF Protocol: Hold for SBP< HOLD for SBP < : 90 furosemide 40 mg tablet 40 mg PO QAM Qty: 30 0RF oxycodone 5 mg tablet 1 tab PO BID PRN (Reason: Pain) Qty: 10 0RF Rx Instructions: DOSES MUST BE GIVEN AT LEAST 6 HOURS APART
[2023-07-17 23:09] LABS: B Type Natriuretic Peptide 62 pg/mL (<100)
[2023-07-17 23:58] LABS: COVID-19 Test Negative (Negative); IDNOW Serial# 6674DD1D
[2023-07-18 00:12] LABS: IDNOW Serial# 58CA691E; Influenza A Negative (Negative); Influenza B2 Negative (Negative)
[2023-07-18 01:03] VITALS: BP 128/63; PULSE 102; RESP 12; O2SAT 93
--- NOTE | 2023-07-18 01:15 | PC.NURSE ---
[facility] at [facility] regarding [facility] returning. Discharge instructions reviewed with verbal understanding obtained.
--- NOTE | 2023-07-18 01:18 | MHC.EDTECH ---
CALL OUT TO [facility] AT 0116 TO BOOK TRANSPORT BACK TO [facility], ESTIMATED ETA GIVEN WAS WITHIN THE HOUR
== END 2023-07-18 02:03 | disposition home or self-care (01) ==
PROVIDERS: Emergency Provider Student in an Organized Health Care Education/Training Program
DX: R09.02 Hypoxemia (principal); R06.02 Shortness of breath; I48.91 Unspecified atrial fibrillation; Z11.52 Encounter for screening for COVID-19; Z20.822 Contact with and (suspected) exposure to COVID-19; Z79.899 Other long term (current) drug therapy
CPT/HCPCS: 36415; 71045; 80048; 83880; 84484; 85025; 87502; 87635; 93005; 99283; 99285

== ENCOUNTER 2023-10-31 12:47 | Outpatient (AMB) | payer OTHER, SELFPAY ==
[2023-10-31 13:25] VITALS: BP 120/68; PULSE 87; BMI 50.2
--- NOTE | 2023-10-31 13:25 | A.OFFVIS_ITS ---
Intake Vital Signs 10/31/23 13:25 Height 6 ft Weight 370 lb BMI 50.2 BMI Reason not done Patient refused/unable BP 120/68 Blood Pressure Location Lt brachial Position Supine Pulse 87 Intake Visit Reasons: C DC fu (rs) Intake Note: follow up PT feels great Allergies No Known Allergies Allergy (Verified 04/07/22 18:25) Medication List - Last Reconciled 10/31/23 by Josie Tan NP acetazolamide 250 mg PO BID albuterol sulfate 90 mcg/actuation (ProAir HFA) 2 puffs inhalation Q4H PRN amiodarone 200 mg PO TID amlodipine 1 tab PO DAILY apixaban (Eliquis) 5 mg PO BID atorvastatin 1 tab PO DAILY carbamide peroxide 6.5% (Debrox) 5 drps otic (ears) BEDTIME cholecalciferol (vitamin D3) 25 mcg PO DAILY diclofenac sodium 1% 1 g See Protocol topical Q6H PRN furosemide 40 mg PO QAM gabapentin 600 mg PO TID hydrocortisone 1% 1 appl topical BID PRN ipratropium-albuterol 0.5 mg-3 mg(2.5 mg base)/3 mL 3 mL inhalation Q4H PRN oxycodone 1 tab PO BID PRN polyvinyl alcohol 1.4% (Artificial Tears (polyvinyl alcohol)) 1 drp ophthalmic (eye) BID sertraline 1 tab PO DAILY spironolactone 25 mg See Protocol PO DAILY tamsulosin 1 cap PO BEDTIME thiamine HCl (vitamin B1) 100 mg PO DAILY trazodone 1 tab PO BEDTIME HPI HPI Comments History of Present Illness Details 78-year-old male presents today from [facility] for a follow-up after being hospitalized back in May. He reports he feels great. He denies any shortness of breath, chest pain, fluttering, palpitations, or dizziness. He is mostly sedentary and in bed and occational gets up the the chair or gets up for showerig. He is on a cardiac/low salt diet. Weight today is a reported weight from facility as patient is bed bound. 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 Cor pulmonale Atrial fibrillation with rapid ventricular response Unsteady gait HTN (hypertension) CKD (chronic kidney disease) Alcoholism Anemia Social History Household Members: Other Household Members Other:: faclity Housing: Assisted Do you presently have visiting nurse or other home services: Yes (skilled nursing per pt) Unable to assess alcohol history related to: Unable to respond Patient Tobacco Use Status: Never used Tobacco Advance Directives Date on File: 04/08/22 service: No Current occupational status: retired Review of Systems Const Denies weakness ENT Denies dizziness Card Denies chest pain, Denies chest pain with activity, Denies syncope, Denies rapid heart rate, Denies pedal edema, Denies edema, Denies leg edema, Denies lightheadedness, Denies palpitations, Denies dyspnea, Denies dyspnea on exertion and Denies orthopnea Resp Denies cough, Denies dyspnea and Denies dyspnea on exertion GI Denies hematochezia and Denies change in stool character Musc Denies abnormal gait, Denies muscle cramps, Denies muscle weakness, Denies numbness, Denies radiating pain into limb and Denies tingling Neuro Denies abnormal gait, Denies dizziness, Denies syncope, Denies numbness, Denies tingling and Denies weakness Endo Denies palpitations Physical Exam Vital Signs: Last Vital Signs Pulse 87 10/31/23 13:25 BP 120/68 10/31/23 13:25 BMI result Body Mass Index 50.2 Const General: healthy appearing and no acute distress Orientation/consciousness: patient oriented x3 HEENT Head: Yes normal to inspection Eyes General: appearance normal, both eyes and all related structures Neck Neck: Yes normal visual inspection Chest Chest palpation & inspection: normal inspection of the chest Resp Effort & Inspection: normal respiratory effort Auscultation: clear to auscultation bilaterally Cardio Jugular venous distension: no JVD Palpation: normal PMI Rate: regular rate Rhythm: regular rhythm Heart sounds: S1 normal heart sound present, S2 normal heart sound present, no click, no gallops, no murmurs and no rubs GI Inspection: Yes normal to inspection Palpation (GI): Soft to palpation Skin General skin exam: no rashes or lesions noted Neuro General: patient oriented x3 Extrem General: Yes normal to inspection Psych Appearance: grossly normal Office Procedures EKG Details: EKG today, atrial flutter. Rate 79 bpm. [id number], Complete Assessment & Plan Assessment & Plan (1) Atrial flutter: Code(s): I48.92 - Unspecified atrial flutter (2) HTN (hypertension): Code(s): I10 - Essential (primary) hypertension Plan EKG today showed atrial flutter with rate of 79 bpm. Amiodarone should be 200mg once daily. Patient made aware. He has been compliant with medications since discharge. Discussed with Dr. Cantor, cardioversion for atrial flutter. Blood pressure within goal today. No bleeding with Eliquis. On amlodipine, furosemide, spironolactone - continue Orders: Orders Cardioversion 10/31/23 I48.92 - Unspecified atrial flutter Basic Metabolic Panel 10/31/23 I10 - Essential (primary) hypertension, I48.92 - Unspecified atrial flutter Medications: Changed From amiodarone 200 mg PO TID 30 tabs 0RF To amiodarone 200 mg PO DAILY 30 tabs 0RF Coding Level of Care Code Est Pt Level 3 (14031) Diagnoses Atrial flutter I48.92 HTN (hypertension) I10 CPT Codes EKG - CPT: 76469-[id number], Complete ([id number])
== END 2023-10-31 14:22 | disposition home or self-care (01) ==
PROVIDERS: Visit Provider Nurse Practitioner
DX: I48.92 Unspecified atrial flutter (principal)
CPT/HCPCS: 93010; 99213

== ENCOUNTER → 2023-10-31 12:47 | Outpatient (BNVA) | payer OTHER, SELFPAY | PROVIDERS: Visit Provider Nurse Practitioner | DX: I48.92 Unspecified atrial flutter (principal); I10 Essential (primary) hypertension | CPT/HCPCS: 93005; 99212 ==

== ENCOUNTER 2023-11-20 12:18 | Day surgery (SDC) | payer OTHER, SELFPAY ==
--- NOTE | 2023-11-18 13:34 | HO.ANESPROP2 ---
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 Cor pulmonale Atrial fibrillation with rapid ventricular response Unsteady gait HTN (hypertension) CKD (chronic kidney disease) Alcoholism Anemia Social History Social History Household Members: Other Household Members Other:: faclity Housing: [facility] Do you presently have visiting nurse or other home services: Yes (correction per pt) Unable to assess alcohol history related to: Unable to respond Patient Tobacco Use Status: Never used Tobacco Advance Directives: No Advance Directives Information Provided: Yes Advance Directives Date on File: 04/08/22 service: No Current occupational status: retired [employer] Allergies Allergy/AdvReac Type Severity Reaction Status Date / Time No Known Allergies Allergy Verified 04/07/22 18:25 Home Medications Medication Instructions Recorded Confirmed Last Taken Type albuterol sulfate 90 mcg/actuation 2 puff inhalation Q4H PRN Wheezing 04/08/22 06/12/23 Unknown History aerosol inhaler (ProAir HFA) amlodipine 2.5 mg tablet 1 tab PO DAILY 04/08/22 06/12/23 04/07/22 History atorvastatin 20 mg tablet 1 tab PO DAILY 04/08/22 06/12/23 04/07/22 History cholecalciferol (vitamin D3) 25 25 mcg PO DAILY 04/08/22 06/12/23 04/07/22 History mcg (1,000 unit) tablet diclofenac sodium 1 % topical gel 1 g topical Q6H PRN Pain 04/08/22 06/12/23 Unknown History gabapentin 600 mg tablet 600 mg PO TID 04/08/22 06/12/23 04/07/22 History polyvinyl alcohol 1.4 % eye drops 1 drp ophthalmic (eye) BID 04/08/22 06/12/23 04/07/22 History (Artificial Tears (polyvinyl alcohol)) sertraline 100 mg tablet 1 tab PO DAILY 04/08/22 06/12/23 04/07/22 History tamsulosin 0.4 mg capsule 1 cap PO BEDTIME 04/08/22 06/12/23 04/06/22 History thiamine HCl (vitamin B1) 100 mg 100 mg PO DAILY 04/08/22 06/12/23 04/07/22 History tablet trazodone 100 mg tablet 1 tab PO BEDTIME 04/08/22 06/12/23 04/07/22 History carbamide peroxide 6.5 % ear drops 5 drp otic (ears) BEDTIME 06/12/23 06/12/23 06/02/23 History (Debrox) hydrocortisone 1 % topical cream 1 appl topical BID PRN DRY SKIN 06/12/23 06/12/23 Unknown History AND ITCHING ipratropium 0.5 mg-albuterol 3 mg 3 ml inhalation Q4H PRN Shortness 06/12/23 06/12/23 Unknown History (2.5 mg base)/3 mL nebulization Of Breath soln Exam Narrative Narrative: ECHO 2022 Conclusions: - 1. Normal LV ejection fraction with mild LVH 2. No intracardiac thrombi are or masses of agitation 3. No intracardiac shunting 4. Normal cardiac valvular Dopplers 5. Small pericardial effusion more prominent near the right-sided chambers Assessment and Plan Assessment Anesthesia Assessment: Chart Reviewed
[2023-11-20 12:45] VITALS: BMI 53.5
[2023-11-20 12:51] VITALS: BP 105/49; PULSE 76; RESP 18; TEMP 36.7; O2SAT 95
[2023-11-20 13:05] LABS: Glucose, Whole Blood 128 mg/dL (60-115)
[2023-11-20] MEDS: Lactated Ringers 1,000 ML 50 ML IVCONT (13:16)
--- NOTE | 2023-11-20 13:57 | MHC.SHP ---
Pre-Procedural Eval Section A - 24 Hr Update-Section A only Date of Service: 11/20/23 The patient is an INPATIENT: No Changes since office visit: Yes Patient answered all questions; No Cold of Flu in the past 2 weeks, No New Medical Problems and No Changes in Medication The patient has been examined within 24 hours of the surgical procedure. The History & Physical has been completed within 30 days and I have reviewed it.: Yes Section B - Complete if H&P > 30 days Chief Complaint: Unspecified atrial flutter Allergies: Allergies Allergy/AdvReac Type Severity Reaction Status Date / Time No Known Allergies Allergy Verified 04/07/22 18:25 Plan I have reviewed the history and physical and performed a pertinent physical examination on my patient. No changes have occurred unless specified. Time Spent With Patient Time: Total time managing care of this patient today ____ minutes.
--- NOTE | 2023-11-20 14:43 | ECG_ITS ---
Test Reason : s/p cardioversion Blood Pressure : / mmHG Vent. Rate : 062 BPM Atrial Rate : 062 BPM P-R Int : 222 ms QRS Dur : 102 ms QT Int : 444 ms P-R-T Axes : 074 083 072 degrees QTc Int : 450 ms Sinus rhythm with 1st degree A-V block Otherwise normal ECG When compared with ECG of 17-JUL-2023 19:58, Sinus rhythm has replaced Atrial fibrillation Vent. rate has decreased BY 42 BPM Referred By: Brett Cantor Electronically Signed By:BRETT CANTOR MD
[2023-11-20 14:53] VITALS: BP 101/38; PULSE 57; RESP 16; TEMP 36.5; O2SAT 99
[2023-11-20 14:58] VITALS: BP 110/45; PULSE 57; RESP 16; O2SAT 99
[2023-11-20 15:03] VITALS: BP 99/35; PULSE 60; RESP 16; O2SAT 99
[2023-11-20 15:08] VITALS: BP 106/66; PULSE 61; RESP 14; O2SAT 96
[2023-11-20 15:23] VITALS: BP 109/53; PULSE 65; RESP 16; TEMP 36.5; O2SAT 96
--- NOTE | 2023-11-20 15:57 | HO.CARDIVERS ---
Cardioversion Procedure Note Cardioversion Date of Procedure: Today Ordering Provider: Josie Tan Performing Provider: Dr. Cantor Indication for Procedure: Recurrent persistent atrial flutter Pre-Op Diagnosis: Same Post-Op Diagnosis: Normal sinus rhythm Performed with Transesophageal Echo: No Consent: Verbal and Written consent was obtained from the patient before starting. The patient was made aware of the risk of synchronized cardioversion including benefits and alternatives Procedure: After consent obtained, cardioversion pads were attached in anteroposterior configuration and the patient was sedated by the anesthesia team. Once adequate sedation achieved, patient was delivered 200 joules of biphasic synchronized energy in anteroposterior configuration Complications: None Impression: Successful conversion to sinus rhythm Recommendations: 1. 12 lead EKG 2. Continue amiodarone and full oral anticoagulation 3. Follow up in the office
== END 2023-11-20 16:18 | disposition home or self-care (01) ==
PROVIDERS: Visit Provider Internal Medicine Cardiovascular Disease
PROC: 5A2204Z Restoration of Cardiac Rhythm, Single (ICD-10-PCS; principal; 2023-11-20 14:10)
DX: I48.92 Unspecified atrial flutter (principal); I48.91 Unspecified atrial fibrillation; Z79.01 Long term (current) use of anticoagulants; I13.0 Hypertensive heart and chronic kidney disease with heart failure and stage 1 through stage 4 chronic kidney disease, or unspecified chronic kidney disease; N18.9 Chronic kidney disease, unspecified; I50.82 Biventricular heart failure; Z79.899 Other long term (current) drug therapy
CPT/HCPCS: 82947; 92960; 93005; J2250; J2704

== ENCOUNTER → 2023-11-20 12:18 | Outpatient (BNV) | payer OTHER, SELFPAY | PROVIDERS: Visit Provider Internal Medicine Cardiovascular Disease | DX: I48.3 Typical atrial flutter (principal) | CPT/HCPCS: 92960; 93010 ==